=== PATIENT | male | born 1975 ===

== ENCOUNTER 2018-03-31 12:25 | Inpatient (IN) | payer OTHER ==
[~2018-03-31] VITALS: Ht 165.1 cm; Wt 60.4 kg
[2018-03-31 14:35] VITALS: BP 173/97
--- NOTE | 2018-03-31 15:07 | Physical Therapy Evaluation ---
PT Evaluation-General Medical Diagnosis Admission Date March 31, 2018 at 14:09 Medical Diagnosis: CVA Onset Date: Mar 25, 2018 Therapy Diagnosis Therapy Diagnosis: impaired mobility/weakness Precautions Precautions/Isolations: Fall Prevention, Standard Precautions Weight Bear Status Right Lower Extremity: Right Full Weight Bearing Left Lower Extremity: Left Full Weight Bearing Referral Physician: Guy Reason for Referral: Evaluation/Treatment Medical History Pertinent Medical History: HTN Additional Medical History was not taking meds for HTN due to cost Current History s/p right CVA with left hemiparesis Reviewed History: Yes Social History Home: Single Level Current Living Status: Other Family (sister) Entry Into Home: Stairs With Railing PT Steps Into Home: 2 Prior/Core FIM Prior Level of Function Functional Reynolds Measure 0=Not Assessed/NA 4=Minimal Assistance 1=Total Assistance 5=Supervision or Setup 2=Maximal Assistance 6=Modified Reynolds 3=Moderate Assistance 7=Complete Reynolds Bed Mobility: 7 Transfers (B,C,W/C) (FIM): 7 Gait: 7 Locomotion: 7 PT Evaluation-Current Subjective Patient agrees to PT. He was transferred from [facility] via w/c van. Pain Numeric Pain Scale: 0-No Pain Location: No Pain Reported Objective Patient Orientation: Normal For Age Problem Solving: Fair ROM/Strength ROM Lower Extremities bilateral LE WNL Strenght Lower Extremities right knee flexion/extension 4/5; hip flexion 4/5; DF/PF 4/5 left knee flexion 2-/5/extension 3-/5; hip flexion 2-/5 DF/PF 0/5 Integumentary/Posture Integumentary refer to nursing notes Bowel Incontinence: No Bladder Incontinence: No Posture WFL Neuromuscular (Tone, Coordination, Reflexes) noted increase extension tone left LE knee extension and supination left foot/ flaccid left UE/diminished proprioception left LE Sensory Vision: Functional Hearing: Functional Sensation Right Lower Extremit: Intact Sensation Left Lower Extremity: Impaired Transfers Functional Reynolds Measure 0=Not Assessed/NA 4=Minimal Assistance 1=Total Assistance 5=Supervision or Setup 2=Maximal Assistance 6=Modified Reynolds 3=Moderate Assistance 7=Complete IndependenceIRFPAI Quality Coding Scale 6 Independent with activity with or without an assistive device 5 Patient requires set up or clean up by helper. Patient completes activity by themselves 4 Supervision or touching assist (CGA). [place] provide cues , steadying assist 3 The helper provides less than half the effort to complete the activity 2 The helper provides more than half the effort to complete the activity 1 Dependent. The helper does all the effort to complete an activity 7 Patient refused to complete or attempt activity 9 The patient did not perform the activity before the current illness or injury 88 Not attempted due to Medical conditions or safety concerns Transfers (B, C, W/C) (FIM): 4 Scootin Rollin Roll Left to Right (QC): 5 Supine to/from Sit: 5 Sit to/from Stand: 4 bed t/f WC(FIM only if WC use): 4 Sit to Lying (QC): 5 Lying to Sitting/Side of Bed(Q: 5 Sit to Stand (QC): 4 Chair/Oyw-jz-Gteir Xfer(QC): 4 Car Transfer (QC): 4 Gait Does the Patient Walk?: Yes Mode of Locomotion: Both Anticipated Mode of Locomotion: Walk Gait (FIM): 3 Distance (FIM): 3=150 ft Walk 10 feet (QC): 4 Walk 50 ft with 2 Turns(QC): 4 Walk 150 ft (QC): 4 Walking 10ft/uneven surface-QC: 4 Distance: 150' Gait Level of Assist: 4 Gait Persons Needed: 1 Gait Assistive Device: Walker Platform (left) Comments/Gait Description left knee immobilizer in place during gait training. PT to add zabrina wrap to assist with left foot clearance. Patient has a fear of falling and is very guarded with weight shifting to clear left LE. Wheelchair Training Does the Pt Use a Wheelchair?: Yes Wheelchair (FIM): 5 Wheelchair Distance (FIM): 3=150 ft Distance: 150' Wheelchair Level of Assist: 5 Wheel 50 ft with 2 turns (QC): 5 Wheel 150 ft (QC): 5 Type of Wheelchair: Manual Stairs Stairs (FIM): 1 #of Steps: 1 Level of Assist: 3 1 Step (curb) (QC): 3 4 Steps (QC): 88 Assistive Device: Walker 12 Steps (QC): 88 Balance Sitting Static: Normal Sitting Dynamic: Normal Standing Static: Fair Standing Dynamic: Poor Picking up an Object (QC): 3 Assessment/Needs 42 y.o. male, s/p right CVA with left hemiparesis, will benefit from skilled PT to address functional strength and mobility to improve current LOF. Patient is currently limited with left sided weakness and safety awareness. Rehab Potential: Fair PT Short Term Goals Short Term Goals Time Frame: April 10, 2018 Transfers (B,C,W/C) (FIM): 4 Gait (FIM): 4 Distance (FIM): 3=150 ft Gait Distance Comment: 200' Gait Level of Assist: 4 Gait Assistive Device: Walker Osei Wheelchair (FIM): 5 Wheelchair distance (FIM): 3=150 ft Wheelchair Distance: 200' Wheelchair Level of Assist: 5 Stairs (FIM): 2 # of Steps: 4 Stairs Level of Assist: 4 PT Senior Care Goals Senior Care Goals PT Steel Spar Operator Goals Time Frame: April 30, 2018 Transfers (B,C,W/C) (FIM): 6 Sit to Lying (QC): 6 Lying-Sitting on Side/Bed(QC): 6 Sit to Stand (QC): 6 Rollin Roll Left to Right (QC): 6 Chair/Uma-we-Ohocg Xfer(QC): 6 Car Transfer (QC): 6 Does the Patient Walk: Yes Gait (FIM): 5 Gait distance (FIM): 3=150 ft Distance: 250' Walk 10 feet (QC): 6 Walk 10ft-Uneven Surface(QC): 5 Walk 50ft with 2 Turns (QC): 6 Walk 150 ft (QC): 6 Gait Level of Assist: 5 Gait Assistive Device: Walker Osei Does the Pt use WC or Scooter?: Yes Wheelchair (FIM): 6 Wheelchair distance (FIM): 3=150 ft Wheelchair Level of Assist: 6 Wheel 50 feet with 2 turns (QC: 6 Stairs (FIM): 5 # of Steps: 12 1 Step (curb) (QC): 5 4 Steps (QC): 5 12 Steps (QC): 5 Stairs Level Of Assist: 5 Picking up an Object (QC): 6 PT Plan Problem List Problem List: Activity Tolerance, Functional Strength, Safety, Balance, Gait, Transfer Treatment/Plan Treatment Plan: Continue Plan of Care Treatment Plan: Bed Mobility, Concurrent Therapy, Education, Functional Activity Aristides, Functional Strength, Group Therapy, Gait, Safety, Therapeutic Exercise, Transfers Treatment Duration: April 30, 2018 Frequency: At least 5 of 7 days/Wk (IRF) Estimated Hrs Per Day: 1.5 hours per day Patient and/or Family Agrees t: Yes Safety Risks/Education Patient Education: Gait Training, Transfer Techniques, Steps, Safety Issues Teaching Recipient: Patient Teaching Methods: Demonstration, Discussion Response to Teaching: Verbalize Understanding, Return Demonstration Discharge Recommendations Therapy D/C Recommendations: Home w/ Family Support Time/GCodes Time In: 1410 Time Out: 1450 Total Billed Treatment Time: 40 Total Billed Treatment 1 visit EVModC 20 min GT 20 min CECILIA FENTON PT March 31, 2018 15:07
--- NOTE | 2018-03-31 15:14 | PM&R Post Admission Assessment ---
Post Admission Physician Asses Date seen by provider: March 31, 2018 Time seen by provider: 15:00 Admisison Dx: (1) CVA (cerebral vascular accident) The preadmission screen agrees with the post admission assessment that the patient is a good candidate for inpatient rehabilitation. The patient will have a comprehensive program of inpatient rehabilitation with a goal of maximizing level of functional independence prior to discharge home with spouse. The patient will have PT/OT ninety minutes per day, each discipline, five days a week for gait, strengthening, conditioning, balance, ADLs, any patient/family/caregiver training as necessary. Speech therapy to do cognitive speech and swallow assessment and treat as indicated. Rehabilitation nursing to assist with bowel, bladder, skin, medication administration, pain management. Vascular Radiologist to assist with discharge planning, community reentry. SCD's and Xaralto for DVT prophylaxis. He appears to be well motivated to participate in three hours of therapy a day. He should be able to tolerate three hours of therapy a day from a medical standpoint. He should benefit from the three hours of therapy a day. He has a reasonable discharge plan, reasonable discharge rehabilitation goals and a supportive family. He has various comorbidities that need to be closely monitored with medications and treatments adjusted on a daily basis as needed. These include: HTN Barriers to discharge for this patient who had been independent prior to this are for him to be modified independent to supervision for ADLs and mobility skills prior to discharge home with spouse, so as to lessen the burden of the caregivers. Risks for this patient include: 1. Fall 2. Fracture 3. DVT 4. Pulmonary embolism 5. Poorly controlled HTN 6. Skin breakdown 7. Contractures 8. Poorly controlled pain 9. Urinary retention 10. UTI 11. Respiratory infection 12. Aspiration Estimated Length of Stay: 21 days Prognosis: Rehab prognosis appears good for goal of discharge home with spouse modified independent to supervision for ADLs and mobility skills. General: Alert, Oriented X3, Cooperative, No Acute Distress HEENT: Atraumatic, PERRLA, EOMI, Mucous Memb Moist/[place], Other (Coughing with swaloowing liquids) Neck: Supple, No JVD Lungs: Clear to Auscultation Heart: Regular Rate Abdomen: Normal Bowel Sounds, Soft, No Tenderness Extremities: No Edema Neuro: Other (Left HP) ANALY CHRISTY MD March 31, 2018 15:14
--- NOTE | 2018-03-31 16:07 | Occupational Therapy Eval ---
OT Evaluation-General/PLF Medical Diagnosis Admission Date March 31, 2018 at 14:09 Medical Diagnosis: CVA Onset Date: Mar 25, 2018 Therapy Diagnosis Therapy Diagnosis: decreased self care skills Precautions Precautions/Isolations: Fall Prevention, Standard Precautions Referral Physician: Guy Medical History Pertinent Medical History: HTN Current History Pt admitted secondary to CVA with left side deficits Reviewed History: Yes Social History Home: Single Level Current Living Status: Other Family (sister) Entry Into Home: Stairs With Railing Steps Into Home: 2 ADL-Prior Level of Function ADL PLOF Comments Pt reports being independent with self care and mobility prior to hospitalization DME/Equipment: Tub/Shower OT Current Status Subjective Pt sitting in w/c, agrees to therapy. Pt has no c/o pain. Mental Status/Objective Patient Orientation: Person, Place, Situation Current Glasses/Contacts: No Hearing Aids: No Dentures/Partials: No Hand Dominance: Right Upper Extremity ROM Right UE AROM WFL Left UE: no active movement noted. PROM WFL Upper Extremity Coordination Right UE intact Left UE impaired Upper Extremity Strength Right UE WFL Left UE 0/5 ADL-Treatment ADL-Current Pt performed w/c mobility to restroom with SBA. Grooming completed seated at sink. Pt combed hair and washed face with SBA using right UE. Pt demonstrated ability to perform stand pivot transfer w/c<-> toilet with minimal assistance using grab bar for balance and safety. Pt was shown shower in room and requested to practice transfer to shower bench. Pt able to transfer w/c <-> shower bench with minimal assistance. Pt requests to shower tomorrow morning. Pt doffed shoes and socks with supervision and increased time. Pt able to don right sock with SBA. Donned left sock with mod assist. Pt donned right shoe with assist only to tie. Max assist to don left shoe and assist to tie. Pt requests to get into bed after session. Transfer w/c to bed with minimal assistance to right side. Sit to supine with SBA. Pt resting in bed with needs met after session. Functional [place] Measure 0=Not Assessed/NA 4=Minimal Assistance 1=Total Assistance 5=Supervision or Setup 2=Maximal Assistance 6=Modified [place] 3=Moderate Assistance 7=Complete IndependenceIRFPAI Quality Coding Scale 6 Independent with activity with or without an assistive device 5 Patient requires set up or clean up by helper. Patient completes activity by themselves 4 Supervision or touching assist (CGA). [place] provide cues , steadying assist 3 The helper provides less than half the effort to complete the activity 2 The helper provides more than half the effort to complete the activity 1 Dependent. The helper does all the effort to complete an activity 7 Patient refused to complete or attempt activity 9 The patient did not perform the activity before the current illness or injury 88 Not attempted due to Medical conditions or safety concerns Eating (FIM): 5 (by report: Pt reports assist to manage packages/containers, but states he is able to feed self after set up.) Eating (QC): 5 Grooming (FIM): 5 On/Off Footwear (QC): 2 Toilet/Commode Transfer (FIM): 4 Toilet Transfer (QC): 3 Education OT Patient Education: Rehab process Teaching Recipient: Patient Teaching Methods: Discussion Response to Teaching: Verbalize Understanding OT Short Term Goals Short Term Goals Time Frame: April 07, 2018 Bathing(FIM): 4 Upper Body Dressing(FIM): 4 Lower Body Dressing(FIM): 4 Toileting(FIM): 4 Shower Transfer(FIM): 4 Additional Short Term Goals: 2-Verbalize Understanding, 3-ImproveStrength/Aristides 1=Demonstrate adherence to instructed precautions during ADL tasks. 2=Patient will verbalize/demonstrate understanding of assistive devices/ modifications for ADL. 3=Patient will improve strength/tolerance for activity to enable patient to perform ADL's. OT Director Of Audiology Goals Director Of Audiology Goals Time Frame: April 21, 2018 Eating (FIM): 6 Eating (QC): 6 Groomin Oral Hygiene (QC): 6 Bathing(FIM): 5 Shower/Bathe Self (QC): 5 Upper Body Dressing(FIM): 6 Upper Body Dressing (QC): 6 Lower Body Dressing(FIM): 5 Lower Body Dressing (QC): 5 On/Off Footwear (QC): 5 Toileting(FIM): 6 Toileting Hygiene (QC): 6 Toilet/Commode Transfer(FIM): 6 Toilet/Commode Transfer (QC): 6 Shower Transfer(FIM): 5 Additional Goals: 2-Verbalize Understanding, 3-ImproveStrength/Aristides 1=Demonstrate adherence to instructed precautions during ADL tasks. 2=Patient will verbalize/demonstrate understanding of assistive devices/ modifications for ADL. 3=Patient will improve strength/tolerance for activity to enable patient to perform ADL's. OT Education/Plan Problem List/Assessment Assessment: Decreased UE Strength, Dependent Transfers, Impaired Funct Balance , Impaired Self-Care Skills Discharge Recommendations Plan/Recommendations: Continue POC Treatment Plan/Plan of Care Treatment,Training & Education: Yes Patient would benefit from OT for education, treatment and training to promote independence in ADL's, mobility, safety and/or upper extremity function for ADL' s. Plan of Care: ADL Retraining, Functional Mobility, Group Exercise/Act as Ind, UE Funct Exercise/Act, UE Neuromus Re-Ed/Coord Treatment Duration: April 21, 2018 Frequency: At least 5 of 7 days/Wk (IRF) Estimated Hrs Per Day: 1.5 hours per day Agreement: Yes Rehab Potential: Fair Time/GCodes Start Time: 14:50 Stop Time: 15:50 Total Time Billed (hr/min): 60 Billed Treatment Time 1 visit, EVM(30minutes), ADLx2(30minutes) GUSTAVO IZAGUIRRE OT March 31, 2018 16:07
--- NOTE | 2018-03-31 17:04 | HISTORY AND PHYSICAL ---
DATE OF SERVICE: CHIEF COMPLAINT: Difficulty with walking. HISTORY OF PRESENT ILLNESS: The patient is a 42-year-old male, who has been working in [place], [place] and living with his who was independent, who sustained a right CVA with resulting left hemiparesis and had a decline in his functional independence. He was treated acutely at [facility] in [place], [place] and is currently on aspirin and Lipitor as well as Xarelto, also lisinopril for hypertension and currently he requires assistance for ADLs, mobility skills and is referred to inpatient rehabilitation at [facility] so as to be closer to home. He is without any medical insurance currently, but I believe he has Medicaid pending.He was outside the window for TPA MRI revealed a RT Internal Capsular stroke.He had been on Xeralto but stopped taking it due to financial reasons. 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 PAST MEDICAL HISTORY: Hypertension.and as per above PAST SURGICAL HISTORY: Noncontributory. ALLERGIES: PENICILLIN. FAMILY HISTORY: Noncontributory. SOCIAL HISTORY: Lives with his spouse in [place], has supportive family nearby. REVIEW OF SYSTEMS: A 10-point review of systems significant for choking with liquids, left-sided weakness and tobaccoism. MEDICATIONS: ASA 81 mg p.o. daily, Lipitor 80 mg p.o. at bedtime, Xarelto 20 mg p.o. subcutaneous evening, lisinopril 5 mg p.o. daily. PHYSICAL EXAMINATION: GENERAL: Significant for male appearing his stated age, alert and oriented, sitting in wheelchair, choking on a beverage and coughing. VITAL SIGNS: He is afebrile, pulse is 86, respirations 16, blood pressure 173/97 and O2 sat 98% on room air. HEENT: Vision, speech, hearing grossly intact. No oral lesion is noted. NECK: Supple without mass. HEART: Regular rate and rhythm. CHEST: Clear. ABDOMEN: Soft, nontender, bowel sounds present. EXTREMITIES: No leg edema, no calf tenderness. MUSCULOSKELETAL: He has functional passive range of motion of all 4 extremities. NEUROLOGIC: He has a left hemiparesis, probable dysphagia with coughing with swallowing liquids. Sensation is grossly intact to touch. Cognition appears grossly intact.Tone is increased in Left LE. Left Knee flex 2-/5 Ext 3-/5 Hip flex 2-/5 0/5 at ankle RT LE 4/5 Left Upper Ext 0/5 RT UE Functional Functional status He is setup for Eating and grooming Min assist for Toilet transfers Max assist for Lower body dressing.He is Min assist for gait with hemiplatform walker IMPRESSION: 1. Right middle cerebral artery distribution stroke with left hemiparesis and probable dysphagia. 2. Hypertension, controlled with medication. 3. Stroke prophylaxis, on aspirin, Xarelto and statin. 4. 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 The patient will have PT, OT as well as speech therapy. Please see post-admission physician evaluation, a separate document for details of plan of care. Rehabilitation nursing to assist with bowel, bladder, skin care, medication administration, pain management. environmental services associate for discharge planning, community reentry. Consult Dr. Hackett to assist with medical management of this out of town patient. PCP is listed as Dr. Rae in [facility]. ESTIMATED LENGTH OF STAY: 21 days. PROGNOSIS: Rehab prognosis appears good for goal of discharging home with spouse, hopefully modified independent to supervision for ADLs, mobility skills. DIET: Regular. CODE STATUS: Full code. Job ID: [id number] DocumentID: [id number] Dictated Date: 03/31/2018 15:04:39 Open Hearth Furnace Operator Date: 03/31/2018 17:03:35 Dictated By: ANALY CHRISTY MD [facility]
[2018-03-31] MEDS: RIVAROXABAN 20 MG TABLET (XARELTO) PO SCH (17:09)
[2018-03-31 17:42] VITALS: BP 146/76
[2018-03-31] MEDS ORDERED: ATORVASTATIN 20 MG (LIPITOR) TABLET PO SCH (21:00)
[2018-03-31] MEDS ORDERED: ATORVASTATIN 40 MG (LIPITOR) TABLET PO SCH (21:00)
[2018-03-31] MEDS: ATORVASTATIN 80 MG (LIPITOR) TABLET PO SCH (21:06)
[2018-04-01 05:47] VITALS: BP 152/89
[2018-04-01] MEDS: ASPIRIN E.C. 81 MG (ECOTRIN) TAB PO SCH (08:32)
[2018-04-01] MEDS: lisINopril 5 MG (PRINIVIL) TABLET PO SCH (08:32)
[2018-04-01] MEDS ORDERED: lisINopril 40 MG (PRINIVIL) TABLET PO SCH (09:00)
--- NOTE | 2018-04-01 09:15 | Occupational Ther Daily Note ---
OT Current Status-Daily Note Subjective Pt in bed, agree to treatment. No c/o pain. Mental Status/Objective Functional [place] Measure 0=Not Assessed/NA 4=Minimal Assistance 1=Total Assistance 5=Supervision or Setup 2=Maximal Assistance 6=Modified [place] 3=Moderate Assistance 7=Complete [place] ADL-Treatment Pt supine to sit with supervision. Transfer to w/c with minimal assistance. To restroom via w/c. Pt transferred w/c <-> shower bench with minimal assistance using grab bars, cues for safety. Seated bathing completed using hand held shower. Pt required assist to wash right UE, bilateral feet, and buttocks. Pt had one LOB while seated requiring minimal assistance to correct. Pt stood with minimal assistance for balance while washing buttocks. Pt required assist to thread left UE into shirt sleeve. Then able to hide puller head and thread right UE into sleeve. Pt required assist to start underwear and shorts over feet, then able to pull up to knees. Pt sit to stand with minimal assistance using grab bar, but requires assist to pull pants up over hips and zip/button shorts. Assist required to start socks over toes, then able to pull on the rest of the way. Assist to don and tie shoes. Grooming tasks completed seated at sink. Pt shaved, combed hair, and brushed teeth with SBA. Pt attempted to stand and use urinal, but was unable to void. Pt required assist for clothing management and to hold urinal. Pt sitting in w/c with needs met after session. Functional [place] Measure 0=Not Assessed/NA 4=Minimal Assistance 1=Total Assistance 5=Supervision or Setup 2=Maximal Assistance 6=Modified [place] 3=Moderate Assistance 7=Complete IndependenceIRFPAI Quality Coding Scale 6 Independent with activity with or without an assistive device 5 Patient requires set up or clean up by helper. Patient completes activity by themselves 4 Supervision or touching assist (CGA). [place] provide cues , steadying assist 3 The helper provides less than half the effort to complete the activity 2 The helper provides more than half the effort to complete the activity 1 Dependent. The helper does all the effort to complete an activity 7 Patient refused to complete or attempt activity 9 The patient did not perform the activity before the current illness or injury 88 Not attempted due to Medical conditions or safety concerns Grooming (FIM): 5 Oral Hygiene (QC): 4 Bathing (FIM): 3 Shower/Bathe Self (QC): 3 Upper Body (FIM): 3 Upper Body Dressing (QC): 3 Lower Body Dressing (FIM): 2 Lower Body Dressing (QC): 2 On/Off Footwear (QC): 2 Shower Transfer(FIM): 4 OT Short Term Goals Short Term Goals Time Frame: April 07, 2018 Bathing(FIM): 4 Upper Body Dressing(FIM): 4 Lower Body Dressing(FIM): 4 Toileting(FIM): 4 Shower Transfer(FIM): 4 Additional Short Term Goals: 2-Verbalize Understanding, 3-ImproveStrength/Aristides 1=Demonstrate adherence to instructed precautions during ADL tasks. 2=Patient will verbalize/demonstrate understanding of assistive devices/ modifications for ADL. 3=Patient will improve strength/tolerance for activity to enable patient to perform ADL's. OT Long-Term Goals Counter Top Assembler Goals Time Frame: April 21, 2018 Eating (FIM): 6 Eating (QC): 6 Groomin Oral Hygiene (QC): 6 Bathing(FIM): 5 Shower/Bathe Self (QC): 5 Upper Body Dressing(FIM): 6 Upper Body Dressing (QC): 6 Lower Body Dressing(FIM): 5 Lower Body Dressing (QC): 5 On/Off Footwear (QC): 5 Toileting(FIM): 6 Toileting Hygiene (QC): 6 Toilet/Commode Transfer(FIM): 6 Toilet/Commode Transfer (QC): 6 Shower Transfer(FIM): 5 Additional Goals: 2-Verbalize Understanding, 3-ImproveStrength/Aristides 1=Demonstrate adherence to instructed precautions during ADL tasks. 2=Patient will verbalize/demonstrate understanding of assistive devices/ modifications for ADL. 3=Patient will improve strength/tolerance for activity to enable patient to perform ADL's. OT Education/Plan Discharge Recommendations Plan/Recommendations: Continue POC Treatment Plan/Plan of Care Patient would benefit from OT for education, treatment and training to promote independence in ADL's, mobility, safety and/or upper extremity function for ADL' s. Plan of Care: ADL Retraining, Functional Mobility, Group Exercise/Act as Ind, UE Funct Exercise/Act, UE Neuromus Re-Ed/Coord Treatment Duration: April 21, 2018 Frequency: At least 5 of 7 days/Wk (IRF) Estimated Hrs Per Day: 1.5 hours per day Agreement: Yes Rehab Potential: Fair Time/GCodes Start Time: 08:00 Stop Time: 09:00 Total Time Billed (hr/min): 60 Billed Treatment Time 1 visit, ADLx4(60minutes) GUSTAVO IZAGUIRRE OT April 01, 2018 09:15
--- NOTE | 2018-04-01 09:42 | PM & R (SOAP) Progress Note ---
Subjective This was a face to face visit with the patient. Date Seen by Provider: April 01, 2018 Time Seen by Provider: 07:45 Subjective/Events-last exam Patient was seen in his room this AM Adjusting well to unit Discussed case with Dr byrnes Patient min assist for transfers Review of Systems Neurological: Weakness Objective Physician Exam Last Set of Vital Signs Vital Signs Date Time Temp Pulse Resp B/P (MAP) Pulse Ox O2 Delivery O2 Flow Rate FiO2 04/01/18 05:47 96.4 92 18 152/89 (110) 100 Room Air Capillary Refill : I&O Intake and Output 04/01/18 00:00 Intake Total 200 ml Output Total 300 ml Balance -100 ml Intake Oral 200 ml Output Urine Total 300 ml Daily Weight Change No General: Alert, Oriented X3, Cooperative, No Acute Distress HEENT: Atraumatic, PERRLA, EOMI, Mucous Memb Moist/Raub, Other (Coughing with swaloowing liquids) Neck: Supple, No JVD Lungs: Clear to Auscultation Heart: Regular Rate Abdomen: Normal Bowel Sounds, Soft, No Tenderness Extremities: No Edema Neuro: Other (Left HP) Assessment/Plan Assessment and Plan 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
--- NOTE | 2018-04-01 10:05 | Physical Therapy Daily Note ---
PT Daily Note-Current Subjective Pt. agrees to Rx. No c/o Pain Numeric Pain Scale: 0-No Pain Mental Status Patient Orientation: Normal For Age sling LUE, knee immobl left knee, SRIKANTH wrap left ankle to attempt to stablize ankle inversion Transfers Functional [place] Measure 0=Not Assessed/NA 4=Minimal Assistance 1=Total Assistance 5=Supervision or Setup 2=Maximal Assistance 6=Modified [place] 3=Moderate Assistance 7=Complete IndependenceIRFPAI Quality Coding Scale 6 Independent with activity with or without an assistive device 5 Patient requires set up or clean up by helper. Patient completes activity by themselves 4 Supervision or touching assist (CGA). [place] provide cues , steadying assist 3 The helper provides less than half the effort to complete the activity 2 The helper provides more than half the effort to complete the activity 1 Dependent. The helper does all the effort to complete an activity 7 Patient refused to complete or attempt activity 9 The patient did not perform the activity before the current illness or injury 88 Not attempted due to Medical conditions or safety concerns Transfers (B, C, W/C) (FIM): 4 Scootin Rollin Supine to/from Sit: 6 Sit to/from Stand: 5 Bed to/from Chair: 4 Weight Bearing Right Lower Extremity: Right Full Weight Bearing Left Lower Extremity: Left Full Weight Bearing Gait Training Does the Patient Walk?: Yes Gait (FIM): 3 Distance (FIM): 3=150 ft (175,100) Gait Level of Assist: 3 Gait Persons Needed: 1 Gait Assistive Device: Walker Osei min LOB episodes during turns x 3, as left foot ankle rolls inversion Wheelchair Training Does the Pt Use a Wheelchair?: Yes Wheelchair (FIM): 6 Wheelchair Distance: 3=150 ft (200ft plus) Wheelchair Level of Assist: 6 Type of Wheelchair: Manual manages safe mobility as well as brakes and rotating leg rests indep Exercises Supine Ex: Bridging (taggered), Ankle pumps (HC stretch ), Quad Set, Rolling, Glut sets, Heel Slides, Short Arc Quads (assist), Scooting, Straight leg raise, Hip abd/add Supine Reps: 15 mass extension left x 10 Assessment Current Status: Good Progress attempted to fit pt. with off shelf AFO to no avail PT Short Term Goals Short Term Goals Time Frame: April 10, 2018 Gait (FIM): 4 Distance (FIM): 3=150 ft Gait Distance Comment: 200' Gait Level of Assist: 4 Gait Assistive Device: Walker Osei Wheelchair (FIM): 5 Wheelchair distance (FIM): 3=150 ft Wheelchair Distance: 200' Wheelchair Level of Assist: 5 Stairs (FIM): 2 # of Steps: 4 Stairs Level of Assist: 4 PT Barrel Coater Goals Barrel Coater Goals PT Barrel Coater Goals Time Frame: April 30, 2018 Transfers (B,C,W/C) (FIM): 6 Sit to Lying (QC): 6 Lying-Sitting on Side/Bed(QC): 6 Sit to Stand (QC): 6 Rollin Roll Left to Right (QC): 6 Chair/Pfy-pf-Ovooh Xfer(QC): 6 Car Transfer (QC): 6 Does the Patient Walk: Yes Gait (FIM): 5 Gait distance (FIM): 3=150 ft Distance: 250' Walk 10 feet (QC): 6 Walk 10ft-Uneven Surface(QC): 5 Walk 50ft with 2 Turns (QC): 6 Walk 150 ft (QC): 6 Gait Level of Assist: 5 Gait Assistive Device: Walker Osei Does the Pt use WC or Scooter?: Yes Wheelchair (FIM): 6 Wheelchair distance (FIM): 3=150 ft Wheelchair Level of Assist: 6 Wheel 50 feet with 2 turns (QC: 6 Stairs (FIM): 5 # of Steps: 12 1 Step (curb) (QC): 5 4 Steps (QC): 5 12 Steps (QC): 5 Stairs Level Of Assist: 5 Picking up an Object (QC): 6 PT Plan Treatment/Plan Treatment Plan: Continue Plan of Care Treatment Plan: Bed Mobility, Concurrent Therapy, Education, Functional Activity Aristides, Functional Strength, Group Therapy, Gait, Safety, Therapeutic Exercise, Transfers Treatment Duration: April 30, 2018 Frequency: At least 5 of 7 days/Wk (IRF) Estimated Hrs Per Day: 1.5 hours per day Patient and/or Family Agrees t: Yes Safety Risks/Education Patient Education: Gait Training, Transfer Techniques, Correct Positioning, W/ C Management, Disease Process, Safety Issues Teaching Recipient: Patient Teaching Methods: Demonstration, Discussion Response to Teaching: Verbalize Understanding, Return Demonstration, Reinforcement Needed Time/GCodes Time In: 900 Time Out: 1000 Total Billed Treatment Time: 60 Total Billed Treatment 1,GT25m,EX20m,WC15m G Codes Necessary: JENNIFER Goodwin EVENTS MANAGER April 01, 2018 10:05
--- NOTE | 2018-04-01 11:39 | ST Cognitive Linguistic Eval ---
Speech Evaluation-General Medical Diagnosis CVA Onset Date: Mar 25, 2018 Therapy Diagnosis Therapy Diagnosis: Mild Dysarthria Precautions Precautions/Isolations: Fall Prevention, Standard Precautions Referral Referring Physician: Dr. Adonis Tovar Reason for Referral: Evaluation/Treatment Cognitive, Speech, Language Evaluation Medical History Pertinent Medical History: HTN Current History The patient recently experienced a CVA which resulted in left sided weakness and slurred speech. Reviewed History: Yes Social History Current Living Status: Other Family (sister) Speech PLF-Current Status Prior Level of Function The patient denied prior challenges with speech, language, or cognition. The patient reported complete independence with all ADL's prior to admission. To note, the patient stated he was experiencing swallowing difficulty, however, consistently utilized the recommendation of a chin tuck (to the right) which eliminates any signs/symptoms of aspiration. The patient independently demonstrated this technique throughout the session with high accuracy and no signs/symptoms of aspiration demonstrated. Subjective The patient was seated upright in recliner upon entrance. The patient greeted the clinician appropriately and was agreeable with participation in the cognitive, speech, and language evaluation. Language Eval: Auditory Comprehends Simple Yes/No Ques: Functional Indent/Objects Multiple Rivera: Functional Ident/Pics in Multiple Rivera: Functional Follows 1-Step Commands: Functional Follows Complex Directions: Functional Follows General Conversations: Functional Language Eval: Verbal Language Completes Spontaneous Greeting: Functional Produces Auto, Serial Info: Functional Imitates Simple Words/Phrases: Functional Word Finding: Functional Requests Basic Needs: Functional States Basic Personal Info: Functional Expresses Complex Ideas: Functional Language Evaluation: Reading Comprehends Single Nouns: Functional Follows Simple Written Direct: Functional Language Evaluation: Writing Copies/Traces: Functional Writes Personal Information: Functional Cognitive Patient Orientation The patient was independently oriented to self, location, month, day of week, date, and year. Objective Cognitive Domain Attention: WNL Memory: WNL Problem Solving: Functional Executive Functions: WNL Objective Oral Motor/Speech Production The patient displays left facial, labial, and lingual weakness. Imprecise articulation was noted which results in a "slurring" of the patient's speech. Regardless of the facial weakness, the patient remains 100% intelligible in known and unknown contexts. Impression The patient displays mild dysarthria (consistent with flaccid-type) characterized by left facial, labial, and lingual weakness. Communication/Social Cognition Comprehension: 7 Expression: 5 Social Interaction: 7 Problem Solvin Memory: 7 Speech Short Term Goals Short Term Goals Short Term Goals 1. The patient will demonstrate 90% accuracy with oral motor exercises and intelligibility strategies with mild clinician cueing. Time Frame-STG: Ten Days Speech Shelter Goals Shelter Goals 1. The patient will demonstrate improved expression for increased function and safety with ADL's in the least restrictive setting. Time Frame: Two Weeks Comprehension: 7 Expression: 7 Social Interaction: 7 Problem Solvin Memory: 7 Speech-Plan Treatment Plan Speech Therapy Treatment Plan: Continue Plan of Care Continue skilled speech pathology to target improved expressive communication. Treatment Duration: April 15, 2018 Frequency: 3 times per week Estimated Hrs Per Day: .5 hour per day Rehab Potential: Good Safety Risks/Education Teaching Recipient: Patient Teaching Methods: Discussion Response to Teaching: Verbalize Understanding Education Topics Provided: Results, Recommendations, Plan of Care Time Speech Therapy Time In: 10:30 Speech Therapy Time Out: 11:00 Total Billed Time: 30 Billed Treatment Time 1, ALEX MCNEIL April 01, 2018 11:39
--- NOTE | 2018-04-01 12:44 | Occupational Ther Daily Note ---
OT Current Status-Daily Note Subjective Pt sitting in chair, agrees to treatment. Mental Status/Objective Functional [place] Measure 0=Not Assessed/NA 4=Minimal Assistance 1=Total Assistance 5=Supervision or Setup 2=Maximal Assistance 6=Modified [place] 3=Moderate Assistance 7=Complete [place] ADL-Treatment Pt has difficulty doffing/donning shoes, so elastic shoelaces were placed in shoes. Pt was able to don right shoe with moderate assistance, but required max assist for left shoe. After session pt able to doff right shoe with min assist for balance and left shoe with max assist. Functional [place] Measure 0=Not Assessed/NA 4=Minimal Assistance 1=Total Assistance 5=Supervision or Setup 2=Maximal Assistance 6=Modified [place] 3=Moderate Assistance 7=Complete IndependenceIRFPAI Quality Coding Scale 6 Independent with activity with or without an assistive device 5 Patient requires set up or clean up by helper. Patient completes activity by themselves 4 Supervision or touching assist (CGA). [place] provide cues , steadying assist 3 The helper provides less than half the effort to complete the activity 2 The helper provides more than half the effort to complete the activity 1 Dependent. The helper does all the effort to complete an activity 7 Patient refused to complete or attempt activity 9 The patient did not perform the activity before the current illness or injury 88 Not attempted due to Medical conditions or safety concerns Other Treatment Pt performed w/c mobility to therapy gym using right UE/LE with SBA. Transfer w/ c <-> edge of mat with minimal assistance to right side. Weight bearing completed through left UE while seated edge of mat. Assist required to maintain proper positioning of left UE. PROM completed left UE at all joints x10 reps. No active movement noted. Pt returned to room and completed sit to supine with SBA. Pt resting in bed with needs met after session. OT Short Term Goals Short Term Goals Time Frame: April 07, 2018 Bathing(FIM): 4 Upper Body Dressing(FIM): 4 Lower Body Dressing(FIM): 4 Toileting(FIM): 4 Shower Transfer(FIM): 4 Additional Short Term Goals: 2-Verbalize Understanding, 3-ImproveStrength/Aristides 1=Demonstrate adherence to instructed precautions during ADL tasks. 2=Patient will verbalize/demonstrate understanding of assistive devices/ modifications for ADL. 3=Patient will improve strength/tolerance for activity to enable patient to perform ADL's. OT Drafter Geological Goals Drafter Geological Goals Time Frame: April 21, 2018 Eating (FIM): 6 Eating (QC): 6 Groomin Oral Hygiene (QC): 6 Bathing(FIM): 5 Shower/Bathe Self (QC): 5 Upper Body Dressing(FIM): 6 Upper Body Dressing (QC): 6 Lower Body Dressing(FIM): 5 Lower Body Dressing (QC): 5 On/Off Footwear (QC): 5 Toileting(FIM): 6 Toileting Hygiene (QC): 6 Toilet/Commode Transfer(FIM): 6 Toilet/Commode Transfer (QC): 6 Shower Transfer(FIM): 5 Comprehension(FIM): 7 Expression (FIM): 7 Social Interaction(FIM): 7 Problem Solving(FIM): 7 Memory(FIM): 7 Additional Goals: 2-Verbalize Understanding, 3-ImproveStrength/Aristides 1=Demonstrate adherence to instructed precautions during ADL tasks. 2=Patient will verbalize/demonstrate understanding of assistive devices/ modifications for ADL. 3=Patient will improve strength/tolerance for activity to enable patient to perform ADL's. OT Education/Plan Discharge Recommendations Plan/Recommendations: Continue POC Treatment Plan/Plan of Care Patient would benefit from OT for education, treatment and training to promote independence in ADL's, mobility, safety and/or upper extremity function for ADL' s. Plan of Care: ADL Retraining, Functional Mobility, Group Exercise/Act as Ind, UE Funct Exercise/Act, UE Neuromus Re-Ed/Coord Treatment Duration: April 21, 2018 Frequency: At least 5 of 7 days/Wk (IRF) Estimated Hrs Per Day: 1.5 hours per day Agreement: Yes Rehab Potential: Good Time/GCodes Start Time: 11:20 Stop Time: 11:50 Total Time Billed (hr/min): 30 Billed Treatment Time 1 visit, ADL(10minutes), EX(20minutes) GUSTAVO IZAGUIRRE OT April 01, 2018 12:43
--- NOTE | 2018-04-01 14:32 | Physical Therapy Daily Note ---
PT Daily Note-Current Subjective Pt. asleep in bed, agrees to rx. Pain Numeric Pain Scale: 0-No Pain Mental Status Patient Orientation: Normal For Age Transfers Functional [place] Measure 0=Not Assessed/NA 4=Minimal Assistance 1=Total Assistance 5=Supervision or Setup 2=Maximal Assistance 6=Modified [place] 3=Moderate Assistance 7=Complete IndependenceIRFPAI Quality Coding Scale 6 Independent with activity with or without an assistive device 5 Patient requires set up or clean up by helper. Patient completes activity by themselves 4 Supervision or touching assist (CGA). [place] provide cues , steadying assist 3 The helper provides less than half the effort to complete the activity 2 The helper provides more than half the effort to complete the activity 1 Dependent. The helper does all the effort to complete an activity 7 Patient refused to complete or attempt activity 9 The patient did not perform the activity before the current illness or injury 88 Not attempted due to Medical conditions or safety concerns all TRFs min to CGA toward right, mod assist to left. Weight Bearing Right Lower Extremity: Right Full Weight Bearing Left Lower Extremity: Left Full Weight Bearing Gait Training gait attempted at [facility] in [place] with and without knee immobilizer. pt. continues with tone and unstable extension left knee. needs either tactile stabilizing or knee immobilizer to stabilize left knee for gait Exercises Seated Therapy Exercises: Sit to stand, Hip flexion Seated Reps: 10 NuStep Minutes: 12 NuStep Workload: 3 (no hand use to facilitate LE use) Assessment Current Status: Fair Progress requires mod assist for safe TRFs and gait, continues dependent for safety PT Short Term Goals Short Term Goals Time Frame: April 10, 2018 Gait (FIM): 4 Distance (FIM): 3=150 ft Gait Distance Comment: 200' Gait Level of Assist: 4 Gait Assistive Device: Walker Osei Wheelchair (FIM): 5 Wheelchair distance (FIM): 3=150 ft Wheelchair Distance: 200' Wheelchair Level of Assist: 5 Stairs (FIM): 2 # of Steps: 4 Stairs Level of Assist: 4 PT Brand Protection Manager Goals Group Home Goals PT Group Home Goals Time Frame: April 30, 2018 Transfers (B,C,W/C) (FIM): 6 Sit to Lying (QC): 6 Lying-Sitting on Side/Bed(QC): 6 Sit to Stand (QC): 6 Rollin Roll Left to Right (QC): 6 Chair/Zql-mh-Icosl Xfer(QC): 6 Car Transfer (QC): 6 Does the Patient Walk: Yes Gait (FIM): 5 Gait distance (FIM): 3=150 ft Distance: 250' Walk 10 feet (QC): 6 Walk 10ft-Uneven Surface(QC): 5 Walk 50ft with 2 Turns (QC): 6 Walk 150 ft (QC): 6 Gait Level of Assist: 5 Gait Assistive Device: Walker Osei Does the Pt use WC or Scooter?: Yes Wheelchair (FIM): 6 Wheelchair distance (FIM): 3=150 ft Wheelchair Level of Assist: 6 Wheel 50 feet with 2 turns (QC: 6 Stairs (FIM): 5 # of Steps: 12 1 Step (curb) (QC): 5 4 Steps (QC): 5 12 Steps (QC): 5 Stairs Level Of Assist: 5 Picking up an Object (QC): 6 PT Plan Treatment/Plan Treatment Plan: Continue Plan of Care Treatment Plan: Bed Mobility, Concurrent Therapy, Education, Functional Activity Aristides, Functional Strength, Group Therapy, Gait, Safety, Therapeutic Exercise, Transfers Treatment Duration: April 30, 2018 Frequency: At least 5 of 7 days/Wk (IRF) Estimated Hrs Per Day: 1.5 hours per day Patient and/or Family Agrees t: Yes Safety Risks/Education Patient Education: Gait Training, Transfer Techniques Teaching Recipient: Patient Teaching Methods: Demonstration, Discussion Response to Teaching: Verbalize Understanding, Return Demonstration, Reinforcement Needed Time/GCodes Time In: 1400 Time Out: 1430 Total Billed Treatment Time: 30 Total Billed Treatment 1,FA20m,EX10m G Codes Necessary: JENNIFER Goodwin THERAPEUTIC RECREATION DIRECTOR April 01, 2018 14:32
[2018-04-01] MEDS: RIVAROXABAN 20 MG TABLET (XARELTO) PO SCH (17:22)
[2018-04-01 18:00] VITALS: BP 142/90
--- NOTE | 2018-04-01 18:52 | Consultation ---
History of Present Illness History of Present Illness Patient Consulted On(romain/time) 04/01/18 18:48 Time Seen by Provider: 18:20 History of Present Illness Patient age 42 lives in [facility]. Patient had a stroke on his right with deficit on the left side and drooping of left mouth and left upper and lower extremities. Patient has a history of drinking 12 pack a week. Patient has a history of smoking a pack a day. Family history colon cancer infarct family with brother dying Allergies and Home Medications Allergies Coded Allergies: Penicillins (Verified Allergy, Unknown, 03/31/18) Home Medications No Active Prescriptions or Reported Meds Patient Home Medication List Home Medication List Reviewed: Yes Past Plwxhpl-Ukeiar-Katozs Hx Patient Social History Smoking Status: Current Everyday Smoker Type Used: Cigarettes Recent Foreign Travel: No Contact w/Someone Who Travel: No Recent Infectious Disease Expo: No Past Medical History Cardiac: Yes ([place] type B Aortic dissection) Neurological: Yes Family Medical History Colon cancer 19 MOTHER Review of Systems-General Constitutional: no symptoms reported EENTM: no symptoms reported, other (Been left side of mouth) Respiratory: no symptoms reported Cardiovascular: no symptoms reported Gastrointestinal: no symptoms reported Genitourinary: no symptoms reported Skin: no symptoms reported Psychiatric/Neurological: No Symptoms Reported Physical Exam-General Problems Physical Exam Vital Signs Vital Signs - First Documented 03/31/18 14:35 Temp 96.7 Pulse 88 Resp 16 B/P (MAP) 173/97 (122) Pulse Ox 98 O2 Delivery Room Air Capillary Refill : General Appearance: WD/WN, no apparent distress Eyes: Bilateral Eye Normal Inspection HEENT: normal ENT inspection, other (Side of mouth droops) Neck: full range of motion, normal inspection Respiratory: lungs clear, normal breath sounds, no respiratory distress, no accessory muscle use Cardiovascular: regular rate, rhythm, no murmur Gastrointestinal: non tender, soft Assessment/Plan Assessment/Plan Admission Diagnosis/Plan CVA history of tobaccoism History of drinking Admission Status: Inpatient Order (span 2 midnights) Reason for Inpatient Admission: CVA needs physical therapy and occupational therapy Clinical Quality Measures DVT/VTE Risk/Contraindication: Risk Factor Score Per Nursin RFS Level Per Nursing on Admit: 4+=Very High MARITZA ROE DO April 01, 2018 18:52
[2018-04-01] MEDS: ATORVASTATIN 80 MG (LIPITOR) TABLET PO SCH (21:21)
[2018-04-02 06:00] VITALS: BP 137/87
[2018-04-02 06:04] LABS: HEMOGLOBIN 14.9 G/DL (13.3-17.7); MEAN PLATELET VOLUME 12.3 FL (7.4-10.4); RED BLOOD COUNT 4.6 10^6/uL (4.35-5.85); RED CELL DISTRIBUTION WIDTH 12.3 % (10.0-14.5); WHITE BLOOD COUNT 8.8 10^3/uL (4.3-11.0)
[2018-04-02 06:31] LABS: ALANINE AMINOTRANSFERASE 26 U/L (0-55); ALBUMIN 4.1 GM/DL (3.2-4.5); ALKALINE PHOSPHATASE 94 U/L (40-136); BILIRUBIN,TOTAL 0.9 MG/DL (0.1-1.0); BUN/CREATININE RATIO 20; CALCIUM 9.3 MG/DL (8.5-10.1); CARBON DIOXIDE 23 MMOL/L (21-32); CHLORIDE 106 MMOL/L (98-107); CREATININE SERUM 0.81 MG/DL (0.60-1.30); GFR ESTIMATED > 60; GLUCOSE 83 MG/DL (70-105); POTASSIUM 3.8 MMOL/L (3.6-5.0); SODIUM 139 MMOL/L (135-145); TOTAL PROTEIN 6.9 GM/DL (6.4-8.2)
[2018-04-02] MEDS: ASPIRIN E.C. 81 MG (ECOTRIN) TAB PO SCH (08:02)
[2018-04-02] MEDS: lisINopril 5 MG (PRINIVIL) TABLET PO SCH (08:02)
--- NOTE | 2018-04-02 08:55 | Progress Note (SOAP) ---
Subjective Time Seen by Provider: 08:50 Subjective/Events-last exam CVA. Patient ready to work Objective Exam Vital Signs Date Time Temp Pulse Resp B/P (MAP) Pulse Ox O2 Delivery O2 Flow Rate FiO2 04/02/18 06:00 97.8 83 16 137/87 (104) 98 Room Air 04/01/18 21:00 Room Air 04/01/18 18:00 96.9 90 18 142/90 (107) 100 Room Air 04/01/18 09:00 Room Air I & O 04/02/18 07:00 Intake Total 950 ml Output Total 300 ml Balance 650 ml Capillary Refill : General Appearance: No Apparent Distress, Thin HEENT: Normal ENT Inspection Neck: Normal Inspection Respiratory: Lungs Clear, No Accessory Muscle Use, No Respiratory Distress Cardiovascular: Regular Rate, Rhythm Results Lab Laboratory Tests 04/02/18 05:33: White Blood Count 8.8, Red Blood Count 4.60, Hemoglobin 14.9, Hematocrit 44, Mean Corpuscular Volume 95, Mean Corpuscular Hemoglobin 32, Mean Corpuscular Hemoglobin Concent 34, Red Cell Distribution Width 12.3, Platelet Count 179, Mean Platelet Volume 12.3H, Sodium Level 139, Potassium Level 3.8, Chloride Level 106, Carbon Dioxide Level 23, Anion Gap 10, Blood Urea Nitrogen 16, Creatinine 0.81, Estimat Glomerular Filtration Rate > 60, BUN/Creatinine Ratio 20, Glucose Level 83, Calcium Level 9.3, Total Bilirubin 0.9, Aspartate Amino Transf (AST/SGOT) 24, Alanine Aminotransferase (ALT/SGPT) 26, Alkaline Phosphatase 94, Total Protein 6.9, Albumin 4.1 Assessment/Plan Assessment/Plan Assess & Plan/Chief Complaint CVA history of tobaccoism History of drinking. . 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 CVA. History of tobaccoism. History of drinking. Patient ready for PT and OT Clinical Quality Measures DVT/VTE Risk/Contraindication: Risk Factor Score Per Nursin RFS Level Per Nursing on Admit: 4+=Very High MARITZA ROE DO April 02, 2018 08:55
--- NOTE | 2018-04-02 10:15 | Physical Therapy Daily Note ---
PT Daily Note-Current Subjective Pt. states "my whole day is turned to crap" Pt. misunderstood the schedule and thought he had missed OT and is frantic that he be dressed before PT. This FOOD SERVICE DIRECTOR assures him I will assist him in dressing. Pt. also states he had several "rolled ankles in highschool and had to have them taped top run etc. States he was a pack a day smoker and he is also a jittery person who does everything quickly and isnt patient. "Cigarettes calmed me down" Pain Numeric Pain Scale: 0-No Pain Mental Status Patient Orientation: Normal For Age Attachments: Other-See Comments (Knee immoblizer left, zabrina wrap and tape left ankle) Transfers Functional [place] Measure 0=Not Assessed/NA 4=Minimal Assistance 1=Total Assistance 5=Supervision or Setup 2=Maximal Assistance 6=Modified [place] 3=Moderate Assistance 7=Complete IndependenceIRFPAI Quality Coding Scale 6 Independent with activity with or without an assistive device 5 Patient requires set up or clean up by helper. Patient completes activity by themselves 4 Supervision or touching assist (CGA). [place] provide cues , steadying assist 3 The helper provides less than half the effort to complete the activity 2 The helper provides more than half the effort to complete the activity 1 Dependent. The helper does all the effort to complete an activity 7 Patient refused to complete or attempt activity 9 The patient did not perform the activity before the current illness or injury 88 Not attempted due to Medical conditions or safety concerns Transfers (B, C, W/C) (FIM): 4 Scootin Rollin Supine to/from Sit: 6 Sit to/from Stand: 6 Bed to/from Chair: 5 Weight Bearing Right Lower Extremity: Right Full Weight Bearing Left Lower Extremity: Left Full Weight Bearing Gait Training Does the Patient Walk?: Yes Gait (FIM): 2 Distance (FIM): 6=501-65 ft (70,40) Gait Level of Assist: 3 Gait Persons Needed: 1 Gait Assistive Device: Walker Osei pt. with apparent increased tone left ankle foot inversion , rolling with gait , several attempts to realign zabrina and attempted taping. No real success. will pursue AFO, none on shelf at this time fit pt. Wheelchair Training Does the Pt Use a Wheelchair?: Yes Wheelchair (FIM): 4 Wheelchair Distance: 3=150 ft Wheelchair Level of Assist: 4 Type of Wheelchair: Manual needs some assist to keep LLE elevated and many cues to use his RUE to manage his L U&L extr Exercises Supine Ex: Bridging, Ankle pumps, Quad Set, Rolling, Glut sets, Heel Slides, Short Arc Quads, Scooting, Straight leg raise, Hip abd/add Supine Reps: 15 Seated Therapy Exercises: Sit to stand, Long arc quads, Hip flexion Seated Reps: 15 prone attempts top isolate left hamstring, trace only noted Treatments pt. very short stature, likely needs trial of KAFO , will pursue Assessment Current Status: Good Progress increased inversion tone left foot ankle PT Short Term Goals Short Term Goals Time Frame: April 10, 2018 Gait (FIM): 4 Distance (FIM): 3=150 ft Gait Distance Comment: 200' Gait Level of Assist: 4 Gait Assistive Device: Walker Osei Wheelchair (FIM): 5 Wheelchair distance (FIM): 3=150 ft Wheelchair Distance: 200' Wheelchair Level of Assist: 5 Stairs (FIM): 2 # of Steps: 4 Stairs Level of Assist: 4 PT Moving Worker Goals Fci Goals PT [facility]ci Goals Time Frame: April 30, 2018 Transfers (B,C,W/C) (FIM): 6 Sit to Lying (QC): 6 Lying-Sitting on Side/Bed(QC): 6 Sit to Stand (QC): 6 Rollin Roll Left to Right (QC): 6 Chair/Xzk-hu-Pflrj Xfer(QC): 6 Car Transfer (QC): 6 Does the Patient Walk: Yes Gait (FIM): 5 Gait distance (FIM): 3=150 ft Distance: 250' Walk 10 feet (QC): 6 Walk 10ft-Uneven Surface(QC): 5 Walk 50ft with 2 Turns (QC): 6 Walk 150 ft (QC): 6 Gait Level of Assist: 5 Gait Assistive Device: Walker Osei Does the Pt use WC or Scooter?: Yes Wheelchair (FIM): 6 Wheelchair distance (FIM): 3=150 ft Wheelchair Level of Assist: 6 Wheel 50 feet with 2 turns (QC: 6 Stairs (FIM): 5 # of Steps: 12 1 Step (curb) (QC): 5 4 Steps (QC): 5 12 Steps (QC): 5 Stairs Level Of Assist: 5 Picking up an Object (QC): 6 PT Plan Treatment/Plan Treatment Plan: Continue Plan of Care Treatment Plan: Bed Mobility, Concurrent Therapy, Education, Functional Activity Aristides, Functional Strength, Group Therapy, Gait, Safety, Therapeutic Exercise, Transfers Treatment Duration: April 30, 2018 Frequency: At least 5 of 7 days/Wk (IRF) Estimated Hrs Per Day: 1.5 hours per day Patient and/or Family Agrees t: Yes Safety Risks/Education Patient Education: Gait Training, Transfer Techniques, Correct Positioning, Disease Process, Safety Issues Teaching Recipient: Patient Teaching Methods: Demonstration, Discussion Response to Teaching: Verbalize Understanding, Return Demonstration, Reinforcement Needed Time/GCodes Time In: 900 Time Out: 1000 Total Billed Treatment Time: 60 Total Billed Treatment 1,EX25m,FA20m,GT15m G Codes Necessary: JENNIFER Goodwin FOOD SERVICE DIRECTOR April 02, 2018 10:15
--- NOTE | 2018-04-02 12:52 | Occupational Ther Daily Note ---
OT Current Status-Daily Note Subjective Pt alert, sitting in w/c. Pt agrees to therapy. No c/o pain. Mental Status/Objective Patient Orientation: Person, Place, Time, Situation Functional [place] Measure 0=Not Assessed/NA 4=Minimal Assistance 1=Total Assistance 5=Supervision or Setup 2=Maximal Assistance 6=Modified [place] 3=Moderate Assistance 7=Complete [place] ADL-Treatment Pt declined bathing at this time stating he will do it tomorrow. Pt was able to use urinal, take it to bathroom and dump in toilet. Functional [place] Measure 0=Not Assessed/NA 4=Minimal Assistance 1=Total Assistance 5=Supervision or Setup 2=Maximal Assistance 6=Modified [place] 3=Moderate Assistance 7=Complete IndependenceIRFPAI Quality Coding Scale 6 Independent with activity with or without an assistive device 5 Patient requires set up or clean up by helper. Patient completes activity by themselves 4 Supervision or touching assist (CGA). [place] provide cues , steadying assist 3 The helper provides less than half the effort to complete the activity 2 The helper provides more than half the effort to complete the activity 1 Dependent. The helper does all the effort to complete an activity 7 Patient refused to complete or attempt activity 9 The patient did not perform the activity before the current illness or injury 88 Not attempted due to Medical conditions or safety concerns Other Treatment Pt maneuvered w/c to therapy gym. Pt then transferred to therapy mat with min A toward R side. Went from sitting EOB to supine with CGA. Pt worked on APROM with L UE using muscle facilitation techniques. Trace movement noted in bicep and shldr elevation. Electrical stimulation to bicep, wrist and fingers of R UE. 3.5 strickland 7 seconds off 20 seconds on. Pt then worked on dynamic sitting balance while strengthening core muscles, mod A. After therapy, pt sitting in w /c with call light/phone in reach. All needs met in room. OT Short Term Goals Short Term Goals Time Frame: April 07, 2018 Bathing(FIM): 4 Upper Body Dressing(FIM): 4 Lower Body Dressing(FIM): 4 Toileting(FIM): 4 Shower Transfer(FIM): 4 Additional Short Term Goals: 2-Verbalize Understanding, 3-ImproveStrength/Aristides 1=Demonstrate adherence to instructed precautions during ADL tasks. 2=Patient will verbalize/demonstrate understanding of assistive devices/ modifications for ADL. 3=Patient will improve strength/tolerance for activity to enable patient to perform ADL's. OT Composing Machine Operator/Tender Goals Composing Machine Operator/Tender Goals Time Frame: April 21, 2018 Eating (FIM): 6 Eating (QC): 6 Groomin Oral Hygiene (QC): 6 Bathing(FIM): 5 Shower/Bathe Self (QC): 5 Upper Body Dressing(FIM): 6 Upper Body Dressing (QC): 6 Lower Body Dressing(FIM): 5 Lower Body Dressing (QC): 5 On/Off Footwear (QC): 5 Toileting(FIM): 6 Toileting Hygiene (QC): 6 Toilet/Commode Transfer(FIM): 6 Toilet/Commode Transfer (QC): 6 Shower Transfer(FIM): 5 Comprehension(FIM): 7 Expression (FIM): 7 Social Interaction(FIM): 7 Problem Solving(FIM): 7 Memory(FIM): 7 Additional Goals: 2-Verbalize Understanding, 3-ImproveStrength/Aristides 1=Demonstrate adherence to instructed precautions during ADL tasks. 2=Patient will verbalize/demonstrate understanding of assistive devices/ modifications for ADL. 3=Patient will improve strength/tolerance for activity to enable patient to perform ADL's. OT Education/Plan Discharge Recommendations Plan/Recommendations: Continue POC Treatment Plan/Plan of Care Patient would benefit from OT for education, treatment and training to promote independence in ADL's, mobility, safety and/or upper extremity function for ADL' s. Plan of Care: ADL Retraining, Functional Mobility, Group Exercise/Act as Ind, UE Funct Exercise/Act, UE Neuromus Re-Ed/Coord Treatment Duration: April 21, 2018 Frequency: At least 5 of 7 days/Wk (IRF) Estimated Hrs Per Day: 1.5 hours per day Agreement: Yes Rehab Potential: Good Time/GCodes Start Time: 11:00 Stop Time: 12:00 Total Time Billed (hr/min): 60 Billed Treatment Time 1 visit-NM 4 (60 min) CLARISSA GILBERT April 02, 2018 12:52
--- NOTE | 2018-04-02 14:39 | Speech Therapy Daily Note ---
Speech Daily Progress Note Subjective Date Seen by Provider: April 02, 2018 Time Seen by Provider: 10:30 The patient was seated upright in wheelchair upon entrance. The patient greeted the clinician appropriately and was agreeable to participation in the speech treatment session. To note, the patient demonstrated tearfulness upon several occasions on this date. Per patient, "it's just so hard to realize what's going on." The patient displays excellent motivation for continued improvement. Objective Oral Motor Exercises: The patient displayed excellent accuracy with oral motor exercises following one demonstration of the exercise. Ten repetitions of each exercise were completed by the patient. The patient was encouraged to practice the exercises throughout his down time (ten repetitions, three to five times per day). To note, the patient is receiving some return of retraction of the right labial side. Assessment Assessment Current Status: Good Progress Treatment Plan Continue Plan of Care Communication Comprehension: 7 Expression: 5 Social Cognition Social Interaction: 7 Problem Solvin Memory: 7 Speech Short Term Goals Short Term Goals Short Term Goals 1. The patient will demonstrate 90% accuracy with oral motor exercises and intelligibility strategies with mild clinician cueing. Time Frame-STG: Ten Days Speech Wine Specialist Goals Fpc Goals 1. The patient will demonstrate improved expression for increased function and safety with ADL's in the least restrictive setting. Time Frame: Two Weeks Comprehension: 7 Expression: 7 Social Interaction: 7 Problem Solvin Memory: 7 Speech-Plan Treatment Plan Speech Therapy Treatment Plan: Continue Plan of Care Continue skilled speech pathology to target functional return of oral musculature. Treatment Duration: April 15, 2018 Frequency: 3 times per week Estimated Hrs Per Day: .5 hour per day Rehab Potential: Good Safety Risks/Education Teaching Recipient: Patient Teaching Methods: Demonstration, Handout, Discussion Response to Teaching: Verbalize Understanding, Return Demonstration Education Topics Provided: Oral Motor Exercises Time Speech Therapy Time In: 10:30 Speech Therapy Time Out: 11:00 Total Billed Time: 30 Billed Treatment Time 1GEN [facility] ST April 02, 2018 14:39
--- NOTE | 2018-04-02 14:56 | Individualized Plan of Care ---
Individualized Plan of Care Rehab Nursing IPOC Order Admission Date March 31, 2018 at 14:09 Current Orders Orders Request Ot Evaluate & Treat (03/31/18 14:28) Edu Tobacco/Smoking Cessation .prn (03/31/18 14:29) Follow-Up Appointment (03/31/18 14:31) Admission Order(Inpt,Obs,Sdc) (03/31/18 14:51) Vital Signs: Routine (Order) 08,16,00 (03/31/18 14:51) Sequential Compression Device 08,20 (03/31/18 14:51) Acetylene Torch Operator-Inpt Rehab Con (03/31/18 14:51) Rehab Nursing Orders-Ipoc (03/31/18 14:51) Physical Therapy Rehab Orders (03/31/18 14:51) Speech Therapy Rehab Orders (03/31/18 14:51) General/Regular (03/31/18 Dinner) Turn And Reposition Q2HR (03/31/18 14:51) Intake & Output 06,14,22 (03/31/18 14:51) Weekly Weight (Lbs) WEEK (03/31/18 14:51) Consult Physician (03/31/18 14:55) Aspirin Enteric Coated Tablet (Ecotrin T (04/01/18 09:00) Atorvastatin Tablet (Lipitor Tablet) (03/31/18 21:00) Rivaroxaban Tablet (Xarelto Tablet) (03/31/18 17:00) Lisinopril Tablet (Zestril Tablet) (04/01/18 09:00) Atorvastatin Tablet (Lipitor) (03/31/18 21:00) Lisinopril Tablet (Zestril Tablet) (04/01/18 09:00) Pharmacy Communication (Pharmacy Communi (03/31/18 15:15) Atorvastatin Tablet (Lipitor Tablet) (03/31/18 21:00) Patient Visit (03/31/18 ) Pt Eval Moderate Complexity (03/31/18 ) Gait Training, Ea 15 Min (03/31/18 ) Ambulate TID (03/31/18 16:09) Sequential Compression Device 08,20 (03/31/18 16:09) Dvt/Vte Risk - Notifiy Physici 08 (03/31/18 16:09) Patient Visit (04/01/18 ) Speech Sound Lang Comp (04/01/18 ) Patient Visit (04/01/18 ) Gait Training, Ea 15 Min (04/01/18 ) Wheelchair Mgmt/Propulsn 15min (04/01/18 ) Exercise Therap, Ea 15 Min (04/01/18 ) Functional Activities, Ea 15 (04/01/18 ) Comprehensive Metabolic Panel (04/02/18 06:00) Cbc No Diff (04/02/18 06:00) Patient Visit (04/02/18 ) Treat. Speech/Lang/Voice (04/02/18 ) Rehab Nursing Orders: Disease Management & Educaiton, Fluid/Electrolyte/ Nutrition Mgmt, Infection Prevention, Medication Management & Education, Management of Skin Intergrity, Pain Management Other Nursing Orders: Monitor for urinary retention and constipation PT IPOC Problem List: Activity Tolerance, Functional Strength, Safety, Balance, Gait, Transfer Treatment Plan: Continue Plan of Care Bed Mobility, Concurrent Therapy, Education, Functional Activity Aristides, Functional Strength, Group Therapy, Gait, Safety, Therapeutic Exercise, Transfers Treatment Duration: April 30, 2018 Frequency: At least 5 of 7 days/Wk (IRF) Estimated Hrs Per Day: 1.5 hours per day OT IPOC Problems: Decreased UE Strength, Dependent Transfers, Impaired Funct Balance, Impaired Self-Care Skills OT Treatment, Training and Edu: Yes Plan of Care: ADL Retraining, Functional Mobility, Group Exercise/Act as Ind, UE Funct Exercise/Act, UE Neuromus Re-Ed/Coord Treatment Duration: April 21, 2018 Frequency: At least 5 of 7 days/Wk (IRF) Estimated Hrs Per Day: 1.[address] IPOC Speech Therapy Treatment Plan: Continue Plan of Care Treatment Duration: April 15, 2018 Frequency: 3 times per week Estimated Hrs Per Day: .5 hour per day Acetylene Torch Operator/Case Mgmt Acetylene Torch Operator/Case Managemen: Discharge Planning, Patient/Family Counseling Dietitian/Party Plan Sales Host/Hostess Dietitian/Party Plan Sales Host/Hostess to monitor nutritional status and make changes and/or recommendations as needed and work with speech pathology on dietary upgrades as the occur. 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
--- NOTE | 2018-04-02 15:18 | Therapy Group Daily Note ---
Therapy Daily Group Note Patient Education Topic Energy Cons Exercises LE Seated Exercise, UE Exercise Other/Notes Pt transported self via w/c to OT/PT group. Group consisted of introduction ( name, place living, rainy day activity), socialization, UE/LE seated exercises, ARU description/expectations and energy conservation education. Pt was able to introduce self and actively listened to peers introduction. Pt completed R UE/ LE's by self then assist for L UE/LE exercises. Pt listened attentively to education and was able to voice understanding of energy conservation. After therapy, pt lying in bed with call light/phone in reach. All needs met in room. Start Time: 13:00 Stop Time: 14:15 Total Billed Treatment Time: 75 Total Billed Treatment 1-GRP CLARISSA GILBERT April 02, 2018 15:18
[2018-04-02] MEDS: RIVAROXABAN 20 MG TABLET (XARELTO) PO SCH (18:01)
[2018-04-02 18:12] VITALS: BP 145/75
[2018-04-02] MEDS: ATORVASTATIN 80 MG (LIPITOR) TABLET PO SCH (20:38)
[2018-04-03 06:00] VITALS: BP 157/89
[2018-04-03] MEDS: lisINopril 5 MG (PRINIVIL) TABLET PO SCH (08:42)
[2018-04-03] MEDS: ASPIRIN E.C. 81 MG (ECOTRIN) TAB PO SCH (08:42)
--- NOTE | 2018-04-03 08:46 | Progress Note (SOAP) ---
Subjective Time Seen by Provider: 08:45 Subjective/Events-last exam Patient working hard. CVA. Objective Exam Vital Signs Date Time Temp Pulse Resp B/P (MAP) Pulse Ox O2 Delivery O2 Flow Rate FiO2 04/03/18 06:00 98.3 83 18 157/89 (111) 98 Room Air 04/02/18 21:00 Room Air 04/02/18 18:12 97.6 84 16 145/75 (98) 98 Room Air 04/02/18 09:00 Room Air I & O 04/03/18 07:00 Intake Total 1310 ml Output Total 650 ml Balance 660 ml Capillary Refill : General Appearance: No Apparent Distress, WD/WN Assessment/Plan Assessment/Plan Assess & Plan/Chief Complaint CVA history of tobaccoism History of drinking. . 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 CVA. History of tobaccoism. History of drinking. Patient ready for PT and OT. . 04/03/18. CVA. History of tobaccoism. Patient working to get better Clinical Quality Measures DVT/VTE Risk/Contraindication: Risk Factor Score Per Nursin RFS Level Per Nursing on Admit: 4+=Very High MARITZA ROE DO April 03, 2018 08:46
--- NOTE | 2018-04-03 08:59 | Physical Therapy Daily Note ---
PT Daily Note-Current Subjective Pt. agrees to Rx. States he slept well. Pain Numeric Pain Scale: 0-No Pain Mental Status Patient Orientation: Normal For Age Transfers Functional [place] Measure 0=Not Assessed/NA 4=Minimal Assistance 1=Total Assistance 5=Supervision or Setup 2=Maximal Assistance 6=Modified [place] 3=Moderate Assistance 7=Complete IndependenceIRFPAI Quality Coding Scale 6 Independent with activity with or without an assistive device 5 Patient requires set up or clean up by helper. Patient completes activity by themselves 4 Supervision or touching assist (CGA). [facility] provide cues , steadying assist 3 The helper provides less than half the effort to complete the activity 2 The helper provides more than half the effort to complete the activity 1 Dependent. The helper does all the effort to complete an activity 7 Patient refused to complete or attempt activity 9 The patient did not perform the activity before the current illness or injury 88 Not attempted due to Medical conditions or safety concerns Transfers (B, C, W/C) (FIM): 5 Scootin Rollin Supine to/from Sit: 6 Sit to/from Stand: 5 Bed to/from Chair: 5 emphasis on TRFs from bed to w/c and much practice moving w/c to right side after seated on mat in gym, reaching to brake and unbrake w/c , challenges trunk balance and required CGA Weight Bearing Right Lower Extremity: Right Full Weight Bearing Left Lower Extremity: Left Full Weight Bearing Gait Training Does the Patient Walk?: Yes Gait (FIM): 4 Distance (FIM): 3=150 ft (x3) Gait Level of Assist: 4 Gait Persons Needed: 1 Gait Assistive Device: Walker Osei pt. instructed to broaden SILKE so as to decrease his chances of ankle inversion left. Wheelchair Training Does the Pt Use a Wheelchair?: Yes Wheelchair (FIM): 6 Wheelchair Distance: 3=150 ft Wheelchair Level of Assist: 6 Type of Wheelchair: Manual Treatments SPTs bed to w/c and gym table repeated for safety and indep as well as gait and wt bearing challenges, seated trunk deviation challenges, and increased w/c indep Assessment Current Status: Good Progress pursuing further AFO possibilities, no active DF PT Short Term Goals Short Term Goals Time Frame: April 10, 2018 Gait (FIM): 4 Distance (FIM): 3=150 ft Gait Distance Comment: 200' Gait Level of Assist: 4 Gait Assistive Device: Walker Osei Wheelchair (FIM): 5 Wheelchair distance (FIM): 3=150 ft Wheelchair Distance: 200' Wheelchair Level of Assist: 5 Stairs (FIM): 2 # of Steps: 4 Stairs Level of Assist: 4 PT Cotton Presser Goals Skilled Nursing Goals PT Cotton Presser Goals Time Frame: April 30, 2018 Transfers (B,C,W/C) (FIM): 6 Sit to Lying (QC): 6 Lying-Sitting on Side/Bed(QC): 6 Sit to Stand (QC): 6 Rollin Roll Left to Right (QC): 6 Chair/Jyt-ec-Ihwma Xfer(QC): 6 Car Transfer (QC): 6 Does the Patient Walk: Yes Gait (FIM): 5 Gait distance (FIM): 3=150 ft Distance: 250' Walk 10 feet (QC): 6 Walk 10ft-Uneven Surface(QC): 5 Walk 50ft with 2 Turns (QC): 6 Walk 150 ft (QC): 6 Gait Level of Assist: 5 Gait Assistive Device: Walker Osei Does the Pt use WC or Scooter?: Yes Wheelchair (FIM): 6 Wheelchair distance (FIM): 3=150 ft Wheelchair Level of Assist: 6 Wheel 50 feet with 2 turns (QC: 6 Stairs (FIM): 5 # of Steps: 12 1 Step (curb) (QC): 5 4 Steps (QC): 5 12 Steps (QC): 5 Stairs Level Of Assist: 5 Picking up an Object (QC): 6 PT Plan Treatment/Plan Treatment Plan: Continue Plan of Care Treatment Plan: Bed Mobility, Concurrent Therapy, Education, Functional Activity Aristides, Functional Strength, Group Therapy, Gait, Safety, Therapeutic Exercise, Transfers Treatment Duration: April 30, 2018 Frequency: At least 5 of 7 days/Wk (IRF) Estimated Hrs Per Day: 1.5 hours per day Patient and/or Family Agrees t: Yes Safety Risks/Education Patient Education: Transfer Techniques, Correct Positioning, W/C Management, Disease Process, Safety Issues Teaching Recipient: Patient Teaching Methods: Demonstration, Discussion Response to Teaching: Verbalize Understanding, Return Demonstration, Reinforcement Needed Time/GCodes Time In: 800 Time Out: 900 Total Billed Treatment Time: 60 Total Billed Treatment 1,FA30m,GT30m G Codes Necessary: JENNIFER Goodwin DIRECTOR OF FOOD AND NUTRITION April 03, 2018 08:59
--- NOTE | 2018-04-03 11:30 | Occupational Ther Daily Note ---
OT Current Status-Daily Note Subjective Pt sitting in w/c, agrees to treatment. Mental Status/Objective Functional [place] Measure 0=Not Assessed/NA 4=Minimal Assistance 1=Total Assistance 5=Supervision or Setup 2=Maximal Assistance 6=Modified [place] 3=Moderate Assistance 7=Complete [place] ADL-Treatment Pt requests shower today. Transfer w/c <-> shower bench with CGA for safety. Pt doffed shirt, shoes, and socks with SBA. Pt required assist to doff shorts and underwear over hips, then pt able to doff the rest of the way. Pt requires assist to wash/dry right UE and buttocks. Uses long handled sponge to wash lower legs and feet to increase independence and safety. Don pullover shirt with SBA and increased time. Cues required for UE dressing technique. Pt able to thread bilateral LE into underwear and shorts. Pt then stood with minimal assistance, but requires assist to pull underwear and shorts up over hips. Pt donned socks and shoes with SBA and increased time, cues for technique. Pt has elastic shoe laces, so does not need to tie them. Grooming tasks completed seated at sink. Pt shaved, combed hair, and brushed teeth with modified independence. Functional [place] Measure 0=Not Assessed/NA 4=Minimal Assistance 1=Total Assistance 5=Supervision or Setup 2=Maximal Assistance 6=Modified [place] 3=Moderate Assistance 7=Complete IndependenceIRFPAI Quality Coding Scale 6 Independent with activity with or without an assistive device 5 Patient requires set up or clean up by helper. Patient completes activity by themselves 4 Supervision or touching assist (CGA). [place] provide cues , steadying assist 3 The helper provides less than half the effort to complete the activity 2 The helper provides more than half the effort to complete the activity 1 Dependent. The helper does all the effort to complete an activity 7 Patient refused to complete or attempt activity 9 The patient did not perform the activity before the current illness or injury 88 Not attempted due to Medical conditions or safety concerns Grooming (FIM): 6 Oral Hygiene (QC): 6 Bathing (FIM): 4 Shower/Bathe Self (QC): 3 Upper Body (FIM): 5 Upper Body Dressing (QC): 4 Lower Body Dressing (FIM): 3 Lower Body Dressing (QC): 3 On/Off Footwear (QC): 4 Shower Transfer(FIM): 4 Other Treatment Pt transferred w/c to EOB with CGA. Pt completed activity to promote increased trunk control and sitting balance while seated EOB. Pt demonstrates improvement in sitting balance from previous sessions. Pt also completed weight bearing through left UE while seated EOB. Pt requires assist to maintain positioning during activity. Pt states he has been completing self ROM and is able to demonstrate to therapist. Pt sit to supine with SBA. Pt resting in bed with needs met after session. Education OT Patient Education: Modified ADL techniques Teaching Recipient: Patient Teaching Methods: Discussion Response to Teaching: Verbalize Understanding OT Short Term Goals Short Term Goals Time Frame: April 07, 2018 Bathing(FIM): 4 Upper Body Dressing(FIM): 4 Lower Body Dressing(FIM): 4 Toileting(FIM): 4 Shower Transfer(FIM): 4 Additional Short Term Goals: 2-Verbalize Understanding, 3-ImproveStrength/Aristides 1=Demonstrate adherence to instructed precautions during ADL tasks. 2=Patient will verbalize/demonstrate understanding of assistive devices/ modifications for ADL. 3=Patient will improve strength/tolerance for activity to enable patient to perform ADL's. OT Arabic Professor Goals Arabic Professor Goals Time Frame: April 21, 2018 Eating (FIM): 6 Eating (QC): 6 Groomin Oral Hygiene (QC): 6 Bathing(FIM): 5 Shower/Bathe Self (QC): 5 Upper Body Dressing(FIM): 6 Upper Body Dressing (QC): 6 Lower Body Dressing(FIM): 5 Lower Body Dressing (QC): 5 On/Off Footwear (QC): 5 Toileting(FIM): 6 Toileting Hygiene (QC): 6 Toilet/Commode Transfer(FIM): 6 Toilet/Commode Transfer (QC): 6 Shower Transfer(FIM): 5 Comprehension(FIM): 7 Expression (FIM): 7 Social Interaction(FIM): 7 Problem Solving(FIM): 7 Memory(FIM): 7 Additional Goals: 2-Verbalize Understanding, 3-ImproveStrength/Aristides 1=Demonstrate adherence to instructed precautions during ADL tasks. 2=Patient will verbalize/demonstrate understanding of assistive devices/ modifications for ADL. 3=Patient will improve strength/tolerance for activity to enable patient to perform ADL's. OT Education/Plan Discharge Recommendations Plan/Recommendations: Continue POC Treatment Plan/Plan of Care Patient would benefit from OT for education, treatment and training to promote independence in ADL's, mobility, safety and/or upper extremity function for ADL' s. Plan of Care: ADL Retraining, Functional Mobility, Group Exercise/Act as Ind, UE Funct Exercise/Act, UE Neuromus Re-Ed/Coord Treatment Duration: April 21, 2018 Frequency: At least 5 of 7 days/Wk (IRF) Estimated Hrs Per Day: 1.5 hours per day Agreement: Yes Rehab Potential: Good Time/GCodes Start Time: 09:00 Stop Time: 10:00 Total Time Billed (hr/min): 60 Billed Treatment Time 1 visit, ADLx3(45minutes), FA(15minutes) GUSTAVO IZAGUIRRE OT April 03, 2018 11:30
--- NOTE | 2018-04-03 13:25 | Speech Therapy Daily Note ---
Speech Daily Progress Note Subjective Date Seen by Provider: April 03, 2018 Time Seen by Provider: 10:00 The patient was seated upright in his bed upon entrance. The patient greeted the clinician appropriately and was agreeable to participation in the speech treatment session. Objective Oral Motor Exercises: The patient displayed excellent accuracy with oral motor exercises following one demonstration of the exercise. Ten repetitions of each exercise were completed by the patient, as well as, five independently (without instruction). The patient was encouraged to practice the exercises throughout his down time (ten repetitions, three to five times per day). The patient stated he has been practicing his exercises at night, independently. Intelligibility Strategies: Intelligibility strategies were discussed on this date. The patient displays excellent awareness with intelligibility strategies and utilizes the strategies independently. Assessment Assessment Current Status: Excellent Progress Treatment Plan Discontinue ST, Goals Met Communication Comprehension: 7 Expression: 7 Social Cognition Social Interaction: 7 Problem Solvin Memory: 7 Speech Short Term Goals Short Term Goals Short Term Goals 1. The patient will demonstrate 90% accuracy with oral motor exercises and intelligibility strategies with mild clinician cueing. MET Time Frame-STG: Ten Days Speech Alf Goals [place] Goals 1. The patient will demonstrate improved expression for increased function and safety with ADL's in the least restrictive setting. Time Frame: Two Weeks Comprehension: 7 (MET) Expression: 7 (MET) Social Interaction: 7 (MET) Problem Solvin (MET) Memory: 7 (MET) Speech-Plan Treatment Plan Speech Therapy Treatment Plan: Discontinue ST, Goals Met The patient has met goals placed by speech language pathology. Treatment Duration: April 15, 2018 Frequency: 3 times per week Estimated Hrs Per Day: .5 hour per day Rehab Potential: Good Safety Risks/Education Teaching Recipient: Patient Teaching Methods: Demonstration, Handout, Discussion Response to Teaching: Verbalize Understanding Education Topics Provided: Intelligibility Strategies, Oral Motor Exercises Time Speech Therapy Time In: 10:00 Speech Therapy Time Out: 10:30 Total Billed Time: 30 Billed Treatment Time 1GEN ELIZABETH ST April 03, 2018 13:25
--- NOTE | 2018-04-03 13:32 | Therapy Team Discharge Summary ---
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 Skilled speech pathology focused on oral motor exercises, as well as, intelligibility strategies. The patient is able to demonstrate all exercises independently and with high accuracy. The patient has met all the goals placed by speech pathology and will be discharged from skilled speech pathology at this time. No additional speech pathology services are warranted. PT Steam Cleaner Goals Fpc Goals PT Steam Cleaner Goals Time Frame: April 30, 2018 Transfers (B,C,W/C) (FIM): 6 Roll Left to Right (QC): 6 Sit to Lying (QC): 6 Lying-Sitting on Side/Bed(QC): 6 Sit to Stand (QC): 6 Chair/Mgh-xk-Ddhlj Xfer(QC): 6 Car Transfer (QC): 6 Does the Patient Walk: Yes Gait (FIM): 5 Gait distance (FIM): 3=150 ft Distance: 250' Walk 10 feet (QC): 6 Walk 10ft-Uneven Surface(QC): 5 Walk 50ft with 2 Turns (QC): 6 Walk 150 ft (QC): 6 Gait Level of Assist: 5 Gait Assistive Device: Walker Osei Does the Pt use WC or Scooter?: Yes Wheelchair (FIM): 6 Wheelchair distance (FIM): 3=150 ft Wheelchair Level of Assist: 6 Wheel 50 feet with 2 turns (QC: 6 Stairs (FIM): 5 # of Steps: 12 1 Step (curb) (QC): 5 4 Steps (QC): 5 12 Steps (QC): 5 Stairs Level Of Assist: 5 Picking up an Object (QC): 6 OT Fpc Goals Fpc Goals Time Frame: April 21, 2018 Eating (FIM): 6 Eating (QC): 6 Oral Hygiene (QC): 6 Grooming(FIM): 6 Bathing(FIM): 5 Shower/Bathe Self (QC): 5 Upper Body Dressing(FIM): 6 Upper Body Dressing (QC): 6 Lower Body Dressing(FIM): 5 Lower Body Dressing (QC): 5 On/Off Footwear (QC): 5 Toileting(FIM): 6 Toileting Hygiene (QC): 6 Toilet/Commode Transfer(FIM): 6 Toilet/Commode Transfer (QC): 6 Shower Transfer(FIM): 5 Comprehension(FIM): 7 (MET) Expression (FIM): 7 (MET) Social Interaction(FIM): 7 (MET) Problem Solving(FIM): 7 (MET) Memory(FIM): 7 (MET) Additional Goals: 2-Verbalize Understanding, 3-ImproveStrength/Aristides 1=Demonstrate adherence to instructed precautions during ADL tasks. 2=Patient will verbalize/demonstrate understanding of assistive devices/ modifications for ADL. 3=Patient will improve strength/tolerance for activity to enable patient to perform ADL's. Speech Steam Cleaner Goals Fpc Goals 1. The patient will demonstrate improved expression for increased function and safety with ADL's in the least restrictive setting. Time Frame: Two Weeks Comprehension: 7 (MET) Expression: 7 (MET) Social Interaction: 7 (MET) Problem Solvin (MET) Memory: 7 (MET) ALEX RAMIRES April 03, 2018 13:32
--- NOTE | 2018-04-03 14:46 | Therapy Group Daily Note ---
Therapy Daily Group Note Patient Education Topic Other List Below (TRF techniques, rehab process) Exercises UE Exercise, Other (neck and shoulder ) Other/Notes Pt. participated in group PT OT session, Pt. came/ went mod in w/c . Pts introduced selves and were social. TRF techniques and safety was demonstrated . Seated ther EX as for shoulder and neck was lead by therapists. Pt. to room after with call lopez at hand Start Time: 13:00 Stop Time: 14:00 Total Billed Treatment Time: 60 Total Billed Treatment 1,GRP JENNIFER ASH ELECTRONIC TECH April 03, 2018 14:46
[2018-04-03] MEDS: RIVAROXABAN 20 MG TABLET (XARELTO) PO SCH (16:17)
[2018-04-03 17:25] VITALS: BP 145/68
[2018-04-03] MEDS: ATORVASTATIN 80 MG (LIPITOR) TABLET PO SCH (20:02)
[2018-04-04 06:00] VITALS: BP 125/73
[2018-04-04] MEDS: ASPIRIN E.C. 81 MG (ECOTRIN) TAB PO SCH (07:58)
[2018-04-04] MEDS: lisINopril 5 MG (PRINIVIL) TABLET PO SCH (07:58)
--- NOTE | 2018-04-04 12:22 | Physical Therapy Daily Note ---
PT Daily Note-Current Subjective States that he is doing ok. Transfers Functional [place] Measure 0=Not Assessed/NA 4=Minimal Assistance 1=Total Assistance 5=Supervision or Setup 2=Maximal Assistance 6=Modified [place] 3=Moderate Assistance 7=Complete IndependenceIRFPAI Quality Coding Scale 6 Independent with activity with or without an assistive device 5 Patient requires set up or clean up by helper. Patient completes activity by themselves 4 Supervision or touching assist (CGA). [place] provide cues , steadying assist 3 The helper provides less than half the effort to complete the activity 2 The helper provides more than half the effort to complete the activity 1 Dependent. The helper does all the effort to complete an activity 7 Patient refused to complete or attempt activity 9 The patient did not perform the activity before the current illness or injury 88 Not attempted due to Medical conditions or safety concerns Scootin Supine to/from Sit: 5 Sit to/from Stand: 5 Weight Bearing Right Lower Extremity: Right Full Weight Bearing Left Lower Extremity: Left Full Weight Bearing Gait Training Distance (FIM): 5=784-74 ft Distance: 100' x 2 Gait Level of Assist: 5 Gait Persons Needed: 1 Gait Assistive Device: Walker Osei Exercises Seated Therapy Exercises: LE Protocol Seated Reps: 15 Assessment Current Status: Excellent Progress Patient had one episode of LOB that required min assist to keep from falling. PT Short Term Goals Short Term Goals Time Frame: April 10, 2018 Gait (FIM): 4 Distance (FIM): 3=150 ft Gait Distance Comment: 200' Gait Level of Assist: 4 Gait Assistive Device: Walker Osei Wheelchair (FIM): 5 Wheelchair distance (FIM): 3=150 ft Wheelchair Distance: 200' Wheelchair Level of Assist: 5 Stairs (FIM): 2 # of Steps: 4 Stairs Level of Assist: 4 PT Group Home Goals Button Riveter Goals PT Group Home Goals Time Frame: April 30, 2018 Transfers (B,C,W/C) (FIM): 6 Sit to Lying (QC): 6 Lying-Sitting on Side/Bed(QC): 6 Sit to Stand (QC): 6 Rollin Roll Left to Right (QC): 6 Chair/Dgj-dw-Zalbg Xfer(QC): 6 Car Transfer (QC): 6 Does the Patient Walk: Yes Gait (FIM): 5 Gait distance (FIM): 3=150 ft Distance: 250' Walk 10 feet (QC): 6 Walk 10ft-Uneven Surface(QC): 5 Walk 50ft with 2 Turns (QC): 6 Walk 150 ft (QC): 6 Gait Level of Assist: 5 Gait Assistive Device: Walker Osei Does the Pt use WC or Scooter?: Yes Wheelchair (FIM): 6 Wheelchair distance (FIM): 3=150 ft Wheelchair Level of Assist: 6 Wheel 50 feet with 2 turns (QC: 6 Stairs (FIM): 5 # of Steps: 12 1 Step (curb) (QC): 5 4 Steps (QC): 5 12 Steps (QC): 5 Stairs Level Of Assist: 5 Picking up an Object (QC): 6 PT Plan Treatment/Plan Treatment Plan: Continue Plan of Care Treatment Plan: Bed Mobility, Concurrent Therapy, Education, Functional Activity Aristides, Functional Strength, Group Therapy, Gait, Safety, Therapeutic Exercise, Transfers Treatment Duration: April 30, 2018 Frequency: At least 5 of 7 days/Wk (IRF) Estimated Hrs Per Day: 1.5 hours per day Patient and/or Family Agrees t: Yes Time/GCodes Time In: 1205 Time Out: 1220 Total Billed Treatment Time: 15 Total Billed Treatment 1, GT x 15' GRISELDA VILLARREAL PT April 04, 2018 12:22
[2018-04-04] MEDS: RIVAROXABAN 20 MG TABLET (XARELTO) PO SCH (16:57)
[2018-04-04 18:00] VITALS: BP 127/75
[2018-04-04] MEDS: ATORVASTATIN 80 MG (LIPITOR) TABLET PO SCH (20:04)
[2018-04-05 05:13] VITALS: BP 150/75
[2018-04-05] MEDS: ASPIRIN E.C. 81 MG (ECOTRIN) TAB PO SCH (08:11)
[2018-04-05] MEDS: lisINopril 5 MG (PRINIVIL) TABLET PO SCH (08:11)
[2018-04-05] MEDS: RIVAROXABAN 20 MG TABLET (XARELTO) PO SCH (16:32)
[2018-04-05 18:31] VITALS: BP 146/78
[2018-04-05] MEDS: ATORVASTATIN 80 MG (LIPITOR) TABLET PO SCH (20:30)
[2018-04-06 04:20] VITALS: BP 156/76
[2018-04-06] MEDS: lisINopril 5 MG (PRINIVIL) TABLET PO SCH (08:06)
[2018-04-06] MEDS: ASPIRIN E.C. 81 MG (ECOTRIN) TAB PO SCH (08:06)
--- NOTE | 2018-04-06 08:45 | Progress Note (SOAP) ---
Subjective Time Seen by Provider: 08:45 Subjective/Events-last exam Patient had CVA. Patient improving. Patient moving left leg better Objective Exam Vital Signs Date Time Temp Pulse Resp B/P (MAP) Pulse Ox O2 Delivery O2 Flow Rate FiO2 04/06/18 04:20 97.8 85 18 156/76 (102) 95 Room Air 04/05/18 20:13 Room Air 04/05/18 18:31 96.0 88 18 146/78 (100) 95 Room Air 04/05/18 09:00 Room Air I & O 04/06/18 07:00 Intake Total 1380 ml Output Total 1575 ml Balance -195 ml Capillary Refill : General Appearance: No Apparent Distress, Thin HEENT: Normal ENT Inspection, Other (Droop start Cytomel) Neck: Full Range of Motion, Normal Inspection Respiratory: No Accessory Muscle Use, No Respiratory Distress Assessment/Plan Assessment/Plan Assess & Plan/Chief Complaint CVA history of tobaccoism History of drinking. . 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 CVA. History of tobaccoism. History of drinking. Patient ready for PT and OT. . 04/03/18. CVA. History of tobaccoism. Patient working to get better. . 04/06/18. Patient improving. Patient moving left leg better. Patient swing with left Clinical Quality Measures DVT/VTE Risk/Contraindication: Risk Factor Score Per Nursin RFS Level Per Nursing on Admit: 4+=Very High MARITZA ROE DO April 06, 2018 08:44
--- NOTE | 2018-04-06 08:58 | Physical Therapy Daily Note ---
PT Daily Note-Current Subjective Patient in bed pre tx, agrees to PT, no complaints of pain. Appearance Patient in bed post tx, has nurse call, phone, tray, all needs met, bed alarm on. Mental Status Patient Orientation: Person, Place, Situation Transfers Functional [place] Measure 0=Not Assessed/NA 4=Minimal Assistance 1=Total Assistance 5=Supervision or Setup 2=Maximal Assistance 6=Modified [place] 3=Moderate Assistance 7=Complete IndependenceIRFPAI Quality Coding Scale 6 Independent with activity with or without an assistive device 5 Patient requires set up or clean up by helper. Patient completes activity by themselves 4 Supervision or touching assist (CGA). [place] provide cues , steadying assist 3 The helper provides less than half the effort to complete the activity 2 The helper provides more than half the effort to complete the activity 1 Dependent. The helper does all the effort to complete an activity 7 Patient refused to complete or attempt activity 9 The patient did not perform the activity before the current illness or injury 88 Not attempted due to Medical conditions or safety concerns Transfers (B, C, W/C) (FIM): 4 Scootin Rollin Supine to/from Sit: 5 Sit to/from Stand: 4 Bed to/from Chair: 4 CGA for transfers, patient often needs cues for safety and hand placement and to turn completely before sitting. Weight Bearing Right Lower Extremity: Right Full Weight Bearing Left Lower Extremity: Left Full Weight Bearing Gait Training Gait (FIM): 2 Distance: 100', 50'x2 Gait Persons Needed: 1 Gait Assistive Device: Walker Osei Patient ambulated without the knee immobilizer, his left knee does flex with bearing weight but he is able to support himself while stepping, but this decreases with fatigue. Left ankle is unstable and tends to supinate a little, corrected with zabrina wrap, but needs an AFO Wheelchair Training Wheelchair (FIM): 2 Distance: 100' Type of Wheelchair: Manual Exercises Standin way Ex=Flex, Abd, Ext, Marching Standing Reps: 20 LAQ left side for 5 min, SLS left side x6 for just a few seconds each time Treatments bed mobility, transfers, ambulation, wheelchair mobility, functional strengthening Assessment Current Status: Fair Progress improving ambulation PT Short Term Goals Short Term Goals Time Frame: April 10, 2018 Gait (FIM): 4 Distance (FIM): 3=150 ft Gait Distance Comment: 200' Gait Level of Assist: 4 Gait Assistive Device: Walker Osei Wheelchair (FIM): 5 Wheelchair distance (FIM): 3=150 ft Wheelchair Distance: 200' Wheelchair Level of Assist: 5 Stairs (FIM): 2 # of Steps: 4 Stairs Level of Assist: 4 PT Halfway Goals Halfway Goals PT Drafter Commercial Goals Time Frame: April 30, 2018 Transfers (B,C,W/C) (FIM): 6 Sit to Lying (QC): 6 Lying-Sitting on Side/Bed(QC): 6 Sit to Stand (QC): 6 Rollin Roll Left to Right (QC): 6 Chair/Hup-fl-Srgpl Xfer(QC): 6 Car Transfer (QC): 6 Does the Patient Walk: Yes Gait (FIM): 5 Gait distance (FIM): 3=150 ft Distance: 250' Walk 10 feet (QC): 6 Walk 10ft-Uneven Surface(QC): 5 Walk 50ft with 2 Turns (QC): 6 Walk 150 ft (QC): 6 Gait Level of Assist: 5 Gait Assistive Device: Walker Osei Does the Pt use WC or Scooter?: Yes Wheelchair (FIM): 6 Wheelchair distance (FIM): 3=150 ft Wheelchair Level of Assist: 6 Wheel 50 feet with 2 turns (QC: 6 Stairs (FIM): 5 # of Steps: 12 1 Step (curb) (QC): 5 4 Steps (QC): 5 12 Steps (QC): 5 Stairs Level Of Assist: 5 Picking up an Object (QC): 6 PT Plan Problem List Problem List: Activity Tolerance, Functional Strength, Safety, Balance, Gait, Transfer, Bed Mobility, ROM Treatment/Plan Treatment Plan: Continue Plan of Care Treatment Plan: Bed Mobility, Concurrent Therapy, Education, Functional Activity Aristides, Functional Strength, Group Therapy, Gait, Safety, Therapeutic Exercise, Transfers Treatment Duration: April 30, 2018 Frequency: At least 5 of 7 days/Wk (IRF) Estimated Hrs Per Day: 1.5 hours per day Patient and/or Family Agrees t: Yes Safety Risks/Education Patient Education: Gait Training, Transfer Techniques, Correct Positioning, W/ C Management, Safety Issues Teaching Recipient: Patient Teaching Methods: Demonstration, Discussion Response to Teaching: Reinforcement Needed Time/GCodes Time In: 0800 Time Out: 0900 Total Billed Treatment Time: 60 Total Billed Treatment 1 visit GT 30' FA 15' EX 15' MARY KAY RYDER PT April 06, 2018 08:58
--- NOTE | 2018-04-06 11:55 | Occupational Ther Daily Note ---
OT Current Status-Daily Note Subjective Pt alert, lying in bed. Pt agreed to therapy. No c/o pain. Pt asking when he could go home. Mental Status/Objective Patient Orientation: Person, Place, Time, Situation Functional [place] Measure 0=Not Assessed/NA 4=Minimal Assistance 1=Total Assistance 5=Supervision or Setup 2=Maximal Assistance 6=Modified [place] 3=Moderate Assistance 7=Complete [place] ADL-Treatment Functional [place] Measure 0=Not Assessed/NA 4=Minimal Assistance 1=Total Assistance 5=Supervision or Setup 2=Maximal Assistance 6=Modified [place] 3=Moderate Assistance 7=Complete IndependenceIRFPAI Quality Coding Scale 6 Independent with activity with or without an assistive device 5 Patient requires set up or clean up by helper. Patient completes activity by themselves 4 Supervision or touching assist (CGA). [place] provide cues , steadying assist 3 The helper provides less than half the effort to complete the activity 2 The helper provides more than half the effort to complete the activity 1 Dependent. The helper does all the effort to complete an activity 7 Patient refused to complete or attempt activity 9 The patient did not perform the activity before the current illness or injury 88 Not attempted due to Medical conditions or safety concerns Grooming (FIM): 6 (Sitting in w/c at sink, pt is able to complete all grooming by self.) Oral Hygiene (QC): 6 Bathing (FIM): 4 (Min A due to LOB toward L side. Pt able to cleanse all areas , leaning toward side to cleanse buttocks and AE for lower legs.) Shower/Bathe Self (QC): 3 Upper Body (FIM): 5 (Pt able to complete, verbal cues for tips/tricks to complete one handed dressing technique.) Upper Body Dressing (QC): 4 Lower Body Dressing (FIM): 2 (Assistance to don over L foot. Pt stands with CGA while using grabbar to stabilize self. Assist in standing while pt hiked pants over R hip, assist to hike over L hip. Assist to don L sock and shoe, pt able to don R sock and shoe.) Lower Body Dressing (QC): 2 On/Off Footwear (QC): 3 Transfers (B, C, W/C) (FIM): 4 (CGA for safety.) Shower Transfer(FIM): 4 (Using grabbar, shower bench and hand helds shower pt is able to complete with CGA.) Other Treatment Pt worked on dynamic sitting balance in w/c. Pt was able to picker and place cones on/off floor without LOB with close SBA. After therapy, pt sitting in w/ c in room. Call light/phone in reach. All needs met in room. OT Short Term Goals Short Term Goals Time Frame: April 07, 2018 Bathing(FIM): 4 Upper Body Dressing(FIM): 4 Lower Body Dressing(FIM): 4 Toileting(FIM): 4 Shower Transfer(FIM): 4 Additional Short Term Goals: 2-Verbalize Understanding, 3-ImproveStrength/Aristides 1=Demonstrate adherence to instructed precautions during ADL tasks. 2=Patient will verbalize/demonstrate understanding of assistive devices/ modifications for ADL. 3=Patient will improve strength/tolerance for activity to enable patient to perform ADL's. OT Intranet Developer Goals Intranet Developer Goals Time Frame: April 21, 2018 Eating (FIM): 6 Eating (QC): 6 Groomin Oral Hygiene (QC): 6 Bathing(FIM): 5 Shower/Bathe Self (QC): 5 Upper Body Dressing(FIM): 6 Upper Body Dressing (QC): 6 Lower Body Dressing(FIM): 5 Lower Body Dressing (QC): 5 On/Off Footwear (QC): 5 Toileting(FIM): 6 Toileting Hygiene (QC): 6 Toilet/Commode Transfer(FIM): 6 Toilet/Commode Transfer (QC): 6 Shower Transfer(FIM): 5 Comprehension(FIM): 7 (MET) Expression (FIM): 7 (MET) Social Interaction(FIM): 7 (MET) Problem Solving(FIM): 7 (MET) Memory(FIM): 7 (MET) Additional Goals: 2-Verbalize Understanding, 3-ImproveStrength/Aristides 1=Demonstrate adherence to instructed precautions during ADL tasks. 2=Patient will verbalize/demonstrate understanding of assistive devices/ modifications for ADL. 3=Patient will improve strength/tolerance for activity to enable patient to perform ADL's. OT Education/Plan Discharge Recommendations Plan/Recommendations: Continue POC Treatment Plan/Plan of Care Patient would benefit from OT for education, treatment and training to promote independence in ADL's, mobility, safety and/or upper extremity function for ADL' s. Plan of Care: ADL Retraining, Functional Mobility, Group Exercise/Act as Ind, UE Funct Exercise/Act, UE Neuromus Re-Ed/Coord Treatment Duration: April 21, 2018 Frequency: At least 5 of 7 days/Wk (IRF) Estimated Hrs Per Day: 1.5 hours per day Agreement: Yes Rehab Potential: Good Time/GCodes Start Time: 11:00 Stop Time: 12:00 Total Time Billed (hr/min): 60 Billed Treatment Time 1 visit-ADL 3 (45 min) NM 1 (15 min) CLARISSA GILBERT April 06, 2018 11:55
--- NOTE | 2018-04-06 14:45 | Therapy Group Daily Note ---
Therapy Daily Group Note Patient Education Topic Other List Below (memory strategies) Exercises LE Seated Exercise, UE Exercise Other/Notes Pt maneuvered w/c to OT/PT group in [facility]. Group consisted of introductions(name, place living, most embarrassing forgotten event), socialization, memory strategies, memory activity, UE/LE seated exercises and personal memory strategies. Pt appropriately introduced self. Pt actively listened to peers throughout group. Pt was able to use gestures and verbal commands to pick matches in memory activity. Completed UE exercises with B UE( AAROM) and B LE seated exercises. After group, pt lying in bed with call light /phone in reach. All needs met in room. Start Time: 13:00 Stop Time: 14:20 Total Billed Treatment Time: 80 Total Billed Treatment 1-GRP CLARISSA GILBERT April 06, 2018 14:45
[2018-04-06] MEDS: RIVAROXABAN 20 MG TABLET (XARELTO) PO SCH (16:59)
[2018-04-06 18:00] VITALS: BP 131/75
[2018-04-06] MEDS: ATORVASTATIN 80 MG (LIPITOR) TABLET PO SCH (21:27)
[2018-04-07 06:04] VITALS: BP 117/65
[2018-04-07 08:07] VITALS: BP 143/80
[2018-04-07] MEDS: ASPIRIN E.C. 81 MG (ECOTRIN) TAB PO SCH (08:07)
[2018-04-07] MEDS: lisINopril 5 MG (PRINIVIL) TABLET PO SCH (08:07)
--- NOTE | 2018-04-07 08:29 | Progress Note (SOAP) ---
Subjective Time Seen by Provider: 08:25 Subjective/Events-last exam Patient feels he is improving. Patient still needs help with his gait Objective Exam Vital Signs Date Time Temp Pulse Resp B/P (MAP) Pulse Ox O2 Delivery O2 Flow Rate FiO2 04/07/18 08:07 86 143/80 (101) 04/07/18 06:04 96.0 72 19 117/65 (82) 97 Room Air 04/06/18 21:00 Room Air 04/06/18 18:00 97.6 87 18 131/75 (93) 97 Room Air 04/06/18 09:00 Room Air I & O 04/07/18 07:00 Intake Total 1450 ml Output Total 1400 ml Balance 50 ml Capillary Refill : General Appearance: No Apparent Distress, Thin Assessment/Plan Assessment/Plan Assess & Plan/Chief Complaint CVA history of tobaccoism History of drinking. . 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 CVA. History of tobaccoism. History of drinking. Patient ready for PT and OT. . 04/03/18. CVA. History of tobaccoism. Patient working to get better. . 04/06/18. Patient improving. Patient moving left leg better. Patient swing with left. . 04/07/18. CVA. Tobacco history. Patient still needing help but improving Clinical Quality Measures DVT/VTE Risk/Contraindication: Risk Factor Score Per Nursin RFS Level Per Nursing on Admit: 4+=Very High MARITZA ROE DO April 07, 2018 08:29
--- NOTE | 2018-04-07 10:58 | Physical Therapy Daily Note ---
PT Daily Note-Current Subjective Patient in wheelchair pre tx, agrees to PT, no complaints of pain. Appearance Patient in wheelchair at bedside post tx , has nurse call, phone, tray, all needs met. Mental Status Patient Orientation: Person, Place, Situation Transfers Functional [place] Measure 0=Not Assessed/NA 4=Minimal Assistance 1=Total Assistance 5=Supervision or Setup 2=Maximal Assistance 6=Modified [place] 3=Moderate Assistance 7=Complete IndependenceIRFPAI Quality Coding Scale 6 Independent with activity with or without an assistive device 5 Patient requires set up or clean up by helper. Patient completes activity by themselves 4 Supervision or touching assist (CGA). [place] provide cues , steadying assist 3 The helper provides less than half the effort to complete the activity 2 The helper provides more than half the effort to complete the activity 1 Dependent. The helper does all the effort to complete an activity 7 Patient refused to complete or attempt activity 9 The patient did not perform the activity before the current illness or injury 88 Not attempted due to Medical conditions or safety concerns Transfers (B, C, W/C) (FIM): 4 Scootin Rollin Supine to/from Sit: 4 Sit to/from Stand: 4 Bed to/from Chair: 4 Patient needed min assist to get his left leg into bed. CGA for transfers. Weight Bearing Right Lower Extremity: Right Full Weight Bearing Left Lower Extremity: Left Full Weight Bearing Gait Training Gait (FIM): 2 Distance: 100'x2 Gait Level of Assist: 4 Gait Persons Needed: 1 Gait Assistive Device: Cane Small Base Quad CGA, 3# ankle weight on left leg, used a quad cane this time. Patient had less ankle instability, weak quads but is able to bear weight. Wheelchair Training Does the Pt Use a Wheelchair?: Yes Wheelchair (FIM): 6 Distance: 150'x2 Type of Wheelchair: Manual Exercises Supine Ex: Bridging, Hip abd/add Supine Reps: 20 Seated Therapy Exercises: Long arc quads Seated Reps: 20 NuStep Minutes: 15 NuStep Workload: 5 Treatments bed mobility and transfers, ambulation, functional strengthening Assessment Current Status: Fair Progress improving strength and endurance PT Short Term Goals Short Term Goals Time Frame: April 10, 2018 Gait (FIM): 4 Distance (FIM): 3=150 ft Gait Distance Comment: 200' Gait Level of Assist: 4 Gait Assistive Device: Walker Osei Wheelchair (FIM): 5 Wheelchair distance (FIM): 3=150 ft Wheelchair Distance: 100' Wheelchair Level of Assist: 5 Stairs (FIM): 2 # of Steps: 4 Stairs Level of Assist: 4 PT Regulatory Affairs Coordinator Goals Mcc Goals PT Mcc Goals Time Frame: April 30, 2018 Transfers (B,C,W/C) (FIM): 6 Sit to Lying (QC): 6 Lying-Sitting on Side/Bed(QC): 6 Sit to Stand (QC): 6 Rollin Roll Left to Right (QC): 6 Chair/Hoz-su-Invpn Xfer(QC): 6 Car Transfer (QC): 6 Does the Patient Walk: Yes Gait (FIM): 5 Gait distance (FIM): 3=150 ft Distance: 250' Walk 10 feet (QC): 6 Walk 10ft-Uneven Surface(QC): 5 Walk 50ft with 2 Turns (QC): 6 Walk 150 ft (QC): 6 Gait Level of Assist: 5 Gait Assistive Device: Walker Osei Does the Pt use WC or Scooter?: Yes Wheelchair (FIM): 6 Wheelchair distance (FIM): 3=150 ft Wheelchair Level of Assist: 6 Wheel 50 feet with 2 turns (QC: 6 Stairs (FIM): 5 # of Steps: 12 1 Step (curb) (QC): 5 4 Steps (QC): 5 12 Steps (QC): 5 Stairs Level Of Assist: 5 Picking up an Object (QC): 6 PT Plan Problem List Problem List: Activity Tolerance, Functional Strength, Safety, Balance, Gait, Transfer, Bed Mobility, ROM Treatment/Plan Treatment Plan: Continue Plan of Care Treatment Plan: Bed Mobility, Concurrent Therapy, Education, Functional Activity Aristides, Functional Strength, Group Therapy, Gait, Safety, Therapeutic Exercise, Transfers Treatment Duration: April 30, 2018 Frequency: At least 5 of 7 days/Wk (IRF) Estimated Hrs Per Day: 1.5 hours per day Patient and/or Family Agrees t: Yes Safety Risks/Education Patient Education: Gait Training, Transfer Techniques, Correct Positioning, W/ C Management, Safety Issues Teaching Recipient: Patient Teaching Methods: Demonstration, Discussion Response to Teaching: Reinforcement Needed Time/GCodes Time In: 1000 Time Out: 1100 Total Billed Treatment Time: 60 Total Billed Treatment 1 visit GT 30' EX 30' MARY KAY RDYER PT April 07, 2018 10:58
--- NOTE | 2018-04-07 11:17 | Occupational Ther Daily Note ---
OT Current Status-Daily Note Subjective Pt in bed, agrees to treatment. No c/o pain. Mental Status/Objective Functional [place] Measure 0=Not Assessed/NA 4=Minimal Assistance 1=Total Assistance 5=Supervision or Setup 2=Maximal Assistance 6=Modified [place] 3=Moderate Assistance 7=Complete [place] ADL-Treatment Pt supine to sit with supervision. Transfer to w/c with CGA. W/c mobility to restroom with minimal assistance to maneuver in tight spaces. Transfer w/c <-> shower bench with CGA using grab bar for safety. Pt doffed shirt and socks with SBA. Pt required assist to pull pants down over hips, but then able to doff the rest of the way with SBA. Seated bathing completed using hand held shower. Uses long handled sponge to wash lower legs and feet. Min assist for lower body bathing. Pt donned pullover shirt with SBA using modified technique. Pt able to thread bilateral LE into underwear and shorts. Sit to stand with minimal assistance. Pt able to maintain balance with minimal assistance and is able to complete pant hike using right UE. Don bilateral socks with SBA and increased time. Pt able to don right shoe without assistance, but requires minimal assistance to don left shoe. Grooming tasks completed while seated at sink. Brushed teeth and combed hair with modified independence. Pt gathered laundry and took it to laundry room using w/c. Pt placed clothing and soap in washer. Sit to stand with CGA. Pt able to manage washer settings while standing with CGA. Pt states he has a tub/shower combo at home and has a shower chair. Instructed pt in safe tub transfers using shower chair. Pt completed transfer w/c <-> tub shower with minimal assistance using shower chair. Skilled cues required for safety and technique. Uses grab bar for balance. Functional [place] Measure 0=Not Assessed/NA 4=Minimal Assistance 1=Total Assistance 5=Supervision or Setup 2=Maximal Assistance 6=Modified [place] 3=Moderate Assistance 7=Complete IndependenceIRFPAI Quality Coding Scale 6 Independent with activity with or without an assistive device 5 Patient requires set up or clean up by helper. Patient completes activity by themselves 4 Supervision or touching assist (CGA). [place] provide cues , steadying assist 3 The helper provides less than half the effort to complete the activity 2 The helper provides more than half the effort to complete the activity 1 Dependent. The helper does all the effort to complete an activity 7 Patient refused to complete or attempt activity 9 The patient did not perform the activity before the current illness or injury 88 Not attempted due to Medical conditions or safety concerns Grooming (FIM): 6 Oral Hygiene (QC): 6 Bathing (FIM): 4 Shower/Bathe Self (QC): 3 Upper Body (FIM): 5 Upper Body Dressing (QC): 4 Lower Body Dressing (FIM): 4 Lower Body Dressing (QC): 3 On/Off Footwear (QC): 4 Shower Transfer(FIM): 4 Other Treatment W/c mobility to therapy gym without assistance. Transfer w/c <-> edge of mat with CGA. Pt completed weight bearing through left UE with assist to maintain proper positioning. Pt performed self ROM to left UE x5 reps with occasional cues for technique. Pt completed weight shifting side to side to increase core strength and balance. Pt completed balloon bat activity with right UE while seated EOB to promote increased dynamic sitting balance and core strength. Pt has occasional LOB requiring CGA to min assist to correct when reaching outside base of support. Pt returned to room, sitting in w/c with needs met after session. OT Short Term Goals Short Term Goals Time Frame: April 07, 2018 Bathing(FIM): 4 Upper Body Dressing(FIM): 4 Lower Body Dressing(FIM): 4 Toileting(FIM): 4 Shower Transfer(FIM): 4 Additional Short Term Goals: 2-Verbalize Understanding, 3-ImproveStrength/Aristides 1=Demonstrate adherence to instructed precautions during ADL tasks. 2=Patient will verbalize/demonstrate understanding of assistive devices/ modifications for ADL. 3=Patient will improve strength/tolerance for activity to enable patient to perform ADL's. OT Jail Goals Rn Lvn Goals Time Frame: April 21, 2018 Eating (FIM): 6 Eating (QC): 6 Groomin Oral Hygiene (QC): 6 Bathing(FIM): 5 Shower/Bathe Self (QC): 5 Upper Body Dressing(FIM): 6 Upper Body Dressing (QC): 6 Lower Body Dressing(FIM): 5 Lower Body Dressing (QC): 5 On/Off Footwear (QC): 5 Toileting(FIM): 6 Toileting Hygiene (QC): 6 Toilet/Commode Transfer(FIM): 6 Toilet/Commode Transfer (QC): 6 Shower Transfer(FIM): 5 Comprehension(FIM): 7 (MET) Expression (FIM): 7 (MET) Social Interaction(FIM): 7 (MET) Problem Solving(FIM): 7 (MET) Memory(FIM): 7 (MET) Additional Goals: 2-Verbalize Understanding, 3-ImproveStrength/Aristides 1=Demonstrate adherence to instructed precautions during ADL tasks. 2=Patient will verbalize/demonstrate understanding of assistive devices/ modifications for ADL. 3=Patient will improve strength/tolerance for activity to enable patient to perform ADL's. OT Education/Plan Discharge Recommendations Plan/Recommendations: Continue POC Treatment Plan/Plan of Care Patient would benefit from OT for education, treatment and training to promote independence in ADL's, mobility, safety and/or upper extremity function for ADL' s. Plan of Care: ADL Retraining, Functional Mobility, Group Exercise/Act as Ind, UE Funct Exercise/Act, UE Neuromus Re-Ed/Coord Treatment Duration: April 21, 2018 Frequency: At least 5 of 7 days/Wk (IRF) Estimated Hrs Per Day: 1.5 hours per day Agreement: Yes Rehab Potential: Good Time/GCodes Start Time: 08:00 Stop Time: 09:30 Total Time Billed (hr/min): 90 Billed Treatment Time 1 visit, ADLx4(60minutes), FAx2(30minutes) GUSTAVO IZAGUIRRE OT April 07, 2018 11:16
--- NOTE | 2018-04-07 14:32 | Physical Therapy Daily Note ---
PT Daily Note-Current Subjective Patient in bed pre tx, agrees to PT, no complaints of pain. Appearance Patient in bed post tx with nurse call, phone, tray, all needs met. Mental Status Patient Orientation: Person, Place, Situation Transfers Functional [place] Measure 0=Not Assessed/NA 4=Minimal Assistance 1=Total Assistance 5=Supervision or Setup 2=Maximal Assistance 6=Modified [place] 3=Moderate Assistance 7=Complete IndependenceIRFPAI Quality Coding Scale 6 Independent with activity with or without an assistive device 5 Patient requires set up or clean up by helper. Patient completes activity by themselves 4 Supervision or touching assist (CGA). [place] provide cues , steadying assist 3 The helper provides less than half the effort to complete the activity 2 The helper provides more than half the effort to complete the activity 1 Dependent. The helper does all the effort to complete an activity 7 Patient refused to complete or attempt activity 9 The patient did not perform the activity before the current illness or injury 88 Not attempted due to Medical conditions or safety concerns Transfers (B, C, W/C) (FIM): 4 Sit to/from Stand: 4 Bed to/from Chair: 4 CGA Weight Bearing Right Lower Extremity: Right Full Weight Bearing Left Lower Extremity: Left Full Weight Bearing Gait Training Gait (FIM): 2 Distance: 100'x2 Gait Level of Assist: 4 Gait Persons Needed: 1 Gait Assistive Device: Cane Small Base Quad Patient ambulated with 2 LOB that needed therapist assist, poor foot clearance on left side, cues for stepping. Wheelchair Training Wheelchair (FIM): 5 Distance: 150'x2 Wheelchair Level of Assist: 5 Type of Wheelchair: Manual Exercises Seated Therapy Exercises: Long arc quads, Hip flexion Seated Reps: 20 Standing: Hip Abduction, Marching Standing Reps: 20 Treatments bed mobility and transfers, ambulation, wheelchair mobility, functional strengthening Assessment Current Status: Fair Progress improving endurance but had a couple of losses of balance this afternoon PT Short Term Goals Short Term Goals Time Frame: April 10, 2018 Gait (FIM): 4 Distance (FIM): 3=150 ft Gait Distance Comment: 200' Gait Level of Assist: 4 Gait Assistive Device: Walker Osei Wheelchair (FIM): 5 Wheelchair distance (FIM): 3=150 ft Wheelchair Distance: 150'x2 Wheelchair Level of Assist: 5 Stairs (FIM): 2 # of Steps: 4 Stairs Level of Assist: 4 PT Dispatcher Automobile Rental Goals Alf Goals PT Dispatcher Automobile Rental Goals Time Frame: April 30, 2018 Transfers (B,C,W/C) (FIM): 6 Sit to Lying (QC): 6 Lying-Sitting on Side/Bed(QC): 6 Sit to Stand (QC): 6 Rollin Roll Left to Right (QC): 6 Chair/Fdu-fv-Qruft Xfer(QC): 6 Car Transfer (QC): 6 Does the Patient Walk: Yes Gait (FIM): 5 Gait distance (FIM): 3=150 ft Distance: 250' Walk 10 feet (QC): 6 Walk 10ft-Uneven Surface(QC): 5 Walk 50ft with 2 Turns (QC): 6 Walk 150 ft (QC): 6 Gait Level of Assist: 5 Gait Assistive Device: Walker Osei Does the Pt use WC or Scooter?: Yes Wheelchair (FIM): 6 Wheelchair distance (FIM): 3=150 ft Wheelchair Level of Assist: 6 Wheel 50 feet with 2 turns (QC: 6 Stairs (FIM): 5 # of Steps: 12 1 Step (curb) (QC): 5 4 Steps (QC): 5 12 Steps (QC): 5 Stairs Level Of Assist: 5 Picking up an Object (QC): 6 PT Plan Problem List Problem List: Activity Tolerance, Functional Strength, Safety, Balance, Gait, Transfer, Bed Mobility, ROM Treatment/Plan Treatment Plan: Continue Plan of Care Treatment Plan: Bed Mobility, Concurrent Therapy, Education, Functional Activity Aristides, Functional Strength, Group Therapy, Gait, Safety, Therapeutic Exercise, Transfers Treatment Duration: April 30, 2018 Frequency: At least 5 of 7 days/Wk (IRF) Estimated Hrs Per Day: 1.5 hours per day Patient and/or Family Agrees t: Yes Safety Risks/Education Patient Education: Gait Training, Transfer Techniques, Correct Positioning, W/ C Management, Safety Issues Teaching Recipient: Patient Teaching Methods: Demonstration, Discussion Response to Teaching: Reinforcement Needed Time/GCodes Time In: 1400 Time Out: 1430 Total Billed Treatment Time: 30 Total Billed Treatment 1 visit 20' GT 10' EX MARY KAY RYDER PT April 07, 2018 14:32
--- NOTE | 2018-04-07 15:28 | PM & R (SOAP) Progress Note ---
Subjective This was a face to face visit with the patient. Date Seen by Provider: April 07, 2018 Time Seen by Provider: 07:55 Subjective/Events-last exam Patient was seen in his room this AM Patient min assist for transfers Review of Systems Neurological: Weakness Objective Physician Exam Last Set of Vital Signs Vital Signs Date Time Temp Pulse Resp B/P (MAP) Pulse Ox O2 Delivery O2 Flow Rate FiO2 04/07/18 09:11 Room Air 04/07/18 08:07 86 143/80 (101) 04/07/18 06:04 96.0 19 97 Capillary Refill : I&O Intake and Output 04/07/18 00:00 Intake Total 1480 ml Output Total 1400 ml Balance 80 ml Intake Oral 1480 ml Output Urine Total 1400 ml General: Alert, Oriented X3, Cooperative, No Acute Distress HEENT: Atraumatic, PERRLA, EOMI, Mucous Memb Moist/[place], Other (Coughing with swaloowing liquids) Neck: Supple, No JVD Lungs: Clear to Auscultation Heart: Regular Rate Abdomen: Normal Bowel Sounds, Soft, No Tenderness Extremities: No Edema Neuro: Other (Left HP) Assessment/Plan Assessment and Plan 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
[2018-04-07] MEDS: RIVAROXABAN 20 MG TABLET (XARELTO) PO SCH (18:17)
[2018-04-07 18:59] VITALS: BP 138/76
[2018-04-07] MEDS: ATORVASTATIN 80 MG (LIPITOR) TABLET PO SCH (20:09)
[2018-04-08 05:35] VITALS: BP 143/65
--- NOTE | 2018-04-08 08:14 | Progress Note (SOAP) ---
Subjective Time Seen by Provider: 08:14 Subjective/Events-last exam Patient doing better with his leg. Slow process with his upper extremity. CVA. Objective Exam Vital Signs Date Time Temp Pulse Resp B/P (MAP) Pulse Ox O2 Delivery O2 Flow Rate FiO2 04/08/18 05:35 97.8 79 19 143/65 (91) 97 Room Air 04/07/18 20:16 Room Air 04/07/18 18:59 98.1 103 18 138/76 (96) 97 Room Air 04/07/18 09:11 Room Air I & O 04/08/18 07:00 Intake Total 1250 ml Output Total 450 ml Balance 800 ml Capillary Refill : General Appearance: No Apparent Distress, WD/WN Assessment/Plan Assessment/Plan Assess & Plan/Chief Complaint CVA history of tobaccoism History of drinking. . 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 CVA. History of tobaccoism. History of drinking. Patient ready for PT and OT. . 04/03/18. CVA. History of tobaccoism. Patient working to get better. . 04/06/18. Patient improving. Patient moving left leg better. Patient swing with left. . 04/07/18. CVA. Tobacco history. Patient still needing help but improving. . 04/08/18. CVA. Tobacco history. Patient able to get his pants today. Patient having difficulty with upper extremity Clinical Quality Measures DVT/VTE Risk/Contraindication: Risk Factor Score Per Nursin RFS Level Per Nursing on Admit: 4+=Very High MARITZA ROE DO April 08, 2018 08:14
[2018-04-08] MEDS: ASPIRIN E.C. 81 MG (ECOTRIN) TAB PO SCH (08:47)
[2018-04-08] MEDS: lisINopril 5 MG (PRINIVIL) TABLET PO SCH (08:47)
--- NOTE | 2018-04-08 10:55 | Physical Therapy Daily Note ---
PT Daily Note-Current Subjective Patient in wheelchair pre tx, agrees to PT, no complaints of pain. Appearance Patient in bed post tx with nurse call, phone, tray, all needs met. Mental Status Patient Orientation: Person, Place, Situation Transfers Functional [place] Measure 0=Not Assessed/NA 4=Minimal Assistance 1=Total Assistance 5=Supervision or Setup 2=Maximal Assistance 6=Modified [place] 3=Moderate Assistance 7=Complete IndependenceIRFPAI Quality Coding Scale 6 Independent with activity with or without an assistive device 5 Patient requires set up or clean up by helper. Patient completes activity by themselves 4 Supervision or touching assist (CGA). [place] provide cues , steadying assist 3 The helper provides less than half the effort to complete the activity 2 The helper provides more than half the effort to complete the activity 1 Dependent. The helper does all the effort to complete an activity 7 Patient refused to complete or attempt activity 9 The patient did not perform the activity before the current illness or injury 88 Not attempted due to Medical conditions or safety concerns Transfers (B, C, W/C) (FIM): 4 Scootin Rollin Supine to/from Sit: 5 Sit to/from Stand: 4 Bed to/from Chair: 4 Car Transfer (QC): 3 bed mobility SBA (he has some difficulty with supine <-> sit but can do it without assist), transfers CGA. Car transfer min assist. Weight Bearing Right Lower Extremity: Right Full Weight Bearing Left Lower Extremity: Left Full Weight Bearing Gait Training Gait (FIM): 4 Distance: 150', 100', 100' Gait Level of Assist: 4 Gait Persons Needed: 1 Gait Assistive Device: Cane Small Base Quad Patient can ambulate 150' with a quad cane with min assist for occasional LOB. Left foot has poor foot clearance and sometimes has poor step through, and left knee tends to buckle and left hip flexes with weight bearing on the left side. He tried ambulating quickly with a therapist on each side for support but with increased speed he hyperextends his left knee forcefully. Exercises NuStep Minutes: 15 NuStep Workload: 5 Treatments bed mobility and transfers (worked on stand pivot to the left side), ambulation , functional strengthening Assessment Current Status: Fair Progress improving endurance and ambulation PT Short Term Goals Short Term Goals Time Frame: April 10, 2018 Gait (FIM): 4 Distance (FIM): 3=150 ft Gait Distance Comment: 200' Gait Level of Assist: 4 Gait Assistive Device: Walker Osei Wheelchair (FIM): 5 Wheelchair distance (FIM): 3=150 ft Wheelchair Distance: 150'x2 Wheelchair Level of Assist: 5 Stairs (FIM): 2 # of Steps: 4 Stairs Level of Assist: 4 PT Sheep Sorter Goals Half-Way Goals PT Sheep Sorter Goals Time Frame: April 30, 2018 Transfers (B,C,W/C) (FIM): 6 Sit to Lying (QC): 6 Lying-Sitting on Side/Bed(QC): 6 Sit to Stand (QC): 6 Rollin Roll Left to Right (QC): 6 Chair/Tvi-hm-Gqwzg Xfer(QC): 6 Car Transfer (QC): 6 Does the Patient Walk: Yes Gait (FIM): 5 Gait distance (FIM): 3=150 ft Distance: 250' Walk 10 feet (QC): 6 Walk 10ft-Uneven Surface(QC): 5 Walk 50ft with 2 Turns (QC): 6 Walk 150 ft (QC): 6 Gait Level of Assist: 5 Gait Assistive Device: Walker Osei Does the Pt use WC or Scooter?: Yes Wheelchair (FIM): 6 Wheelchair distance (FIM): 3=150 ft Wheelchair Level of Assist: 6 Wheel 50 feet with 2 turns (QC: 6 Stairs (FIM): 5 # of Steps: 12 1 Step (curb) (QC): 5 4 Steps (QC): 5 12 Steps (QC): 5 Stairs Level Of Assist: 5 Picking up an Object (QC): 6 PT Plan Problem List Problem List: Activity Tolerance, Functional Strength, Safety, Balance, Gait, Transfer, Bed Mobility, ROM Treatment/Plan Treatment Plan: Continue Plan of Care Treatment Plan: Bed Mobility, Concurrent Therapy, Education, Functional Activity Aristides, Functional Strength, Group Therapy, Gait, Safety, Therapeutic Exercise, Transfers Treatment Duration: April 30, 2018 Frequency: At least 5 of 7 days/Wk (IRF) Estimated Hrs Per Day: 1.5 hours per day Patient and/or Family Agrees t: Yes Safety Risks/Education Patient Education: Gait Training, Transfer Techniques, Correct Positioning, Safety Issues Teaching Recipient: Patient Teaching Methods: Demonstration, Discussion Response to Teaching: Reinforcement Needed Time/GCodes Time In: 1000 Time Out: 1100 Total Billed Treatment Time: 60 Total Billed Treatment 1 visit EX 15' FA 10' GT 35' MARY KAY RYDER PT April 08, 2018 10:55
--- NOTE | 2018-04-08 11:36 | Occupational Ther Daily Note ---
OT Current Status-Daily Note Subjective Pt in bed, agrees to treatment. No c/o pain. Mental Status/Objective Functional [place] Measure 0=Not Assessed/NA 4=Minimal Assistance 1=Total Assistance 5=Supervision or Setup 2=Maximal Assistance 6=Modified [place] 3=Moderate Assistance 7=Complete [place] ADL-Treatment Pt supine to sit with SBA. Transfer to w/c with CGA. Pt has already retrieved clothing this morning. W/c mobility to restroom with SBA. Transfer w/c <-> shower bench with CGA. Pt doffed lower body clothing with CGA for balance. Doff shirt with SBA. Pt completed seated shower using long handled sponge to wash lower legs and feet. Pt required minimal assistance overall. Don pullover shirt with modified independence while seated. Pt able to thread bilateral LE into pant legs. Then able to stand with CGA for balance during pant hike. Pt leans slightly on the wall to maintain balance during pant hike. Pt donned socks with SBA. Dons right shoe with SBA. Pt able to don left shoe, but requires assist to tie. Grooming tasks completed with modified independence while seated at sink. Pt demonstrated ability to perform toilet transfer x2 trials with CGA using grab bars for safety. Pt put dirty clothes in the laundry. W/c mobility to kitchen. Pt got a glass of ice without assistance while seated in w/c. Pt returned to room, sitting in w/c with needs met after session. Functional [place] Measure 0=Not Assessed/NA 4=Minimal Assistance 1=Total Assistance 5=Supervision or Setup 2=Maximal Assistance 6=Modified [place] 3=Moderate Assistance 7=Complete IndependenceIRFPAI Quality Coding Scale 6 Independent with activity with or without an assistive device 5 Patient requires set up or clean up by helper. Patient completes activity by themselves 4 Supervision or touching assist (CGA). [place] provide cues , steadying assist 3 The helper provides less than half the effort to complete the activity 2 The helper provides more than half the effort to complete the activity 1 Dependent. The helper does all the effort to complete an activity 7 Patient refused to complete or attempt activity 9 The patient did not perform the activity before the current illness or injury 88 Not attempted due to Medical conditions or safety concerns Grooming (FIM): 6 Oral Hygiene (QC): 6 Bathing (FIM): 4 Upper Body (FIM): 6 Upper Body Dressing (QC): 6 Lower Body Dressing (FIM): 4 Lower Body Dressing (QC): 3 Toilet/Commode Transfer (FIM): 4 (CGA) Shower Transfer(FIM): 4 (CGA) OT Short Term Goals Short Term Goals Time Frame: April 07, 2018 Bathing(FIM): 4 Upper Body Dressing(FIM): 4 Lower Body Dressing(FIM): 4 Toileting(FIM): 4 Shower Transfer(FIM): 4 Additional Short Term Goals: 2-Verbalize Understanding, 3-ImproveStrength/Aristides 1=Demonstrate adherence to instructed precautions during ADL tasks. 2=Patient will verbalize/demonstrate understanding of assistive devices/ modifications for ADL. 3=Patient will improve strength/tolerance for activity to enable patient to perform ADL's. OT Fci Goals Sander Hand Goals Time Frame: April 21, 2018 Eating (FIM): 6 Eating (QC): 6 Groomin Oral Hygiene (QC): 6 Bathing(FIM): 5 Shower/Bathe Self (QC): 5 Upper Body Dressing(FIM): 6 Upper Body Dressing (QC): 6 Lower Body Dressing(FIM): 5 Lower Body Dressing (QC): 5 On/Off Footwear (QC): 5 Toileting(FIM): 6 Toileting Hygiene (QC): 6 Toilet/Commode Transfer(FIM): 6 Toilet/Commode Transfer (QC): 6 Shower Transfer(FIM): 5 Comprehension(FIM): 7 (MET) Expression (FIM): 7 (MET) Social Interaction(FIM): 7 (MET) Problem Solving(FIM): 7 (MET) Memory(FIM): 7 (MET) Additional Goals: 2-Verbalize Understanding, 3-ImproveStrength/Aristides 1=Demonstrate adherence to instructed precautions during ADL tasks. 2=Patient will verbalize/demonstrate understanding of assistive devices/ modifications for ADL. 3=Patient will improve strength/tolerance for activity to enable patient to perform ADL's. OT Education/Plan Discharge Recommendations Plan/Recommendations: Continue POC Treatment Plan/Plan of Care Patient would benefit from OT for education, treatment and training to promote independence in ADL's, mobility, safety and/or upper extremity function for ADL' s. Plan of Care: ADL Retraining, Functional Mobility, Group Exercise/Act as Ind, UE Funct Exercise/Act, UE Neuromus Re-Ed/Coord Treatment Duration: April 21, 2018 Frequency: At least 5 of 7 days/Wk (IRF) Estimated Hrs Per Day: 1.5 hours per day Agreement: Yes Rehab Potential: Good Time/GCodes Start Time: 08:00 Stop Time: 09:00 Total Time Billed (hr/min): 60 Billed Treatment Time 1 visit, ADLx4(60minutes) GUSTAVO IZAGUIRRE OT April 08, 2018 11:36
--- NOTE | 2018-04-08 15:25 | Therapy Group Daily Note ---
Therapy Daily Group Note Patient Education Topic Other List Below (handwashing and disease prevention) Exercises LE Seated Exercise, UE Exercise Other/Notes Pt attended OT/PT group this pm via w/c. Pt able to propel w/c without assistance. Pt introduced self to group for socialization and appropriately participated in group discussion. Pt able to recall 4/4 memory words from previous group session. Education consisted of the importance of handwashing and its relationship to disease prevention. Pt actively listened during education and group discussion. Pt participated in UE/LE seated exercises. Pt does not have active movement of left UE, so completed self ROM exercises. Pt returned to room after session. Start Time: 13:00 Stop Time: 14:00 Total Billed Treatment Time: 60 Total Billed Treatment 1 visit, GRP(60minutes) GUSTAVO IZAGUIRRE OT April 08, 2018 15:25
[2018-04-08] MEDS: RIVAROXABAN 20 MG TABLET (XARELTO) PO SCH (18:03)
[2018-04-08 18:25] VITALS: BP 144/70
[2018-04-08] MEDS: ATORVASTATIN 80 MG (LIPITOR) TABLET PO SCH (20:22)
[2018-04-09 05:28] VITALS: BP 136/72
--- NOTE | 2018-04-09 08:20 | Progress Note (SOAP) ---
Subjective Time Seen by Provider: 08:15 Subjective/Events-last exam CVA. Patient doing better with lower extremity. Patient not doing so good with upper t extremity Objective Exam Vital Signs Date Time Temp Pulse Resp B/P (MAP) Pulse Ox O2 Delivery O2 Flow Rate FiO2 04/09/18 05:28 97.5 85 20 136/72 (93) 96 Room Air 04/08/18 20:00 Room Air 04/08/18 18:25 96.0 97 18 144/70 (94) 97 Room Air 04/08/18 08:34 Room Air I & O 04/09/18 07:00 Intake Total 1080 ml Output Total 1425 ml Balance -345 ml Capillary Refill : General Appearance: No Apparent Distress, WD/WN Assessment/Plan Assessment/Plan Assess & Plan/Chief Complaint CVA history of tobaccoism History of drinking. . 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 CVA. History of tobaccoism. History of drinking. Patient ready for PT and OT. . 04/03/18. CVA. History of tobaccoism. Patient working to get better. . 04/06/18. Patient improving. Patient moving left leg better. Patient swing with left. . 04/07/18. CVA. Tobacco history. Patient still needing help but improving. . 04/08/18. CVA. Tobacco history. Patient able to get his pants today. Patient having difficulty with upper extremity. . 04/09/18. CVA. Tobacco history. Patient A work IN progress Clinical Quality Measures DVT/VTE Risk/Contraindication: Risk Factor Score Per Nursin RFS Level Per Nursing on Admit: 4+=Very High MARITZA ROE DO April 09, 2018 08:20
--- NOTE | 2018-04-09 09:01 | Occupational Ther Daily Note ---
OT Current Status-Daily Note Subjective Pt resting in bed. Pt agrees to therapy. No c/o pain. Mental Status/Objective Patient Orientation: Person, Place, Time, Situation Functional [place] Measure 0=Not Assessed/NA 4=Minimal Assistance 1=Total Assistance 5=Supervision or Setup 2=Maximal Assistance 6=Modified [place] 3=Moderate Assistance 7=Complete [place] ADL-Treatment Pt retrieved clothes from bag next to bed. Pt agreed to shower. Pt able to bathe using shower bench, grabbar, hand held shower and long handle sponge with supervision for safety. SBA while pt leaned on wall to dry self. Pt donned shirt and socks by self. Standing with grabbar to balance self, attempted to hike pants down over hips then assist needed to complete. Pt able to don pants by self then close SBA in standing while pt leaning on wall to hike pants up over hips. Pt then maneuvered w/c to sink to complete own grooming. Functional [place] Measure 0=Not Assessed/NA 4=Minimal Assistance 1=Total Assistance 5=Supervision or Setup 2=Maximal Assistance 6=Modified [place] 3=Moderate Assistance 7=Complete IndependenceIRFPAI Quality Coding Scale 6 Independent with activity with or without an assistive device 5 Patient requires set up or clean up by helper. Patient completes activity by themselves 4 Supervision or touching assist (CGA). [place] provide cues , steadying assist 3 The helper provides less than half the effort to complete the activity 2 The helper provides more than half the effort to complete the activity 1 Dependent. The helper does all the effort to complete an activity 7 Patient refused to complete or attempt activity 9 The patient did not perform the activity before the current illness or injury 88 Not attempted due to Medical conditions or safety concerns Grooming (FIM): 6 Oral Hygiene (QC): 6 Bathing (FIM): 5 Shower/Bathe Self (QC): 4 Upper Body (FIM): 5 Upper Body Dressing (QC): 5 Lower Body Dressing (FIM): 4 Lower Body Dressing (QC): 3 On/Off Footwear (QC): 4 Shower Transfer(FIM): 5 Other Treatment Pt maneuvered w/c to therapy gym to complete core exercises in sitting. Pt was able to lean side to side and frontward to backward 30x's to increase strength and dynamic sitting for daily functional tasks. After therapy, pt sitting in w/ c in room with call light and phone in reach. All needs met in room. OT Short Term Goals Short Term Goals Time Frame: April 07, 2018 Bathing(FIM): 4 Upper Body Dressing(FIM): 4 Lower Body Dressing(FIM): 4 Toileting(FIM): 4 Shower Transfer(FIM): 4 Additional Short Term Goals: 2-Verbalize Understanding, 3-ImproveStrength/Aristides 1=Demonstrate adherence to instructed precautions during ADL tasks. 2=Patient will verbalize/demonstrate understanding of assistive devices/ modifications for ADL. 3=Patient will improve strength/tolerance for activity to enable patient to perform ADL's. OT Cooker Syrup Goals Retirement Goals Time Frame: April 21, 2018 Eating (FIM): 6 Eating (QC): 6 Groomin Oral Hygiene (QC): 6 Bathing(FIM): 5 Shower/Bathe Self (QC): 5 Upper Body Dressing(FIM): 6 Upper Body Dressing (QC): 6 Lower Body Dressing(FIM): 5 Lower Body Dressing (QC): 5 On/Off Footwear (QC): 5 Toileting(FIM): 6 Toileting Hygiene (QC): 6 Toilet/Commode Transfer(FIM): 6 Toilet/Commode Transfer (QC): 6 Shower Transfer(FIM): 5 Comprehension(FIM): 7 (MET) Expression (FIM): 7 (MET) Social Interaction(FIM): 7 (MET) Problem Solving(FIM): 7 (MET) Memory(FIM): 7 (MET) Additional Goals: 2-Verbalize Understanding, 3-ImproveStrength/Aristides 1=Demonstrate adherence to instructed precautions during ADL tasks. 2=Patient will verbalize/demonstrate understanding of assistive devices/ modifications for ADL. 3=Patient will improve strength/tolerance for activity to enable patient to perform ADL's. OT Education/Plan Discharge Recommendations Plan/Recommendations: Continue POC Treatment Plan/Plan of Care Patient would benefit from OT for education, treatment and training to promote independence in ADL's, mobility, safety and/or upper extremity function for ADL' s. Plan of Care: ADL Retraining, Functional Mobility, Group Exercise/Act as Ind, UE Funct Exercise/Act, UE Neuromus Re-Ed/Coord Treatment Duration: April 21, 2018 Frequency: At least 5 of 7 days/Wk (IRF) Estimated Hrs Per Day: 1.5 hours per day Agreement: Yes Rehab Potential: Good Time/GCodes Start Time: 08:00 Stop Time: 09:00 Total Time Billed (hr/min): 60 Billed Treatment Time 1 visit-ADL 3 (45 min) NM 1 (15 min) CLARISSA GILBERT April 09, 2018 09:01
[2018-04-09] MEDS: ASPIRIN E.C. 81 MG (ECOTRIN) TAB PO SCH (09:33)
[2018-04-09] MEDS: lisINopril 5 MG (PRINIVIL) TABLET PO SCH (09:33)
--- NOTE | 2018-04-09 10:52 | Physical Therapy Daily Note ---
PT Daily Note-Current Subjective Patient in wheelchair pre tx, agrees to PT, no complaints of pain. Appearance Patient in bed post tx with nurse call, phone, tray, all needs met. Mental Status Patient Orientation: Normal For Age Transfers Functional [place] Measure 0=Not Assessed/NA 4=Minimal Assistance 1=Total Assistance 5=Supervision or Setup 2=Maximal Assistance 6=Modified [place] 3=Moderate Assistance 7=Complete IndependenceIRFPAI Quality Coding Scale 6 Independent with activity with or without an assistive device 5 Patient requires set up or clean up by helper. Patient completes activity by themselves 4 Supervision or touching assist (CGA). [place] provide cues , steadying assist 3 The helper provides less than half the effort to complete the activity 2 The helper provides more than half the effort to complete the activity 1 Dependent. The helper does all the effort to complete an activity 7 Patient refused to complete or attempt activity 9 The patient did not perform the activity before the current illness or injury 88 Not attempted due to Medical conditions or safety concerns Transfers (B, C, W/C) (FIM): 4 Scootin Rollin Supine to/from Sit: 5 Sit to/from Stand: 4 Bed to/from Chair: 4 cues for safety and positioning of feet and hands, cues to reach for arm rest Weight Bearing Right Lower Extremity: Right Full Weight Bearing Left Lower Extremity: Left Full Weight Bearing Gait Training Gait (FIM): 2 Distance: 100'x4, 50' Gait Level of Assist: 4 Gait Persons Needed: 1 Gait Assistive Device: Cane Small Base Quad min assist for occasional LOB and weight shifting, slow, poor foot clearance on the left side, flexed left knee and with weight bearing left hip flexes Exercises NuStep Minutes: 15 NuStep Workload: 5 Treatments bed mobility and transfers, ambulation, functional strengthening Assessment Current Status: Fair Progress improving strength and endurance in left knee and hip but not enough to have full extension during ambulation PT Short Term Goals Short Term Goals Time Frame: April 10, 2018 Gait (FIM): 4 Distance (FIM): 3=150 ft Gait Distance Comment: 200' Gait Level of Assist: 4 Gait Assistive Device: Walker Osei Wheelchair (FIM): 5 Wheelchair distance (FIM): 3=150 ft Wheelchair Distance: 150'x2 Wheelchair Level of Assist: 5 Stairs (FIM): 2 # of Steps: 4 Stairs Level of Assist: 4 PT Prison Goals Prison Goals PT Industrial Conveyor Belt Repairer Goals Time Frame: April 30, 2018 Transfers (B,C,W/C) (FIM): 6 Sit to Lying (QC): 6 Lying-Sitting on Side/Bed(QC): 6 Sit to Stand (QC): 6 Rollin Roll Left to Right (QC): 6 Chair/Ngj-ms-Bdlcx Xfer(QC): 6 Car Transfer (QC): 6 Does the Patient Walk: Yes Gait (FIM): 5 Gait distance (FIM): 3=150 ft Distance: 250' Walk 10 feet (QC): 6 Walk 10ft-Uneven Surface(QC): 5 Walk 50ft with 2 Turns (QC): 6 Walk 150 ft (QC): 6 Gait Level of Assist: 5 Gait Assistive Device: Walker Osei Does the Pt use WC or Scooter?: Yes Wheelchair (FIM): 6 Wheelchair distance (FIM): 3=150 ft Wheelchair Level of Assist: 6 Wheel 50 feet with 2 turns (QC: 6 Stairs (FIM): 5 # of Steps: 12 1 Step (curb) (QC): 5 4 Steps (QC): 5 12 Steps (QC): 5 Stairs Level Of Assist: 5 Picking up an Object (QC): 6 PT Plan Problem List Problem List: Activity Tolerance, Functional Strength, Safety, Balance, Gait, Transfer, Bed Mobility, ROM Treatment/Plan Treatment Plan: Continue Plan of Care Treatment Plan: Bed Mobility, Concurrent Therapy, Education, Functional Activity Aristides, Functional Strength, Group Therapy, Gait, Safety, Therapeutic Exercise, Transfers Treatment Duration: April 30, 2018 Frequency: At least 5 of 7 days/Wk (IRF) Estimated Hrs Per Day: 1.5 hours per day Patient and/or Family Agrees t: Yes Safety Risks/Education Patient Education: Gait Training, Transfer Techniques, Correct Positioning, Safety Issues Teaching Recipient: Patient Teaching Methods: Demonstration, Discussion Response to Teaching: Reinforcement Needed Time/GCodes Time In: 1000 Time Out: 1100 Total Billed Treatment Time: 60 Total Billed Treatment 1 visit EX 15' GT 45' MARY KAY RYDER PT April 09, 2018 10:52
--- NOTE | 2018-04-09 13:27 | Occupational Ther Daily Note ---
OT Current Status-Daily Note Subjective Pt alert, lying in bed. Pt agreed to therapy. No c/o pain at this time. Just states he is going home . Mental Status/Objective Patient Orientation: Person, Place, Time, Situation Functional [place] Measure 0=Not Assessed/NA 4=Minimal Assistance 1=Total Assistance 5=Supervision or Setup 2=Maximal Assistance 6=Modified [place] 3=Moderate Assistance 7=Complete [place] ADL-Treatment Pt able to go from supine to sitting EOB with HOB slightly raised and bedrails. Pt then was able to don R shoe by self and assist to hold L LE on R knee to don R shoe. Pt then maneuvered w/c to therapy gym. Electrical stimulation to L wrist/hand and bicep. 4-5 strickland stimulation required to activate muscle groups. Pt is not demonstrating active movement in wrist or bicep areas this date. After therapy, pt sitting in w/c with call light/phone in reach. All needs met in room. Functional [place] Measure 0=Not Assessed/NA 4=Minimal Assistance 1=Total Assistance 5=Supervision or Setup 2=Maximal Assistance 6=Modified [place] 3=Moderate Assistance 7=Complete IndependenceIRFPAI Quality Coding Scale 6 Independent with activity with or without an assistive device 5 Patient requires set up or clean up by helper. Patient completes activity by themselves 4 Supervision or touching assist (CGA). [place] provide cues , steadying assist 3 The helper provides less than half the effort to complete the activity 2 The helper provides more than half the effort to complete the activity 1 Dependent. The helper does all the effort to complete an activity 7 Patient refused to complete or attempt activity 9 The patient did not perform the activity before the current illness or injury 88 Not attempted due to Medical conditions or safety concerns OT Short Term Goals Short Term Goals Time Frame: April 07, 2018 Bathing(FIM): 4 Upper Body Dressing(FIM): 4 Lower Body Dressing(FIM): 4 Toileting(FIM): 4 Shower Transfer(FIM): 4 Additional Short Term Goals: 2-Verbalize Understanding, 3-ImproveStrength/Aristides 1=Demonstrate adherence to instructed precautions during ADL tasks. 2=Patient will verbalize/demonstrate understanding of assistive devices/ modifications for ADL. 3=Patient will improve strength/tolerance for activity to enable patient to perform ADL's. OT Long-Term Goals Asbestos Hazard Abatement Worker Goals Time Frame: April 21, 2018 Eating (FIM): 6 Eating (QC): 6 Groomin Oral Hygiene (QC): 6 Bathing(FIM): 5 Shower/Bathe Self (QC): 5 Upper Body Dressing(FIM): 6 Upper Body Dressing (QC): 6 Lower Body Dressing(FIM): 5 Lower Body Dressing (QC): 5 On/Off Footwear (QC): 5 Toileting(FIM): 6 Toileting Hygiene (QC): 6 Toilet/Commode Transfer(FIM): 6 Toilet/Commode Transfer (QC): 6 Shower Transfer(FIM): 5 Comprehension(FIM): 7 (MET) Expression (FIM): 7 (MET) Social Interaction(FIM): 7 (MET) Problem Solving(FIM): 7 (MET) Memory(FIM): 7 (MET) Additional Goals: 2-Verbalize Understanding, 3-ImproveStrength/Aristides 1=Demonstrate adherence to instructed precautions during ADL tasks. 2=Patient will verbalize/demonstrate understanding of assistive devices/ modifications for ADL. 3=Patient will improve strength/tolerance for activity to enable patient to perform ADL's. OT Education/Plan Discharge Recommendations Plan/Recommendations: Continue POC Treatment Plan/Plan of Care Patient would benefit from OT for education, treatment and training to promote independence in ADL's, mobility, safety and/or upper extremity function for ADL' s. Plan of Care: ADL Retraining, Functional Mobility, Group Exercise/Act as Ind, UE Funct Exercise/Act, UE Neuromus Re-Ed/Coord Treatment Duration: April 21, 2018 Frequency: At least 5 of 7 days/Wk (IRF) Estimated Hrs Per Day: 1.5 hours per day Agreement: Yes Rehab Potential: Good Time/GCodes Start Time: 13:00 Stop Time: 13:30 Total Time Billed (hr/min): 30 Billed Treatment Time 1 visit-FA 1 (15 min) NM 1 (15 min) CLARISSA GILBERT April 09, 2018 13:27
--- NOTE | 2018-04-09 14:26 | Physical Therapy Daily Note ---
PT Daily Note-Current Subjective Agreeable to Pt. Pain Numeric Pain Scale: 0-No Pain Location: No Pain Reported Mental Status Patient Orientation: Person, Place, Time, Situation Transfers Functional [place] Measure 0=Not Assessed/NA 4=Minimal Assistance 1=Total Assistance 5=Supervision or Setup 2=Maximal Assistance 6=Modified [place] 3=Moderate Assistance 7=Complete IndependenceIRFPAI Quality Coding Scale 6 Independent with activity with or without an assistive device 5 Patient requires set up or clean up by helper. Patient completes activity by themselves 4 Supervision or touching assist (CGA). [place] provide cues , steadying assist 3 The helper provides less than half the effort to complete the activity 2 The helper provides more than half the effort to complete the activity 1 Dependent. The helper does all the effort to complete an activity 7 Patient refused to complete or attempt activity 9 The patient did not perform the activity before the current illness or injury 88 Not attempted due to Medical conditions or safety concerns Pt is able to transfer in/out of bed mod indep. He performed SPT wc to bed with SBA. Sit to stand with SB-CGA. Weight Bearing Right Lower Extremity: Right Full Weight Bearing Left Lower Extremity: Left Full Weight Bearing Gait Training Gait Assistive Device: Walker Osei Pt ambulated 50 ft x 4 and 25 ft x 1 wtih hemiwalker with close CGA with 1 LoB that required rigid assist to recover. Exercises NuStep Minutes: 10 NuStep Workload: 5 (LE strength for improved gait and transfers) Assessment Current Status: Good Progress Ankle control on the left is still impaired but is improving. PT Short Term Goals Short Term Goals Time Frame: April 10, 2018 Gait (FIM): 4 Distance (FIM): 3=150 ft Gait Distance Comment: 200' Gait Level of Assist: 4 Gait Assistive Device: Walker Osei Wheelchair (FIM): 5 (met) Wheelchair distance (FIM): 3=150 ft Wheelchair Distance: 150'x2 Wheelchair Level of Assist: 5 Stairs (FIM): 2 # of Steps: 4 Stairs Level of Assist: 4 PT Irrigation Installation Specialist Goals Shelter Goals PT Shelter Goals Time Frame: April 30, 2018 Transfers (B,C,W/C) (FIM): 6 Sit to Lying (QC): 6 Lying-Sitting on Side/Bed(QC): 6 Sit to Stand (QC): 6 Rollin Roll Left to Right (QC): 6 Chair/Rcj-gz-Tzhun Xfer(QC): 6 Car Transfer (QC): 6 Does the Patient Walk: Yes Gait (FIM): 5 Gait distance (FIM): 3=150 ft Distance: 250' Walk 10 feet (QC): 6 Walk 10ft-Uneven Surface(QC): 5 Walk 50ft with 2 Turns (QC): 6 Walk 150 ft (QC): 6 Gait Level of Assist: 5 Gait Assistive Device: Walker Oesi Does the Pt use WC or Scooter?: Yes Wheelchair (FIM): 6 Wheelchair distance (FIM): 3=150 ft Wheelchair Level of Assist: 6 Wheel 50 feet with 2 turns (QC: 6 Stairs (FIM): 5 # of Steps: 12 1 Step (curb) (QC): 5 4 Steps (QC): 5 12 Steps (QC): 5 Stairs Level Of Assist: 5 Picking up an Object (QC): 6 PT Plan Problem List Problem List: Activity Tolerance, Functional Strength, Safety, Balance, Gait, Transfer Treatment/Plan Treatment Plan: Continue Plan of Care Treatment Plan: Bed Mobility, Concurrent Therapy, Education, Functional Activity Aristides, Functional Strength, Group Therapy, Gait, Safety, Therapeutic Exercise, Transfers Treatment Duration: April 30, 2018 Frequency: At least 5 of 7 days/Wk (IRF) Estimated Hrs Per Day: 1.5 hours per day Patient and/or Family Agrees t: Yes Safety Risks/Education Patient Education: Safety Issues Teaching Recipient: Patient Teaching Methods: Discussion Response to Teaching: Reinforcement Needed Time/GCodes Time In: 1345 Time Out: 1417 Total Billed Treatment Time: 32 Total Billed Treatment visit GT 22 EX 10 CLARISSA HENSLEY PT April 09, 2018 14:26
[2018-04-09] MEDS: RIVAROXABAN 20 MG TABLET (XARELTO) PO SCH (17:20)
--- NOTE | 2018-04-09 19:43 | PM & R (SOAP) Progress Note ---
Subjective This was a face to face visit with the patient. Date Seen by Provider: April 09, 2018 Time Seen by Provider: 10:45 Subjective/Events-last exam Patient was seen on unit this AM in common self propelling his w/c Independently Patient CGA for transfers Review of Systems Neurological: Weakness Objective Physician Exam Last Set of Vital Signs Vital Signs Date Time Temp Pulse Resp B/P (MAP) Pulse Ox O2 Delivery O2 Flow Rate FiO2 04/09/18 09:00 Room Air 04/09/18 05:28 97.5 85 20 136/72 (93) 96 Capillary Refill : I&O Intake and Output 04/08/18 23:59 Intake Total 1330 ml Output Total 1300 ml Balance 30 ml Intake Oral 1330 ml Output Urine Total 1300 ml General: Alert, Oriented X3, Cooperative, No Acute Distress HEENT: Atraumatic, PERRLA, EOMI, Mucous Memb Moist/[place], Other (Coughing with swaloowing liquids) Neck: Supple, No JVD Lungs: Clear to Auscultation Heart: Regular Rate Abdomen: Normal Bowel Sounds, Soft, No Tenderness Extremities: No Edema Neuro: Other (Left HP) Assessment/Plan Assessment and Plan 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
[2018-04-09] MEDS: ATORVASTATIN 80 MG (LIPITOR) TABLET PO SCH (19:50)
[2018-04-09 22:00] VITALS: BP 110/65
[2018-04-10 06:13] VITALS: BP_SYST 121; BP_SYST 144; BP_DIAS 77; BP_DIAS 90
[2018-04-10] MEDS: lisINopril 5 MG (PRINIVIL) TABLET PO SCH (08:05)
[2018-04-10] MEDS: ASPIRIN E.C. 81 MG (ECOTRIN) TAB PO SCH (08:05)
--- NOTE | 2018-04-10 08:23 | Progress Note (SOAP) ---
Subjective Time Seen by Provider: 08:20 Subjective/Events-last exam Patient feels he is doing better. Patient much steadier on gait. Patient able to stand by himself. Objective Exam Vital Signs Date Time Temp Pulse Resp B/P (MAP) Pulse Ox O2 Delivery O2 Flow Rate FiO2 04/10/18 06:13 97.1 76 18 121/77 (92) 98 Room Air 04/09/18 22:00 96.9 85 14 110/65 (80) 95 Room Air 04/09/18 20:40 Room Air 04/09/18 09:00 Room Air I & O 04/10/18 07:00 Intake Total 1575 ml Output Total 1550 ml Balance 25 ml Capillary Refill : General Appearance: No Apparent Distress, Thin HEENT: Normal ENT Inspection Neck: Normal Inspection Respiratory: No Accessory Muscle Use, No Respiratory Distress Assessment/Plan Assessment/Plan Assess & Plan/Chief Complaint CVA history of tobaccoism History of drinking. . 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 CVA. History of tobaccoism. History of drinking. Patient ready for PT and OT. . 04/03/18. CVA. History of tobaccoism. Patient working to get better. . 04/06/18. Patient improving. Patient moving left leg better. Patient swing with left. . 04/07/18. CVA. Tobacco history. Patient still needing help but improving. . 04/08/18. CVA. Tobacco history. Patient able to get his pants today. Patient having difficulty with upper extremity. . 04/09/18. CVA. Tobacco history. Patient A work IN progress. . 8. CVA. Tobacco history. Patient more steady on his feet. Clinical Quality Measures DVT/VTE Risk/Contraindication: Risk Factor Score Per Nursin RFS Level Per Nursing on Admit: 4+=Very High MARITZA ROE DO April 10, 2018 08:23
--- NOTE | 2018-04-10 10:51 | Physical Therapy Daily Note ---
PT Daily Note-Current Subjective Patient in wheelchair pre tx, agrees to PT, no complaints of pain. Appearance Patient in wheelchair at bedside post tx with nurse call, phone, tray, all needs met. Mental Status Patient Orientation: Normal For Age Transfers Functional [place] Measure 0=Not Assessed/NA 4=Minimal Assistance 1=Total Assistance 5=Supervision or Setup 2=Maximal Assistance 6=Modified [place] 3=Moderate Assistance 7=Complete IndependenceIRFPAI Quality Coding Scale 6 Independent with activity with or without an assistive device 5 Patient requires set up or clean up by helper. Patient completes activity by themselves 4 Supervision or touching assist (CGA). [place] provide cues , steadying assist 3 The helper provides less than half the effort to complete the activity 2 The helper provides more than half the effort to complete the activity 1 Dependent. The helper does all the effort to complete an activity 7 Patient refused to complete or attempt activity 9 The patient did not perform the activity before the current illness or injury 88 Not attempted due to Medical conditions or safety concerns Transfers (B, C, W/C) (FIM): 4 Sit to/from Stand: 4 Bed to/from Chair: 4 Patient had a little difficulty turning to the right side to sit, needed assist to keep balance and cues for foot placement. Weight Bearing Right Lower Extremity: Right Full Weight Bearing Left Lower Extremity: Left Full Weight Bearing Gait Training Gait (FIM): 4 Distance: 160'x2, 100', 50' Gait Level of Assist: 4 Gait Persons Needed: 1 Gait Assistive Device: Cane Small Base Quad Patient ambulated 160' with a quad cane with min assist for balance. He occasionally loses his balance to the left side especially if he doesn't weight shift enough and tries to step with his left leg. Patient ambulates slowly and needs rest breaks. His left leg fatigues and has trouble supporting his weight. Exercises NuStep Minutes: 15 NuStep Workload: 5 Treatments transfers, ambulation, functional strengthening Assessment Current Status: Fair Progress improved ambulation and endurance PT Short Term Goals Short Term Goals Time Frame: April 10, 2018 Gait (FIM): 4 Distance (FIM): 3=150 ft Gait Distance Comment: 200' Gait Level of Assist: 4 Gait Assistive Device: Walker Osei Wheelchair (FIM): 5 (met) Wheelchair distance (FIM): 3=150 ft Wheelchair Distance: 150'x2 Wheelchair Level of Assist: 5 Stairs (FIM): 2 # of Steps: 4 Stairs Level of Assist: 4 PT Jail Goals Supply Clerk Goals PT Jail Goals Time Frame: April 30, 2018 Transfers (B,C,W/C) (FIM): 6 Sit to Lying (QC): 6 Lying-Sitting on Side/Bed(QC): 6 Sit to Stand (QC): 6 Rollin Roll Left to Right (QC): 6 Chair/Vig-fm-Dsvnw Xfer(QC): 6 Car Transfer (QC): 6 Does the Patient Walk: Yes Gait (FIM): 5 Gait distance (FIM): 3=150 ft Distance: 250' Walk 10 feet (QC): 6 Walk 10ft-Uneven Surface(QC): 5 Walk 50ft with 2 Turns (QC): 6 Walk 150 ft (QC): 6 Gait Level of Assist: 5 Gait Assistive Device: Walker Osei Does the Pt use WC or Scooter?: Yes Wheelchair (FIM): 6 Wheelchair distance (FIM): 3=150 ft Wheelchair Level of Assist: 6 Wheel 50 feet with 2 turns (QC: 6 Stairs (FIM): 5 # of Steps: 12 1 Step (curb) (QC): 5 4 Steps (QC): 5 12 Steps (QC): 5 Stairs Level Of Assist: 5 Picking up an Object (QC): 6 PT Plan Problem List Problem List: Activity Tolerance, Functional Strength, Safety, Balance, Gait, Transfer, Bed Mobility Treatment/Plan Treatment Plan: Continue Plan of Care Treatment Plan: Bed Mobility, Concurrent Therapy, Education, Functional Activity Aristides, Functional Strength, Group Therapy, Gait, Safety, Therapeutic Exercise, Transfers Treatment Duration: April 30, 2018 Frequency: At least 5 of 7 days/Wk (IRF) Estimated Hrs Per Day: 1.5 hours per day Patient and/or Family Agrees t: Yes Safety Risks/Education Patient Education: Gait Training, Transfer Techniques, Correct Positioning, Safety Issues Teaching Recipient: Patient Teaching Methods: Demonstration, Discussion Response to Teaching: Reinforcement Needed Time/GCodes Time In: 1000 Time Out: 1100 Total Billed Treatment Time: 60 Total Billed Treatment 1 visit EX 15' GT 45' MARY KAY RYDER PT April 10, 2018 10:51
--- NOTE | 2018-04-10 11:47 | Occupational Ther Daily Note ---
OT Current Status-Daily Note Subjective Pt in bed, agrees to treatment. Pt has no c/o pain. States he is looking forward to going home next week. Mental Status/Objective Functional [place] Measure 0=Not Assessed/NA 4=Minimal Assistance 1=Total Assistance 5=Supervision or Setup 2=Maximal Assistance 6=Modified [place] 3=Moderate Assistance 7=Complete [place] ADL-Treatment Pt supine to sit with modified independence. Transfer to w/c with CGA for balance. Pt able to propel w/c to bathroom without assistance. Transfer w/c <-> shower bench with CGA for balance using grab bar for safety. Pt doffed shirt and socks without assistance. CGA for balance while doffing shorts and underwear. Pt able to complete bathing tasks with supervision using hand held shower. Don pullover shirt with set up. Pt able to thread bilateral LE into underwear and shorts without assistance. Stood with CGA for balance during pant hike. Pt leans on wall for balance. Pt able to zip and button shorts with SBA while seated in w/c. Don socks with and shoes with SBA. Increased time to don left shoe. Grooming tasks completed with modified independence while seated at sink. Pt retrieved dirty clothing and transported them to laundry room via w/c. Pt placed soap and clothes into washer. Stood with close supervision while managing settings on w/c. W/c mobility to shower room without assist. Reviewed tub transfer using shower chair that is similar to what pt has at home. Pt transferred w/c <-> tub using shower chair x3 trials with minimal assistance and cues for safety. Uses grab bar for balance and safety. Pt returned to room, sitting in w/c with needs met after session. Functional [place] Measure 0=Not Assessed/NA 4=Minimal Assistance 1=Total Assistance 5=Supervision or Setup 2=Maximal Assistance 6=Modified [place] 3=Moderate Assistance 7=Complete IndependenceIRFPAI Quality Coding Scale 6 Independent with activity with or without an assistive device 5 Patient requires set up or clean up by helper. Patient completes activity by themselves 4 Supervision or touching assist (CGA). [place] provide cues , steadying assist 3 The helper provides less than half the effort to complete the activity 2 The helper provides more than half the effort to complete the activity 1 Dependent. The helper does all the effort to complete an activity 7 Patient refused to complete or attempt activity 9 The patient did not perform the activity before the current illness or injury 88 Not attempted due to Medical conditions or safety concerns Grooming (FIM): 6 Oral Hygiene (QC): 6 Bathing (FIM): 5 Shower/Bathe Self (QC): 4 Upper Body (FIM): 5 Upper Body Dressing (QC): 5 Lower Body Dressing (FIM): 4 Lower Body Dressing (QC): 4 On/Off Footwear (QC): 5 Shower Transfer(FIM): 4 Education OT Patient Education: Safety issues Teaching Recipient: Patient Teaching Methods: Discussion Response to Teaching: Verbalize Understanding OT Short Term Goals Short Term Goals Time Frame: April 07, 2018 Bathing(FIM): 4 Upper Body Dressing(FIM): 4 Lower Body Dressing(FIM): 4 Toileting(FIM): 4 Shower Transfer(FIM): 4 Additional Short Term Goals: 2-Verbalize Understanding, 3-ImproveStrength/Aristides 1=Demonstrate adherence to instructed precautions during ADL tasks. 2=Patient will verbalize/demonstrate understanding of assistive devices/ modifications for ADL. 3=Patient will improve strength/tolerance for activity to enable patient to perform ADL's. OT Trouble Locater Goals Trouble Locater Goals Time Frame: April 21, 2018 Eating (FIM): 6 Eating (QC): 6 Groomin Oral Hygiene (QC): 6 Bathing(FIM): 5 Shower/Bathe Self (QC): 5 Upper Body Dressing(FIM): 6 Upper Body Dressing (QC): 6 Lower Body Dressing(FIM): 5 Lower Body Dressing (QC): 5 On/Off Footwear (QC): 5 Toileting(FIM): 6 Toileting Hygiene (QC): 6 Toilet/Commode Transfer(FIM): 6 Toilet/Commode Transfer (QC): 6 Shower Transfer(FIM): 5 Comprehension(FIM): 7 (MET) Expression (FIM): 7 (MET) Social Interaction(FIM): 7 (MET) Problem Solving(FIM): 7 (MET) Memory(FIM): 7 (MET) Additional Goals: 2-Verbalize Understanding, 3-ImproveStrength/Aristides 1=Demonstrate adherence to instructed precautions during ADL tasks. 2=Patient will verbalize/demonstrate understanding of assistive devices/ modifications for ADL. 3=Patient will improve strength/tolerance for activity to enable patient to perform ADL's. OT Education/Plan Discharge Recommendations Plan/Recommendations: Continue POC Treatment Plan/Plan of Care Patient would benefit from OT for education, treatment and training to promote independence in ADL's, mobility, safety and/or upper extremity function for ADL' s. Plan of Care: ADL Retraining, Functional Mobility, Group Exercise/Act as Ind, UE Funct Exercise/Act, UE Neuromus Re-Ed/Coord Treatment Duration: April 21, 2018 Frequency: At least 5 of 7 days/Wk (IRF) Estimated Hrs Per Day: 1.5 hours per day Agreement: Yes Rehab Potential: Good Time/GCodes Start Time: 08:00 Stop Time: 09:00 Total Time Billed (hr/min): 60 Billed Treatment Time 1 visit, ADLx4(60minutes) GUSTAVO IZAGUIRRE OT April 10, 2018 11:47
--- NOTE | 2018-04-10 14:44 | Therapy Group Daily Note ---
Therapy Daily Group Note Patient Education Topic Fall Prevention Exercises LE Seated Exercise, UE Exercise Other/Notes Pt. participated in group PT OT session this date. Pt. came went ambulating with ced walker. Pt. required CGA. Pts were educated in the rules and practices of acute rehab, ie, schedules, requirements and expectations. Pt. was social, shared his name, home town and todays " question of the day" their favorite pie. Pts participated in seated U&L extremity therex in seated position with some patients (this pt included) instructing the exercise themselves utilizing illustrated exercise cards they read to group as they demonstrated the exercise. Pt. to room after group with CGA to bed. call lopez at [facility]. Start Time: 13:00 Stop Time: 14:15 Total Billed Treatment Time: 75 Total Billed Treatment 1,GRP JENNIFER ASH KINDERGARTEN TEACHER April 10, 2018 14:44
[2018-04-10] MEDS: RIVAROXABAN 20 MG TABLET (XARELTO) PO SCH (17:08)
[2018-04-10 18:00] VITALS: BP 128/73
[2018-04-10] MEDS: ATORVASTATIN 80 MG (LIPITOR) TABLET PO SCH (20:53)
[2018-04-11 06:00] VITALS: BP 115/64
[2018-04-11] MEDS: ASPIRIN E.C. 81 MG (ECOTRIN) TAB PO SCH (09:09)
[2018-04-11] MEDS: lisINopril 5 MG (PRINIVIL) TABLET PO SCH (09:09)
--- NOTE | 2018-04-11 12:17 | Physical Therapy Daily Note ---
PT Daily Note-Current Subjective Pt. agrees to Rx. States he wants to get up and move a little. Pain Numeric Pain Scale: 0-No Pain Mental Status Patient Orientation: Normal For Age Transfers Functional [place] Measure 0=Not Assessed/NA 4=Minimal Assistance 1=Total Assistance 5=Supervision or Setup 2=Maximal Assistance 6=Modified [place] 3=Moderate Assistance 7=Complete IndependenceIRFPAI Quality Coding Scale 6 Independent with activity with or without an assistive device 5 Patient requires set up or clean up by helper. Patient completes activity by themselves 4 Supervision or touching assist (CGA). [place] provide cues , steadying assist 3 The helper provides less than half the effort to complete the activity 2 The helper provides more than half the effort to complete the activity 1 Dependent. The helper does all the effort to complete an activity 7 Patient refused to complete or attempt activity 9 The patient did not perform the activity before the current illness or injury 88 Not attempted due to Medical conditions or safety concerns Transfers (B, C, W/C) (FIM): 6 Scootin Rollin Supine to/from Sit: 6 Sit to/from Stand: 6 Weight Bearing Right Lower Extremity: Right Full Weight Bearing Left Lower Extremity: Left Full Weight Bearing Gait Training Does the Patient Walk?: Yes Gait (FIM): 4 Distance (FIM): 3=150 ft (170x2) Gait Level of Assist: 4 Gait Persons Needed: 1 Gait Assistive Device: Cane Small Base Quad required min assist , cues to stabilize left knee and for broadening SILKE for better balance Exercises Seated Therapy Exercises: Ankle pumps, Sit to stand, Long arc quads, Hip flexion Seated Reps: 15 Assessment Current Status: Good Progress PT Short Term Goals Short Term Goals Time Frame: April 10, 2018 Gait (FIM): 4 Distance (FIM): 3=150 ft Gait Distance Comment: 200' Gait Level of Assist: 4 Gait Assistive Device: Walker Osei Wheelchair (FIM): 5 (met) Wheelchair distance (FIM): 3=150 ft Wheelchair Distance: 150'x2 Wheelchair Level of Assist: 5 Stairs (FIM): 2 # of Steps: 4 Stairs Level of Assist: 4 PT Residential Goals Chief Engineer Drilling And Recovery Goals PT Residential Goals Time Frame: April 30, 2018 Transfers (B,C,W/C) (FIM): 6 Sit to Lying (QC): 6 Lying-Sitting on Side/Bed(QC): 6 Sit to Stand (QC): 6 Rollin Roll Left to Right (QC): 6 Chair/Fzc-ul-Isfjh Xfer(QC): 6 Car Transfer (QC): 6 Does the Patient Walk: Yes Gait (FIM): 5 Gait distance (FIM): 3=150 ft Distance: 250' Walk 10 feet (QC): 6 Walk 10ft-Uneven Surface(QC): 5 Walk 50ft with 2 Turns (QC): 6 Walk 150 ft (QC): 6 Gait Level of Assist: 5 Gait Assistive Device: Walker Osei Does the Pt use WC or Scooter?: Yes Wheelchair (FIM): 6 Wheelchair distance (FIM): 3=150 ft Wheelchair Level of Assist: 6 Wheel 50 feet with 2 turns (QC: 6 Stairs (FIM): 5 # of Steps: 12 1 Step (curb) (QC): 5 4 Steps (QC): 5 12 Steps (QC): 5 Stairs Level Of Assist: 5 Picking up an Object (QC): 6 PT Plan Treatment/Plan Treatment Plan: Continue Plan of Care Treatment Plan: Bed Mobility, Concurrent Therapy, Education, Functional Activity Aristides, Functional Strength, Group Therapy, Gait, Safety, Therapeutic Exercise, Transfers Treatment Duration: April 30, 2018 Frequency: At least 5 of 7 days/Wk (IRF) Estimated Hrs Per Day: 1.5 hours per day Patient and/or Family Agrees t: Yes Safety Risks/Education Patient Education: Gait Training, Transfer Techniques Teaching Recipient: Patient Teaching Methods: Demonstration, Discussion Response to Teaching: Verbalize Understanding, Return Demonstration, Reinforcement Needed Time/GCodes Time In: 1030 Time Out: 1055 Total Billed Treatment Time: 25 Total Billed Treatment 1,GT25m G Codes Necessary: JENNIFER Goodwin BI DATA ARCHITECT April 11, 2018 12:17
[2018-04-11 16:46] VITALS: BP 130/78
[2018-04-11] MEDS: RIVAROXABAN 20 MG TABLET (XARELTO) PO SCH (17:20)
[2018-04-11] MEDS: ATORVASTATIN 80 MG (LIPITOR) TABLET PO SCH (20:56)
[2018-04-12 05:25] VITALS: BP 119/62
[2018-04-12] MEDS: ASPIRIN E.C. 81 MG (ECOTRIN) TAB PO SCH (08:22)
[2018-04-12] MEDS: lisINopril 5 MG (PRINIVIL) TABLET PO SCH (08:22)
[2018-04-12] MEDS: RIVAROXABAN 20 MG TABLET (XARELTO) PO SCH (16:55)
[2018-04-12 17:35] VITALS: BP 131/75
[2018-04-12] MEDS: ATORVASTATIN 80 MG (LIPITOR) TABLET PO SCH (20:12)
[2018-04-13 05:19] VITALS: BP 126/80
--- NOTE | 2018-04-13 08:21 | Progress Note (SOAP) ---
Subjective Time Seen by Provider: 08:20 Subjective/Events-last exam CVA. Patient doing better and feeling better. Patient feel more comfortable with his own skin Objective Exam Vital Signs Date Time Temp Pulse Resp B/P (MAP) Pulse Ox O2 Delivery O2 Flow Rate FiO2 04/13/18 05:19 96.9 69 16 126/80 (95) 98 04/12/18 21:00 Room Air 04/12/18 17:35 96.0 80 14 131/75 (93) 97 04/12/18 09:52 Room Air I & O 04/13/18 07:00 Intake Total 1620 ml Output Total 1450 ml Balance 170 ml Capillary Refill : General Appearance: No Apparent Distress, Thin HEENT: Normal ENT Inspection Assessment/Plan Assessment/Plan Assess & Plan/Chief Complaint CVA history of tobaccoism History of drinking. . 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 CVA. History of tobaccoism. History of drinking. Patient ready for PT and OT. . 04/03/18. CVA. History of tobaccoism. Patient working to get better. . 04/06/18. Patient improving. Patient moving left leg better. Patient swing with left. . 04/07/18. CVA. Tobacco history. Patient still needing help but improving. . 04/08/18. CVA. Tobacco history. Patient able to get his pants today. Patient having difficulty with upper extremity. . 04/09/18. CVA. Tobacco history. Patient A work IN progress. . 1118. CVA. Tobacco history. Patient more steady on his feet.. . *04/13/18. CVA. Tobacco usage. Patient feels he is improving which he is Clinical Quality Measures DVT/VTE Risk/Contraindication: Risk Factor Score Per Nursin RFS Level Per Nursing on Admit: 4+=Very High MARITZA ROE DO April 13, 2018 08:21
[2018-04-13] MEDS: ASPIRIN E.C. 81 MG (ECOTRIN) TAB PO SCH (08:48)
[2018-04-13] MEDS: lisINopril 5 MG (PRINIVIL) TABLET PO SCH (08:48)
--- NOTE | 2018-04-13 11:56 | Physical Therapy Daily Note ---
PT Daily Note-Current Subjective Patient in bed pre tx, agrees to PT, no complaints of pain. Appearance Patient in bed post tx with nurse call, phone, tray, all needs met. Mental Status Patient Orientation: Normal For Age Transfers Functional [place] Measure 0=Not Assessed/NA 4=Minimal Assistance 1=Total Assistance 5=Supervision or Setup 2=Maximal Assistance 6=Modified [place] 3=Moderate Assistance 7=Complete IndependenceIRFPAI Quality Coding Scale 6 Independent with activity with or without an assistive device 5 Patient requires set up or clean up by helper. Patient completes activity by themselves 4 Supervision or touching assist (CGA). [place] provide cues , steadying assist 3 The helper provides less than half the effort to complete the activity 2 The helper provides more than half the effort to complete the activity 1 Dependent. The helper does all the effort to complete an activity 7 Patient refused to complete or attempt activity 9 The patient did not perform the activity before the current illness or injury 88 Not attempted due to Medical conditions or safety concerns Transfers (B, C, W/C) (FIM): 4 Scootin Rollin Supine to/from Sit: 6 Sit to/from Stand: 4 Bed to/from Chair: 4 Patient performs bed mobility with mod I, he has some difficulty with sit to supine but can do it without assist. CGA for sit to stand and transfers. Occasional cues for hand placement. Weight Bearing Right Lower Extremity: Right Full Weight Bearing Left Lower Extremity: Left Full Weight Bearing Gait Training Gait (FIM): 4 Distance: 150'x2 Gait Level of Assist: 4 Gait Persons Needed: 1 Gait Assistive Device: Cane Small Base Quad Min assist for occasional LOB to the left side. On the second walk he did not lose his balance. Poor foot clearance on the left side. Exercises Seated Therapy Exercises: Long arc quads Seated Reps: 20 Standing: Hip Abduction, Marching, Mini squats Standing Reps: 20 lunges x15 (left in front) NuStep Minutes: 15 NuStep Workload: 5 Treatments bed mobility and transfers, ambulation, functional strengthening Assessment Current Status: Fair Progress improving balance and endurance PT Short Term Goals Short Term Goals Time Frame: April 10, 2018 Gait (FIM): 4 Distance (FIM): 3=150 ft Gait Distance Comment: 200' Gait Level of Assist: 4 Gait Assistive Device: Walker Osei Wheelchair (FIM): 5 (met) Wheelchair distance (FIM): 3=150 ft Wheelchair Distance: 150'x2 Wheelchair Level of Assist: 5 Stairs (FIM): 2 # of Steps: 4 Stairs Level of Assist: 4 PT Alf Goals Alf Goals PT Alf Goals Time Frame: April 30, 2018 Transfers (B,C,W/C) (FIM): 6 Sit to Lying (QC): 6 Lying-Sitting on Side/Bed(QC): 6 Sit to Stand (QC): 6 Rollin Roll Left to Right (QC): 6 Chair/Pjw-lr-Lonkw Xfer(QC): 6 Car Transfer (QC): 6 Does the Patient Walk: Yes Gait (FIM): 5 Gait distance (FIM): 3=150 ft Distance: 250' Walk 10 feet (QC): 6 Walk 10ft-Uneven Surface(QC): 5 Walk 50ft with 2 Turns (QC): 6 Walk 150 ft (QC): 6 Gait Level of Assist: 5 Gait Assistive Device: Walker Osei Does the Pt use WC or Scooter?: Yes Wheelchair (FIM): 6 Wheelchair distance (FIM): 3=150 ft Wheelchair Level of Assist: 6 Wheel 50 feet with 2 turns (QC: 6 Stairs (FIM): 5 # of Steps: 12 1 Step (curb) (QC): 5 4 Steps (QC): 5 12 Steps (QC): 5 Stairs Level Of Assist: 5 Picking up an Object (QC): 6 PT Plan Problem List Problem List: Activity Tolerance, Functional Strength, Safety, Balance, Gait, Transfer, Bed Mobility, ROM Treatment/Plan Treatment Plan: Continue Plan of Care Treatment Plan: Bed Mobility, Concurrent Therapy, Education, Functional Activity Aristides, Functional Strength, Group Therapy, Gait, Safety, Therapeutic Exercise, Transfers Treatment Duration: April 30, 2018 Frequency: At least 5 of 7 days/Wk (IRF) Estimated Hrs Per Day: 1.5 hours per day Patient and/or Family Agrees t: Yes Safety Risks/Education Patient Education: Gait Training, Transfer Techniques, Correct Positioning, Safety Issues Teaching Recipient: Patient Teaching Methods: Demonstration, Discussion Response to Teaching: Reinforcement Needed Time/GCodes Time In: 1100 Time Out: 1200 Total Billed Treatment Time: 60 Total Billed Treatment 1 visit GT 30' EX 30' MARY KAY RYDER PT April 13, 2018 11:56
--- NOTE | 2018-04-13 12:29 | Occupational Ther Daily Note ---
OT Current Status-Daily Note Subjective Pt alert, lying in bed. Pt agreed to therapy. No c/o pain at this time. Pt states he wants to go home . Mental Status/Objective Patient Orientation: Person, Place, Time, Situation Functional [place] Measure 0=Not Assessed/NA 4=Minimal Assistance 1=Total Assistance 5=Supervision or Setup 2=Maximal Assistance 6=Modified [place] 3=Moderate Assistance 7=Complete [place] ADL-Treatment Pt was able to go from supine to sitting EOB by self. Supervision with stand pivot transfer from bed to w/c. Pt then maneuvered w/c to bathroom and completed grooming. Pt transferred from w/c to shower bench using grabbars with supervision. Pt stood and leaned against wall to don/doff pants with SBA. Pt was able to complete own bathing using shower bench, hand held shower and grabbars. Pt dried self. Donned/doffed shirt, socks and shoes by self. Functional [place] Measure 0=Not Assessed/NA 4=Minimal Assistance 1=Total Assistance 5=Supervision or Setup 2=Maximal Assistance 6=Modified [place] 3=Moderate Assistance 7=Complete IndependenceIRFPAI Quality Coding Scale 6 Independent with activity with or without an assistive device 5 Patient requires set up or clean up by helper. Patient completes activity by themselves 4 Supervision or touching assist (CGA). [place] provide cues , steadying assist 3 The helper provides less than half the effort to complete the activity 2 The helper provides more than half the effort to complete the activity 1 Dependent. The helper does all the effort to complete an activity 7 Patient refused to complete or attempt activity 9 The patient did not perform the activity before the current illness or injury 88 Not attempted due to Medical conditions or safety concerns Grooming (FIM): 6 Oral Hygiene (QC): 6 Bathing (FIM): 5 Shower/Bathe Self (QC): 4 Upper Body (FIM): 6 Upper Body Dressing (QC): 6 Lower Body Dressing (FIM): 5 Lower Body Dressing (QC): 4 On/Off Footwear (QC): 6 Shower Transfer(FIM): 5 Other Treatment Pt was able to complete setups lying on therapy mat, 3 sets 10 reps. Pt demonstrated minimal movement in bicep and tricep. After therapy, pt sitting in w/c with call light/phone in reach. All needs met in room. OT Short Term Goals Short Term Goals Time Frame: April 07, 2018 Bathing(FIM): 4 Upper Body Dressing(FIM): 4 Lower Body Dressing(FIM): 4 Toileting(FIM): 4 Shower Transfer(FIM): 4 Additional Short Term Goals: 2-Verbalize Understanding, 3-ImproveStrength/Aristides 1=Demonstrate adherence to instructed precautions during ADL tasks. 2=Patient will verbalize/demonstrate understanding of assistive devices/ modifications for ADL. 3=Patient will improve strength/tolerance for activity to enable patient to perform ADL's. OT Mcc Goals Director Of Education And Training Goals Time Frame: April 21, 2018 Eating (FIM): 6 Eating (QC): 6 Groomin Oral Hygiene (QC): 6 Bathing(FIM): 5 Shower/Bathe Self (QC): 5 Upper Body Dressing(FIM): 6 Upper Body Dressing (QC): 6 Lower Body Dressing(FIM): 5 Lower Body Dressing (QC): 5 On/Off Footwear (QC): 5 Toileting(FIM): 6 Toileting Hygiene (QC): 6 Toilet/Commode Transfer(FIM): 6 Toilet/Commode Transfer (QC): 6 Shower Transfer(FIM): 5 Comprehension(FIM): 7 (MET) Expression (FIM): 7 (MET) Social Interaction(FIM): 7 (MET) Problem Solving(FIM): 7 (MET) Memory(FIM): 7 (MET) Additional Goals: 2-Verbalize Understanding, 3-ImproveStrength/Aristides 1=Demonstrate adherence to instructed precautions during ADL tasks. 2=Patient will verbalize/demonstrate understanding of assistive devices/ modifications for ADL. 3=Patient will improve strength/tolerance for activity to enable patient to perform ADL's. OT Education/Plan Discharge Recommendations Plan/Recommendations: Continue POC Treatment Plan/Plan of Care Patient would benefit from OT for education, treatment and training to promote independence in ADL's, mobility, safety and/or upper extremity function for ADL' s. Plan of Care: ADL Retraining, Functional Mobility, Group Exercise/Act as Ind, UE Funct Exercise/Act, UE Neuromus Re-Ed/Coord Treatment Duration: April 21, 2018 Frequency: At least 5 of 7 days/Wk (IRF) Estimated Hrs Per Day: 1.5 hours per day Agreement: Yes Rehab Potential: Good Time/GCodes Start Time: 08:00 Stop Time: 09:00 Total Time Billed (hr/min): 60 Billed Treatment Time 1 visit-ADL 3 (40 min) NM 1 (20 min) CLARISSA GILBERT April 13, 2018 12:29
--- NOTE | 2018-04-13 15:00 | Therapy Group Daily Note ---
Therapy Daily Group Note Patient Education Topic Home Safety, Fall Prevention Other/Notes Pt maneuvered w/c to [facility] for OT/PT group. Group consisted of introductions (name, place from, word of advice for people starting out in the field they worked in), socialization and home safety education. Pt was able to introduce self appropriately then actively listened to peers. Pt was able to contribute to surrounding conversations with peers. Pt verbalized strategies for home safety and gave ideas used at home for safety. Pt then ambulated back to room using FWW. After group, pt sitting in recliner with call light/phone in reach. All needs met in room. Start Time: 13:00 Stop Time: 14:20 Total Billed Treatment Time: 80 Total Billed Treatment 1-CLARISSA CEE April 13, 2018 15:00
[2018-04-13] MEDS: RIVAROXABAN 20 MG TABLET (XARELTO) PO SCH (17:13)
[2018-04-13 18:35] VITALS: BP 116/66
[2018-04-13] MEDS: ATORVASTATIN 80 MG (LIPITOR) TABLET PO SCH (20:41)
[2018-04-14 06:13] VITALS: BP 126/74
[2018-04-14] MEDS: lisINopril 5 MG (PRINIVIL) TABLET PO SCH (08:05)
[2018-04-14] MEDS: ASPIRIN E.C. 81 MG (ECOTRIN) TAB PO SCH (08:05)
--- NOTE | 2018-04-14 08:30 | Progress Note (SOAP) ---
Subjective Time Seen by Provider: 08:27 Subjective/Events-last exam CVA. Patient on standby issues. Patient improving Objective Exam Vital Signs Date Time Temp Pulse Resp B/P (MAP) Pulse Ox O2 Delivery O2 Flow Rate FiO2 04/14/18 06:13 97.8 65 17 126/74 (91) 98 Room Air 04/13/18 21:00 Room Air 04/13/18 18:35 97.9 85 18 116/66 (83) 98 Room Air 04/13/18 08:42 Room Air I & O 04/14/18 07:00 Intake Total 1880 ml Output Total 1800 ml Balance 80 ml Capillary Refill : General Appearance: No Apparent Distress, Thin Assessment/Plan Assessment/Plan Assess & Plan/Chief Complaint CVA history of tobaccoism History of drinking. . 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 CVA. History of tobaccoism. History of drinking. Patient ready for PT and OT. . 04/03/18. CVA. History of tobaccoism. Patient working to get better. . 04/06/18. Patient improving. Patient moving left leg better. Patient swing with left. . 04/07/18. CVA. Tobacco history. Patient still needing help but improving. . 04/08/18. CVA. Tobacco history. Patient able to get his pants today. Patient having difficulty with upper extremity. . 04/09/18. CVA. Tobacco history. Patient A work IN progress. . 111. CVA. Tobacco history. Patient more steady on his feet.. . *04/13/18. CVA. Tobacco usage. Patient feels he is improving which he is. . /taking. CVA tobacco usage. Patient continues to improve. Patient voices no complaints Clinical Quality Measures DVT/VTE Risk/Contraindication: Risk Factor Score Per Nursin RFS Level Per Nursing on Admit: 4+=Very High MARITZA ROE DO April 14, 2018 08:30
--- NOTE | 2018-04-14 11:55 | Physical Therapy Daily Note ---
PT Daily Note-Current Subjective Patient sitting EOB pre tx, agrees to PT, no complaints of pain. Appearance Patient sitting EOB post tx with nurse call, phone, tray, all needs met. Mental Status Patient Orientation: Normal For Age Transfers Functional [place] Measure 0=Not Assessed/NA 4=Minimal Assistance 1=Total Assistance 5=Supervision or Setup 2=Maximal Assistance 6=Modified [place] 3=Moderate Assistance 7=Complete IndependenceIRFPAI Quality Coding Scale 6 Independent with activity with or without an assistive device 5 Patient requires set up or clean up by helper. Patient completes activity by themselves 4 Supervision or touching assist (CGA). [place] provide cues , steadying assist 3 The helper provides less than half the effort to complete the activity 2 The helper provides more than half the effort to complete the activity 1 Dependent. The helper does all the effort to complete an activity 7 Patient refused to complete or attempt activity 9 The patient did not perform the activity before the current illness or injury 88 Not attempted due to Medical conditions or safety concerns Transfers (B, C, W/C) (FIM): 4 Scootin Rollin Supine to/from Sit: 6 Sit to/from Stand: 4 Bed to/from Chair: 4 CGA for transfers Weight Bearing Right Lower Extremity: Right Full Weight Bearing Left Lower Extremity: Left Full Weight Bearing Gait Training Gait (FIM): 4 Distance: 150'x2 Gait Level of Assist: 4 Gait Persons Needed: 1 Gait Assistive Device: Cane Small Base Quad Patient's balance has improved but he still has an occasional LOB that requires a little therapist assist. His speed has improved. Exercises Supine Ex: Bridging, Quad Set, Glut sets, Heel Slides, Straight leg raise, Hip abd/add Supine Reps: 20 hooklying left knee fallout x20, LAQ left side for 5 min, sit to stand 3 sets of 10 NuStep Minutes: 15 NuStep Workload: 5 Treatments bed mobility and transfers, ambulation, functional strengthening Assessment Current Status: Fair Progress improving balance PT Short Term Goals Short Term Goals Time Frame: April 10, 2018 Gait (FIM): 4 Distance (FIM): 3=150 ft Gait Distance Comment: 200' Gait Level of Assist: 4 Gait Assistive Device: Walker Osei Wheelchair (FIM): 5 (met) Wheelchair distance (FIM): 3=150 ft Wheelchair Distance: 150'x2 Wheelchair Level of Assist: 5 Stairs (FIM): 2 # of Steps: 4 Stairs Level of Assist: 4 PT Golf Course Mechanic Goals Golf Course Mechanic Goals PT Golf Course Mechanic Goals Time Frame: April 30, 2018 Transfers (B,C,W/C) (FIM): 6 Sit to Lying (QC): 6 Lying-Sitting on Side/Bed(QC): 6 Sit to Stand (QC): 6 Rollin Roll Left to Right (QC): 6 Chair/Byi-zv-Zvrzy Xfer(QC): 6 Car Transfer (QC): 6 Does the Patient Walk: Yes Gait (FIM): 5 Gait distance (FIM): 3=150 ft Distance: 250' Walk 10 feet (QC): 6 Walk 10ft-Uneven Surface(QC): 5 Walk 50ft with 2 Turns (QC): 6 Walk 150 ft (QC): 6 Gait Level of Assist: 5 Gait Assistive Device: Walker Osei Does the Pt use WC or Scooter?: Yes Wheelchair (FIM): 6 Wheelchair distance (FIM): 3=150 ft Wheelchair Level of Assist: 6 Wheel 50 feet with 2 turns (QC: 6 Stairs (FIM): 5 # of Steps: 12 1 Step (curb) (QC): 5 4 Steps (QC): 5 12 Steps (QC): 5 Stairs Level Of Assist: 5 Picking up an Object (QC): 6 PT Plan Problem List Problem List: Activity Tolerance, Functional Strength, Safety, Balance, Gait, Transfer Treatment/Plan Treatment Plan: Continue Plan of Care Treatment Plan: Bed Mobility, Concurrent Therapy, Education, Functional Activity Aristides, Functional Strength, Group Therapy, Gait, Safety, Therapeutic Exercise, Transfers Treatment Duration: April 30, 2018 Frequency: At least 5 of 7 days/Wk (IRF) Estimated Hrs Per Day: 1.5 hours per day Patient and/or Family Agrees t: Yes Safety Risks/Education Patient Education: Gait Training, Transfer Techniques, Correct Positioning, Safety Issues Teaching Recipient: Patient Teaching Methods: Demonstration, Discussion Response to Teaching: Reinforcement Needed Time/GCodes Time In: 1100 Time Out: 1200 Total Billed Treatment Time: 60 Total Billed Treatment 1 visit GT 20' EX 40' MARY KAY RYDER PT April 14, 2018 11:55
--- NOTE | 2018-04-14 11:58 | Occupational Ther Daily Note ---
OT Current Status-Daily Note Subjective Pt in bed, agrees to treatment. No c/o pain. Mental Status/Objective Functional [place] Measure 0=Not Assessed/NA 4=Minimal Assistance 1=Total Assistance 5=Supervision or Setup 2=Maximal Assistance 6=Modified [place] 3=Moderate Assistance 7=Complete [place] ADL-Treatment Pt would like to shower this morning. Supine to sit with modified independence. Transfer to w/c with supervision. Pt retrieved clothing from closet at w/c level. To bathroom via w/c. Pt doffed clothing with SBA. Transfer w/c <-> shower bench with supervision using grab bar for balance and safety. Seated bathing completed using hand held shower. Pt able to complete bathing tasks with SBA. Don pullover shirt with set up. Pt donned underwear and pants with SBA for balance during standing for pant hike. Pt leans on wall for balance. Don bilateral socks with set up. Dons shoes with elastic laces with set up and increased time. Grooming tasks completed seated at sink with modified independence. Pt gathered laundry and transported it to laundry room via w/c. Pt does not require any assist with w/c mobility. Pt placed clothes and soap in washer without assist. Stood with SBA for balance while managing settings on washer. Pt returned to room, sitting in w/c with needs met after session. Functional [place] Measure 0=Not Assessed/NA 4=Minimal Assistance 1=Total Assistance 5=Supervision or Setup 2=Maximal Assistance 6=Modified [place] 3=Moderate Assistance 7=Complete IndependenceIRFPAI Quality Coding Scale 6 Independent with activity with or without an assistive device 5 Patient requires set up or clean up by helper. Patient completes activity by themselves 4 Supervision or touching assist (CGA). [place] provide cues , steadying assist 3 The helper provides less than half the effort to complete the activity 2 The helper provides more than half the effort to complete the activity 1 Dependent. The helper does all the effort to complete an activity 7 Patient refused to complete or attempt activity 9 The patient did not perform the activity before the current illness or injury 88 Not attempted due to Medical conditions or safety concerns Grooming (FIM): 6 Oral Hygiene (QC): 6 Bathing (FIM): 5 Shower/Bathe Self (QC): 4 Upper Body (FIM): 5 Upper Body Dressing (QC): 5 Lower Body Dressing (FIM): 5 Lower Body Dressing (QC): 4 On/Off Footwear (QC): 5 Shower Transfer(FIM): 5 OT Short Term Goals Short Term Goals Time Frame: April 07, 2018 Bathing(FIM): 4 Upper Body Dressing(FIM): 4 Lower Body Dressing(FIM): 4 Toileting(FIM): 4 Shower Transfer(FIM): 4 Additional Short Term Goals: 2-Verbalize Understanding, 3-ImproveStrength/Aristides 1=Demonstrate adherence to instructed precautions during ADL tasks. 2=Patient will verbalize/demonstrate understanding of assistive devices/ modifications for ADL. 3=Patient will improve strength/tolerance for activity to enable patient to perform ADL's. OT Terrazzo Mechanic Goals Terrazzo Mechanic Goals Time Frame: April 21, 2018 Eating (FIM): 6 Eating (QC): 6 Groomin Oral Hygiene (QC): 6 Bathing(FIM): 5 Shower/Bathe Self (QC): 5 Upper Body Dressing(FIM): 6 Upper Body Dressing (QC): 6 Lower Body Dressing(FIM): 5 Lower Body Dressing (QC): 5 On/Off Footwear (QC): 5 Toileting(FIM): 6 Toileting Hygiene (QC): 6 Toilet/Commode Transfer(FIM): 6 Toilet/Commode Transfer (QC): 6 Shower Transfer(FIM): 5 Comprehension(FIM): 7 (MET) Expression (FIM): 7 (MET) Social Interaction(FIM): 7 (MET) Problem Solving(FIM): 7 (MET) Memory(FIM): 7 (MET) Additional Goals: 2-Verbalize Understanding, 3-ImproveStrength/Aristides 1=Demonstrate adherence to instructed precautions during ADL tasks. 2=Patient will verbalize/demonstrate understanding of assistive devices/ modifications for ADL. 3=Patient will improve strength/tolerance for activity to enable patient to perform ADL's. OT Education/Plan Discharge Recommendations Plan/Recommendations: Continue POC Treatment Plan/Plan of Care Patient would benefit from OT for education, treatment and training to promote independence in ADL's, mobility, safety and/or upper extremity function for ADL' s. Plan of Care: ADL Retraining, Functional Mobility, Group Exercise/Act as Ind, UE Funct Exercise/Act, UE Neuromus Re-Ed/Coord Treatment Duration: April 21, 2018 Frequency: At least 5 of 7 days/Wk (IRF) Estimated Hrs Per Day: 1.5 hours per day Agreement: Yes Rehab Potential: Good Time/GCodes Start Time: 08:00 Stop Time: 09:00 Total Time Billed (hr/min): 60 Billed Treatment Time 1 visit, ADLx4(60minutes) GUSTAVO IZAGUIRRE OT April 14, 2018 11:58
--- NOTE | 2018-04-14 14:14 | Occupational Ther Daily Note ---
OT Current Status-Daily Note Subjective Pt agreeable to treatment this pm. No c/o pain. Mental Status/Objective Functional [place] Measure 0=Not Assessed/NA 4=Minimal Assistance 1=Total Assistance 5=Supervision or Setup 2=Maximal Assistance 6=Modified [place] 3=Moderate Assistance 7=Complete [place] ADL-Treatment Supine to sit with modified independence. Pt donned shoes with modified independence while seated EOB. Transfer to w/c with supervision. Pt completed w/ c <-> toilet transfer x3 trials to increase safety. Pt requires supervision only for transfers using grab bar for balance and safety. W/c mobility to shower room without assistance. Reviewed safe tub transfers using shower chair. Pt transferred w/c <-> tub using shower chair x3 trials with supervision and occasional verbal cues for safety. Pt states he will have a shower chair for home use and has a grab bar in the tub. Functional [place] Measure 0=Not Assessed/NA 4=Minimal Assistance 1=Total Assistance 5=Supervision or Setup 2=Maximal Assistance 6=Modified [place] 3=Moderate Assistance 7=Complete IndependenceIRFPAI Quality Coding Scale 6 Independent with activity with or without an assistive device 5 Patient requires set up or clean up by helper. Patient completes activity by themselves 4 Supervision or touching assist (CGA). [place] provide cues , steadying assist 3 The helper provides less than half the effort to complete the activity 2 The helper provides more than half the effort to complete the activity 1 Dependent. The helper does all the effort to complete an activity 7 Patient refused to complete or attempt activity 9 The patient did not perform the activity before the current illness or injury 88 Not attempted due to Medical conditions or safety concerns Other Treatment W/c mobility to therapy gym without assistance. Transfer w/c <-> edge of mat with supervision. Pt completed activity at edge of mat to increase core strength and stabilization needed for functional tasks. ROM also completed to left UE. No active movement noted. Pt returned to room, sitting in w/c with needs met after session. OT Short Term Goals Short Term Goals Time Frame: April 07, 2018 Bathing(FIM): 4 Upper Body Dressing(FIM): 4 Lower Body Dressing(FIM): 4 Toileting(FIM): 4 Shower Transfer(FIM): 4 Additional Short Term Goals: 2-Verbalize Understanding, 3-ImproveStrength/Aristides 1=Demonstrate adherence to instructed precautions during ADL tasks. 2=Patient will verbalize/demonstrate understanding of assistive devices/ modifications for ADL. 3=Patient will improve strength/tolerance for activity to enable patient to perform ADL's. OT Residential Goals Cardiology Rn Goals Time Frame: April 21, 2018 Eating (FIM): 6 Eating (QC): 6 Groomin Oral Hygiene (QC): 6 Bathing(FIM): 5 Shower/Bathe Self (QC): 5 Upper Body Dressing(FIM): 6 Upper Body Dressing (QC): 6 Lower Body Dressing(FIM): 5 Lower Body Dressing (QC): 5 On/Off Footwear (QC): 5 Toileting(FIM): 6 Toileting Hygiene (QC): 6 Toilet/Commode Transfer(FIM): 6 Toilet/Commode Transfer (QC): 6 Shower Transfer(FIM): 5 Comprehension(FIM): 7 (MET) Expression (FIM): 7 (MET) Social Interaction(FIM): 7 (MET) Problem Solving(FIM): 7 (MET) Memory(FIM): 7 (MET) Additional Goals: 2-Verbalize Understanding, 3-ImproveStrength/Aristides 1=Demonstrate adherence to instructed precautions during ADL tasks. 2=Patient will verbalize/demonstrate understanding of assistive devices/ modifications for ADL. 3=Patient will improve strength/tolerance for activity to enable patient to perform ADL's. OT Education/Plan Discharge Recommendations Plan/Recommendations: Continue POC Treatment Plan/Plan of Care Patient would benefit from OT for education, treatment and training to promote independence in ADL's, mobility, safety and/or upper extremity function for ADL' s. Plan of Care: ADL Retraining, Functional Mobility, Group Exercise/Act as Ind, UE Funct Exercise/Act, UE Neuromus Re-Ed/Coord Treatment Duration: April 21, 2018 Frequency: At least 5 of 7 days/Wk (IRF) Estimated Hrs Per Day: 1.5 hours per day Agreement: Yes Rehab Potential: Good Time/GCodes Start Time: 13:00 Stop Time: 13:30 Total Time Billed (hr/min): 30 Billed Treatment Time 1 visit, FAx2(30minutes) GUSTAVO IZAGUIRRE OT April 14, 2018 14:13
--- NOTE | 2018-04-14 14:35 | PM & R (SOAP) Progress Note ---
Subjective This was a face to face visit with the patient. Date Seen by Provider: April 14, 2018 Time Seen by Provider: 08:00 Subjective/Events-last exam Patient was seen in his room this AM Assoisted with dressing Patient min assist for transfers Patient scheduled for discharge to home with sister on 04-16-18 current meds reviewed Review of Systems Neurological: Weakness Objective Physician Exam Last Set of Vital Signs Vital Signs Date Time Temp Pulse Resp B/P (MAP) Pulse Ox O2 Delivery O2 Flow Rate FiO2 04/14/18 06:13 97.8 65 17 126/74 (91) 98 Room Air Capillary Refill : I&O Intake and Output 04/14/18 00:00 Intake Total 2000 ml Output Total 2000 ml Balance 0 ml Intake Oral 2000 ml Output Urine Total 2000 ml General: Alert, Oriented X3, Cooperative, No Acute Distress HEENT: Atraumatic, PERRLA, EOMI, Mucous Memb Moist/[place], Other (Coughing with swaloowing liquids) Neck: Supple, No JVD Lungs: Clear to Auscultation Heart: Regular Rate Abdomen: Normal Bowel Sounds, Soft, No Tenderness Extremities: No Edema Neuro: Other (Left HP) Assessment/Plan Assessment and Plan 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
--- NOTE | 2018-04-14 15:14 | Physical Therapy Daily Note ---
PT Daily Note-Current Subjective Patient in wheelchair pre tx, agrees to PT, no complaints of pain. Appearance Patient in wheelchair post tx, going back to his room with family. Mental Status Patient Orientation: Normal For Age Transfers Functional [place] Measure 0=Not Assessed/NA 4=Minimal Assistance 1=Total Assistance 5=Supervision or Setup 2=Maximal Assistance 6=Modified [place] 3=Moderate Assistance 7=Complete IndependenceIRFPAI Quality Coding Scale 6 Independent with activity with or without an assistive device 5 Patient requires set up or clean up by helper. Patient completes activity by themselves 4 Supervision or touching assist (CGA). [place] provide cues , steadying assist 3 The helper provides less than half the effort to complete the activity 2 The helper provides more than half the effort to complete the activity 1 Dependent. The helper does all the effort to complete an activity 7 Patient refused to complete or attempt activity 9 The patient did not perform the activity before the current illness or injury 88 Not attempted due to Medical conditions or safety concerns Transfers (B, C, W/C) (FIM): 4 Sit to/from Stand: 4 Weight Bearing Right Lower Extremity: Right Full Weight Bearing Left Lower Extremity: Left Full Weight Bearing Gait Training Gait (FIM): 4 Distance: 200', 150' Gait Level of Assist: 4 Gait Persons Needed: 1 Gait Assistive Device: Cane Small Base Quad Min assist for occasional LOB, advancing his left leg well but poor foot clearance Exercises Seated Therapy Exercises: Long arc quads, Hip flexion Seated Reps: [address] Ex=Flex, Abd, Ext, Marching, Mini squats Standing Reps: 20 Treatments transfers, ambulation, functional strengthening Assessment Current Status: Fair Progress improved ambulation distance PT Short Term Goals Short Term Goals Time Frame: April 10, 2018 Gait (FIM): 4 Distance (FIM): 3=150 ft Gait Distance Comment: 200' Gait Level of Assist: 4 Gait Assistive Device: Walker Osei Wheelchair (FIM): 5 (met) Wheelchair distance (FIM): 3=150 ft Wheelchair Distance: 150'x2 Wheelchair Level of Assist: 5 Stairs (FIM): 2 # of Steps: 4 Stairs Level of Assist: 4 PT Documentation Spec Goals Documentation Spec Goals PT Documentation Spec Goals Time Frame: April 30, 2018 Transfers (B,C,W/C) (FIM): 6 Sit to Lying (QC): 6 Lying-Sitting on Side/Bed(QC): 6 Sit to Stand (QC): 6 Rollin Roll Left to Right (QC): 6 Chair/Xee-ip-Istot Xfer(QC): 6 Car Transfer (QC): 6 Does the Patient Walk: Yes Gait (FIM): 5 Gait distance (FIM): 3=150 ft Distance: 250' Walk 10 feet (QC): 6 Walk 10ft-Uneven Surface(QC): 5 Walk 50ft with 2 Turns (QC): 6 Walk 150 ft (QC): 6 Gait Level of Assist: 5 Gait Assistive Device: Walker Osei Does the Pt use WC or Scooter?: Yes Wheelchair (FIM): 6 Wheelchair distance (FIM): 3=150 ft Wheelchair Level of Assist: 6 Wheel 50 feet with 2 turns (QC: 6 Stairs (FIM): 5 # of Steps: 12 1 Step (curb) (QC): 5 4 Steps (QC): 5 12 Steps (QC): 5 Stairs Level Of Assist: 5 Picking up an Object (QC): 6 PT Plan Problem List Problem List: Activity Tolerance, Functional Strength, Safety, Balance, Gait, Transfer, Bed Mobility, ROM Treatment/Plan Treatment Plan: Continue Plan of Care Treatment Plan: Bed Mobility, Concurrent Therapy, Education, Functional Activity Aristides, Functional Strength, Group Therapy, Gait, Safety, Therapeutic Exercise, Transfers Treatment Duration: April 30, 2018 Frequency: At least 5 of 7 days/Wk (IRF) Estimated Hrs Per Day: 1.5 hours per day Patient and/or Family Agrees t: Yes Safety Risks/Education Patient Education: Gait Training, Transfer Techniques, Correct Positioning, Safety Issues Teaching Recipient: Patient Teaching Methods: Demonstration, Discussion Response to Teaching: Reinforcement Needed Time/GCodes Time In: 1445 Time Out: 1515 Total Billed Treatment Time: 30 Total Billed Treatment 1 visit GT 15' EX 15' MARY KAY RYDER PT April 14, 2018 15:14
[2018-04-14] MEDS: RIVAROXABAN 20 MG TABLET (XARELTO) PO SCH (17:16)
[2018-04-14 17:47] VITALS: BP 121/75
[2018-04-14] MEDS: ATORVASTATIN 80 MG (LIPITOR) TABLET PO SCH (20:45)
[2018-04-15 05:57] VITALS: BP 129/52
--- NOTE | 2018-04-15 08:21 | Progress Note (SOAP) ---
Subjective Time Seen by Provider: 08:20 Subjective/Events-last exam CVA. Patient doing more things by himself. Patient to be discharged tomorrow and excited to go home Objective Exam Vital Signs Date Time Temp Pulse Resp B/P (MAP) Pulse Ox O2 Delivery O2 Flow Rate FiO2 04/15/18 05:57 98.4 83 17 129/52 (77) 97 Room Air 04/14/18 20:30 Room Air 04/14/18 17:47 96.9 93 16 121/75 (90) 96 I & O 04/15/18 07:00 Intake Total 1360 ml Output Total 1525 ml Balance -165 ml Capillary Refill : General Appearance: No Apparent Distress, Thin Assessment/Plan Assessment/Plan Assess & Plan/Chief Complaint CVA history of tobaccoism History of drinking. . 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 CVA. History of tobaccoism. History of drinking. Patient ready for PT and OT. . 04/03/18. CVA. History of tobaccoism. Patient working to get better. . 04/06/18. Patient improving. Patient moving left leg better. Patient swing with left. . 04/07/18. CVA. Tobacco history. Patient still needing help but improving. . 04/08/18. CVA. Tobacco history. Patient able to get his pants today. Patient having difficulty with upper extremity. . 04/09/18. CVA. Tobacco history. Patient A work IN progress. . 1117. CVA. Tobacco history. Patient more steady on his feet.. . *04/13/18. CVA. Tobacco usage. Patient feels he is improving which he is. . /taking. CVA tobacco usage. Patient continues to improve. Patient voices no complaints. . 04/15/18. CVA. Tobacco usage. Patient be discharged tomorrow. Patient excited to go home Clinical Quality Measures DVT/VTE Risk/Contraindication: Risk Factor Score Per Nursin RFS Level Per Nursing on Admit: 4+=Very High MARITZA ROE DO April 15, 2018 08:21
[2018-04-15] MEDS: ASPIRIN E.C. 81 MG (ECOTRIN) TAB PO SCH (08:37)
[2018-04-15] MEDS: lisINopril 5 MG (PRINIVIL) TABLET PO SCH (08:38)
--- NOTE | 2018-04-15 10:01 | Physical Therapy Daily Note ---
PT Daily Note-Current Subjective Patient in wheelchair pre tx, agrees to PT, no complaints of pain. Appearance Patient in wheelchair post tx. Mental Status Patient Orientation: Normal For Age Transfers Functional [place] Measure 0=Not Assessed/NA 4=Minimal Assistance 1=Total Assistance 5=Supervision or Setup 2=Maximal Assistance 6=Modified [place] 3=Moderate Assistance 7=Complete IndependenceIRFPAI Quality Coding Scale 6 Independent with activity with or without an assistive device 5 Patient requires set up or clean up by helper. Patient completes activity by themselves 4 Supervision or touching assist (CGA). [place] provide cues , steadying assist 3 The helper provides less than half the effort to complete the activity 2 The helper provides more than half the effort to complete the activity 1 Dependent. The helper does all the effort to complete an activity 7 Patient refused to complete or attempt activity 9 The patient did not perform the activity before the current illness or injury 88 Not attempted due to Medical conditions or safety concerns Transfers (B, C, W/C) (FIM): 4 Scootin Rollin Roll Left to Right (QC): 6 Supine to/from Sit: 6 Sit to/from Stand: 4 Sit to Lying (QC): 6 Sit to Stand (QC): 4 Chair/Tic-gz-Tihcn Xfer(QC): 4 Bed to/from Chair: 4 Car Transfer (QC): 4 Patient performs bed mobility with mod I, sit to stand and stand pivot with CGA , car transfer with CGA. Weight Bearing Right Lower Extremity: Right Full Weight Bearing Left Lower Extremity: Left Full Weight Bearing Gait Training Gait (FIM): 4 Distance: 150', 50' Walk 10 feet (QC): 4 Walk 50 ft with 2 Turns(QC): 4 Walk 150 ft (QC): 4 Walking 10ft/uneven surface-QC: 4 Gait Level of Assist: 4 Gait Persons Needed: 1 Gait Assistive Device: Cane Small Base Quad Patient can ambulate 150' with a quad cane with CGA, including 50' with at least 2 turns of 90 degrees and 10' over an uneven surface. Patient needs min assist for occasional LOB, left knee strength decreases with use and eventually starts to buckle unless he takes rest breaks. Wheelchair Training Does the Pt Use a Wheelchair?: Yes Wheelchair (FIM): 6 Distance: 300' Wheel 50 ft with 2 turns (QC): 6 Wheel 150 ft (QC): 6 Type of Wheelchair: Manual Stair Training Stair Training: Handrails/: 1 handrail Stairs (FIM): 2 #of Steps: 4 1 Step (curb) (QC): 4 4 Steps (QC): 4 12 Steps (QC): 88 Stairs: Pattern: Step to Level of Assist: 4 Patient went up and down 4 steps using 1 handrail with CGA. Patient needs cues for foot placement and close guarding. Exercises LAQ left side for 5 min, sit to stand 3 sets of 10 NuStep Minutes: 15 NuStep Workload: 5 Treatments bed mobility and transfers, ambulation, stair training, wheelchair mobility, functional strengthening Assessment Current Status: Fair Progress improving functional mobility, endurance PT Short Term Goals Short Term Goals Time Frame: April 10, 2018 Gait (FIM): 4 Distance (FIM): 3=150 ft Gait Distance Comment: 200' Gait Level of Assist: 4 Gait Assistive Device: Walker Osei Wheelchair (FIM): 5 (met) Wheelchair distance (FIM): 3=150 ft Wheelchair Distance: 150'x2 Wheelchair Level of Assist: 5 Stairs (FIM): 2 # of Steps: 4 Stairs Level of Assist: 4 PT Pattern Maker Goals Pattern Maker Goals PT Pattern Maker Goals Time Frame: April 30, 2018 Transfers (B,C,W/C) (FIM): 6 Sit to Lying (QC): 6 (met) Lying-Sitting on Side/Bed(QC): 6 (met) Sit to Stand (QC): 6 Rollin (met) Roll Left to Right (QC): 6 (met) Chair/Okh-hm-Hyfxu Xfer(QC): 6 Car Transfer (QC): 6 Does the Patient Walk: Yes Gait (FIM): 5 Gait distance (FIM): 3=150 ft Distance: 250' Walk 10 feet (QC): 6 Walk 10ft-Uneven Surface(QC): 5 Walk 50ft with 2 Turns (QC): 6 Walk 150 ft (QC): 6 Gait Level of Assist: 5 Gait Assistive Device: Walker Osei Does the Pt use WC or Scooter?: Yes Wheelchair (FIM): 6 Wheelchair distance (FIM): 3=150 ft Wheelchair Level of Assist: 6 Wheel 50 feet with 2 turns (QC: 6 Stairs (FIM): 5 # of Steps: 12 1 Step (curb) (QC): 5 4 Steps (QC): 5 12 Steps (QC): 5 Stairs Level Of Assist: 5 Picking up an Object (QC): 6 PT Plan Problem List Problem List: Activity Tolerance, Functional Strength, Safety, Balance, Gait, Transfer, ROM Treatment/Plan Treatment Plan: Continue Plan of Care Treatment Plan: Bed Mobility, Concurrent Therapy, Education, Functional Activity [place], Functional Strength, Group Therapy, Gait, Safety, Therapeutic Exercise, Transfers Treatment Duration: April 30, 2018 Frequency: At least 5 of 7 days/Wk (IRF) Estimated Hrs Per Day: 1.5 hours per day Patient and/or Family Agrees t: Yes Safety Risks/Education Patient Education: Gait Training, Transfer Techniques, Steps, Correct Positioning, Safety Issues Teaching Recipient: Patient Teaching Methods: Demonstration, Discussion Response to Teaching: Reinforcement Needed Time/GCodes Time In: 0900 Time Out: 1000 Total Billed Treatment Time: 60 Total Billed Treatment 1 visit EX 30' GT 30' MARY KAY RYDER PT April 15, 2018 10:01
--- NOTE | 2018-04-15 10:30 | Occupational Ther Daily Note ---
OT Current Status-Daily Note Subjective Pt in bed, agrees to treatment. Mental Status/Objective Functional [place] Measure 0=Not Assessed/NA 4=Minimal Assistance 1=Total Assistance 5=Supervision or Setup 2=Maximal Assistance 6=Modified [place] 3=Moderate Assistance 7=Complete [place] ADL-Treatment Pt supine to sit with modified independence. Transfer EOB to w/c with close supervision. Pt retrieved clothing at w/c level. W/c mobility to restroom without assistance. Doff clothing with SBA. Pt transferred w/c <-> shower bench with supervision using grab bar for balance and safety. Seated bathing completed using hand held shower and long handled sponge. Pt is able to complete bathing tasks with SBA. Don pullover shirt with modified independence. Pt donned underwear and shorts with SBA for balance during standing for pant hike. Pt uses grab bar and leans on wall for balance during pant hike. Pt donned socks and shoes with set up and increased time. Grooming tasks completed seated at sink. Pt brushed teeth, shaved, and combed hair with modified independence. Pt demonstrated ability to perform toilet transfer with SBA using grab bar. Pt performed w/c mobility to kitchen area. Able to fill glass with ice and water and transport back to room without assistance. Education provided regarding ADLs and home safety. Pt states understanding of education and has no questions or concerns at this time. Plan is for pt to d/c home tomorrow with sister. Pt sitting in w/c with needs met after session. Functional [place] Measure 0=Not Assessed/NA 4=Minimal Assistance 1=Total Assistance 5=Supervision or Setup 2=Maximal Assistance 6=Modified [place] 3=Moderate Assistance 7=Complete IndependenceIRFPAI Quality Coding Scale 6 Independent with activity with or without an assistive device 5 Patient requires set up or clean up by helper. Patient completes activity by themselves 4 Supervision or touching assist (CGA). [place] provide cues , steadying assist 3 The helper provides less than half the effort to complete the activity 2 The helper provides more than half the effort to complete the activity 1 Dependent. The helper does all the effort to complete an activity 7 Patient refused to complete or attempt activity 9 The patient did not perform the activity before the current illness or injury 88 Not attempted due to Medical conditions or safety concerns Eating (FIM): 6 (by report) Eating (QC): 6 Grooming (FIM): 6 Oral Hygiene (QC): 6 Bathing (FIM): 5 Shower/Bathe Self (QC): 4 Upper Body (FIM): 6 Upper Body Dressing (QC): 6 Lower Body Dressing (FIM): 5 Lower Body Dressing (QC): 4 On/Off Footwear (QC): 5 Toilet/Commode Transfer (FIM): 5 Toilet Transfer (QC): 4 Shower Transfer(FIM): 5 OT Short Term Goals Short Term Goals Time Frame: April 07, 2018 Bathing(FIM): 4 Upper Body Dressing(FIM): 4 Lower Body Dressing(FIM): 4 Toileting(FIM): 4 Shower Transfer(FIM): 4 Additional Short Term Goals: 2-Verbalize Understanding, 3-ImproveStrength/Aristides 1=Demonstrate adherence to instructed precautions during ADL tasks. 2=Patient will verbalize/demonstrate understanding of assistive devices/ modifications for ADL. 3=Patient will improve strength/tolerance for activity to enable patient to perform ADL's. OT Positive Printer Operator Goals Correction Goals Time Frame: April 21, 2018 Eating (FIM): 6 (met 04/15/18) Eating (QC): 6 (6-MET) Groomin (met 04/15/18) Oral Hygiene (QC): 6 (6-MET) Bathing(FIM): 5 (met 04/15/18) Shower/Bathe Self (QC): 5 (4-not met) Upper Body Dressing(FIM): 6 (met 04/15/18) Upper Body Dressing (QC): 6 (6-MET) Lower Body Dressing(FIM): 5 (met 04/15/18) Lower Body Dressing (QC): 5 (4-not met) On/Off Footwear (QC): 5 (5-MET) Toileting(FIM): 6 Toileting Hygiene (QC): 6 Toilet/Commode Transfer(FIM): 6 (not met) Toilet/Commode Transfer (QC): 6 (4-not met) Shower Transfer(FIM): 5 (met 04/15/18) Comprehension(FIM): 7 (MET) Expression (FIM): 7 (MET) Social Interaction(FIM): 7 (MET) Problem Solving(FIM): 7 (MET) Memory(FIM): 7 (MET) Additional Goals: 2-Verbalize Understanding, 3-ImproveStrength/Aristides 1=Demonstrate adherence to instructed precautions during ADL tasks. 2=Patient will verbalize/demonstrate understanding of assistive devices/ modifications for ADL. 3=Patient will improve strength/tolerance for activity to enable patient to perform ADL's. OT Education/Plan Discharge Recommendations Plan/Recommendations: Continue POC Treatment Plan/Plan of Care Patient would benefit from OT for education, treatment and training to promote independence in ADL's, mobility, safety and/or upper extremity function for ADL' s. Plan of Care: ADL Retraining, Functional Mobility, Group Exercise/Act as Ind, UE Funct Exercise/Act, UE Neuromus Re-Ed/Coord Treatment Duration: April 21, 2018 Frequency: At least 5 of 7 days/Wk (IRF) Estimated Hrs Per Day: 1.5 hours per day Agreement: Yes Rehab Potential: Good Time/GCodes Start Time: 08:00 Stop Time: 09:00 Total Time Billed (hr/min): 60 Billed Treatment Time 1 visit, ADLx4(60minutes) GUSTAVO IZAGUIRRE OT April 15, 2018 10:30
--- NOTE | 2018-04-15 14:27 | Therapy Group Daily Note ---
Therapy Daily Group Note Patient Education Topic Other List Below (Spine: anatomy , health, posture and strengthening and stretching exercise) Exercises LE Seated Exercise, UE Exercise, Other (core) Other/Notes Pt. participated in group PT OT session. Pt. came/went with ced cane and CGA. Education regarding spinal health, anatomy and posture was taught utilizing erasmo line and spine model. Pts. contributed personal experiences and participated in spine and trunk exercises and stretches. Pt. to room after with lopez at hand. Start Time: 13:00 Stop Time: 14:10 Total Billed Treatment Time: 70 Total Billed Treatment 1,GRP JENNIFER ASH OFFICE CORRESPONDENT April 15, 2018 14:27
[2018-04-15 17:20] VITALS: BP 127/52
[2018-04-15] MEDS: RIVAROXABAN 20 MG TABLET (XARELTO) PO SCH (17:50)
[2018-04-15] MEDS ORDERED: ATOR80TA76 PO (18:25)
[2018-04-15] MEDS ORDERED: RIVA20TA PO (18:25)
[2018-04-15] MEDS ORDERED: LISI-556 PO (18:25)
[2018-04-15] MEDS ORDERED: ASPI-983 PO (18:25)
[2018-04-15] MEDS: ATORVASTATIN 80 MG (LIPITOR) TABLET PO SCH (20:30)
[2018-04-16 05:23] VITALS: BP 133/67
--- NOTE | 2018-04-16 08:20 | PM & R (SOAP) Progress Note ---
Subjective This was a face to face visit with the patient. Date Seen by Provider: April 16, 2018 Time Seen by Provider: 07:50 Subjective/Events-last exam Patient was seen in his room this AM [place] for discharge to home with his sister near [place] Patient will have f/u with DR Minor PCP in [place] Uncertain what f/u therapies patient will have as he has no medical insurance in force at this time will f/u with SW Review of Systems Neurological: Weakness Objective Physician Exam Last Set of Vital Signs Vital Signs Date Time Temp Pulse Resp B/P (MAP) Pulse Ox O2 Delivery O2 Flow Rate FiO2 04/16/18 05:23 97.6 71 19 133/67 (89) 97 Room Air Capillary Refill : I&O Intake and Output 04/16/18 00:00 Intake Total 1230 ml Output Total 1475 ml Balance -245 ml Intake Oral 1230 ml Output Urine Total 1475 ml # Bowel Movements 1 General: Alert, Oriented X3, Cooperative, No Acute Distress HEENT: Atraumatic, PERRLA, EOMI, Mucous Memb Moist/[place], Other (Coughing with swaloowing liquids) Neck: Supple, No JVD Lungs: Clear to Auscultation Heart: Regular Rate Abdomen: Normal Bowel Sounds, Soft, No Tenderness Extremities: No Edema Neuro: Other (Left HP) Assessment/Plan Assessment and Plan Discharge today as per above F/U with PCP Current meds reviewed See Orders (1) CVA (cerebral vascular accident) Status: Acute Co-Morbidities that are continuing to impact the rehab process: (include details ) ANALY CHRISTY MD April 16, 2018 08:20
--- NOTE | 2018-04-16 08:26 | Progress Note (SOAP) ---
Subjective Time Seen by Provider: 08:25 Subjective/Events-last exam Patient excited about going home. Patient is improved much. CVA Objective Exam Vital Signs Date Time Temp Pulse Resp B/P (MAP) Pulse Ox O2 Delivery O2 Flow Rate FiO2 04/16/18 05:23 97.6 71 19 133/67 (89) 97 Room Air 04/15/18 20:20 Room Air 04/15/18 17:20 98.1 91 18 127/52 (77) 97 Room Air 04/15/18 08:45 Room Air I & O 04/16/18 07:00 Intake Total 1250 ml Output Total 1900 ml Balance -650 ml Capillary Refill : General Appearance: No Apparent Distress, Thin HEENT: Normal ENT Inspection Neck: Full Range of Motion, Normal Inspection, Non Tender Respiratory: Lungs Clear, Normal Breath Sounds, No Accessory Muscle Use, No Respiratory Distress Cardiovascular: Regular Rate, Rhythm, No Murmur Assessment/Plan Assessment/Plan Assess & Plan/Chief Complaint CVA history of tobaccoism History of drinking. . 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 CVA. History of tobaccoism. History of drinking. Patient ready for PT and OT. . 04/03/18. CVA. History of tobaccoism. Patient working to get better. . 04/06/18. Patient improving. Patient moving left leg better. Patient swing with left. . 04/07/18. CVA. Tobacco history. Patient still needing help but improving. . 04/08/18. CVA. Tobacco history. Patient able to get his pants today. Patient having difficulty with upper extremity. . 04/09/18. CVA. Tobacco history. Patient A work IN progress. . 1117. CVA. Tobacco history. Patient more steady on his feet.. . *04/13/18. CVA. Tobacco usage. Patient feels he is improving which he is. . /taking. CVA tobacco usage. Patient continues to improve. Patient voices no complaints. . 04/15/18. CVA. Tobacco usage. Patient be discharged tomorrow. Patient excited to go home. . 04/16/18. CVA. Tobacco usage. Patient excited about going home. Patient has improved. gets around by wheelchair by himself Clinical Quality Measures DVT/VTE Risk/Contraindication: Risk Factor Score Per Nursin RFS Level Per Nursing on Admit: 4+=Very High MARITZA ROE DO April 16, 2018 08:25
[2018-04-16] MEDS: lisINopril 5 MG (PRINIVIL) TABLET PO SCH (08:41)
[2018-04-16] MEDS: ASPIRIN E.C. 81 MG (ECOTRIN) TAB PO SCH (08:41)
--- NOTE | 2018-04-16 10:18 | Therapy Team Discharge Summary ---
Therapy Discharge Summary Discharge Recommendations Date of Discharge 04/16/18 Therapy D/C Recommendations: Home w/ Family Support Physical Therapy this patient has been seen on ARU for skilled therapy intervention post CVA. 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 Upon admission, he was min assist with transfers, ambulated 150 ft with assist, went up/down a step and was SBA with wheelchair mobility. Treatment has focused on functional safety and functional mobility with L LE strength training emphasis. He has made functional progress although his FIM scores have changed little. His primary impairment is decreased safety awareness. At discharge, he is still min assist with transfers , and min assist with gait; he was able to go up/down steps with assist and is mod indep with wheelchair mobility. His mobililty has improved. Recommend follow up care at discharge, but unsure if he will be able to receive it due to insurance complications. Pt to discharge home this date with his sister. Occupational Therapy Decreased UE Strength, Dependent Transfers, Impaired Funct Balance, Impaired Self-Care Skills PT Mcc Goals Mcc Goals PT Synthetic Chemist Goals Time Frame: April 30, 2018 Transfers (B,C,W/C) (FIM): 6 (unmet, scored a 4) Roll Left to Right (QC): 6 (met) Sit to Lying (QC): 6 (met) Lying-Sitting on Side/Bed(QC): 6 (met) Sit to Stand (QC): 6 (unmet) Chair/Qvg-ms-Aejfn Xfer(QC): 6 (unmet) Car Transfer (QC): 6 (unmet) Does the Patient Walk: Yes Gait (FIM): 5 (unmet) Gait distance (FIM): 3=150 ft Distance: 250' Walk 10 feet (QC): 6 (unmet) Walk 10ft-Uneven Surface(QC): 5 (unmet) Walk 50ft with 2 Turns (QC): 6 (unmet) Walk 150 ft (QC): 6 (unmet) Gait Level of Assist: 5 Gait Assistive Device: Walker Osei Does the Pt use WC or Scooter?: Yes Wheelchair (FIM): 6 Wheelchair distance (FIM): 3=150 ft Wheelchair Level of Assist: 6 Wheel 50 feet with 2 turns (QC: 6 (met) Stairs (FIM): 5 (unmet) # of Steps: 12 1 Step (curb) (QC): 5 (unmt) 4 Steps (QC): 5 (unmet) 12 Steps (QC): 5 (unmet) Stairs Level Of Assist: 5 Picking up an Object (QC): 6 (unmet) Pt is generally min assist with standing and transferring activities that require him to stand up; decreased safety awareness noted. OT Mcc Goals Synthetic Chemist Goals Time Frame: April 21, 2018 Eating (FIM): 6 (met 04/15/18) Eating (QC): 6 (6-MET) Oral Hygiene (QC): 6 (6-MET) Grooming(FIM): 6 (met 04/15/18) Bathing(FIM): 5 (met 04/15/18) Shower/Bathe Self (QC): 5 (4-not met) Upper Body Dressing(FIM): 6 (met 04/15/18) Upper Body Dressing (QC): 6 (6-MET) Lower Body Dressing(FIM): 5 (met 04/15/18) Lower Body Dressing (QC): 5 (4-not met) On/Off Footwear (QC): 5 (5-MET) Toileting(FIM): 6 Toileting Hygiene (QC): 6 Toilet/Commode Transfer(FIM): 6 (not met) Toilet/Commode Transfer (QC): 6 (4-not met) Shower Transfer(FIM): 5 (met 04/15/18) Comprehension(FIM): 7 (MET) Expression (FIM): 7 (MET) Social Interaction(FIM): 7 (MET) Problem Solving(FIM): 7 (MET) Memory(FIM): 7 (MET) Additional Goals: 2-Verbalize Understanding, 3-ImproveStrength/Aristides 1=Demonstrate adherence to instructed precautions during ADL tasks. 2=Patient will verbalize/demonstrate understanding of assistive devices/ modifications for ADL. 3=Patient will improve strength/tolerance for activity to enable patient to perform ADL's. Speech Synthetic Chemist Goals Mcc Goals 1. The patient will demonstrate improved expression for increased function and safety with ADL's in the least restrictive setting. Time Frame: Two Weeks Comprehension: 7 (MET) Expression: 7 (MET) Social Interaction: 7 (MET) Problem Solvin (MET) Memory: 7 (MET) CLARISSA HENSLEY PT April 16, 2018 10:18
--- NOTE | 2018-04-16 11:03 | Physical Therapy Daily Note ---
PT Daily Note-Current Subjective Wants to take a short walk this morning. Pt reprots he is not leaving until later this evening. Transfers Functional [place] Measure 0=Not Assessed/NA 4=Minimal Assistance 1=Total Assistance 5=Supervision or Setup 2=Maximal Assistance 6=Modified [place] 3=Moderate Assistance 7=Complete IndependenceIRFPAI Quality Coding Scale 6 Independent with activity with or without an assistive device 5 Patient requires set up or clean up by helper. Patient completes activity by themselves 4 Supervision or touching assist (CGA). [place] provide cues , steadying assist 3 The helper provides less than half the effort to complete the activity 2 The helper provides more than half the effort to complete the activity 1 Dependent. The helper does all the effort to complete an activity 7 Patient refused to complete or attempt activity 9 The patient did not perform the activity before the current illness or injury 88 Not attempted due to Medical conditions or safety concerns Weight Bearing Right Lower Extremity: Right Full Weight Bearing Left Lower Extremity: Left Full Weight Bearing Treatments Gait training 150 ft x 4 with QC with CGA. No noted LOB. SPT x 2 on/off the nu step. Rode the Nu Step x 15 minutes for functional LE strength. Assessment Current Status: Good Progress Pt to discharge this date. PT Short Term Goals Short Term Goals Time Frame: April 10, 2018 Gait (FIM): 4 Distance (FIM): 3=150 ft Gait Distance Comment: 200' Gait Level of Assist: 4 Gait Assistive Device: Walker Osei Wheelchair (FIM): 5 (met) Wheelchair distance (FIM): 3=150 ft Wheelchair Distance: 300' Wheelchair Level of Assist: 5 Stairs (FIM): 2 # of Steps: 4 Stairs Level of Assist: 4 PT Snf Goals Snf Goals PT Snf Goals Time Frame: April 30, 2018 Transfers (B,C,W/C) (FIM): 6 (unmet, scored a 4) Sit to Lying (QC): 6 (met) Lying-Sitting on Side/Bed(QC): 6 (met) Sit to Stand (QC): 6 (unmet) Rollin (met) Roll Left to Right (QC): 6 (met) Chair/Jtt-fv-Ewwmw Xfer(QC): 6 (unmet) Car Transfer (QC): 6 (unmet) Does the Patient Walk: Yes Gait (FIM): 5 (unmet) Gait distance (FIM): 3=150 ft Distance: 250' Walk 10 feet (QC): 6 (unmet) Walk 10ft-Uneven Surface(QC): 5 (unmet) Walk 50ft with 2 Turns (QC): 6 (unmet) Walk 150 ft (QC): 6 (unmet) Gait Level of Assist: 5 Gait Assistive Device: Walker Osei Does the Pt use WC or Scooter?: Yes Wheelchair (FIM): 6 Wheelchair distance (FIM): 3=150 ft Wheelchair Level of Assist: 6 Wheel 50 feet with 2 turns (QC: 6 (met) Stairs (FIM): 5 (unmet) # of Steps: 12 1 Step (curb) (QC): 5 (unmt) 4 Steps (QC): 5 (unmet) 12 Steps (QC): 5 (unmet) Stairs Level Of Assist: 5 Picking up an Object (QC): 6 (unmet) PT Plan Problem List Problem List: Activity Tolerance, Functional Strength, Safety Treatment/Plan Treatment Plan: Discontinue PT Treatment Plan: Bed Mobility, Concurrent Therapy, Education, Functional Activity Aristides, Functional Strength, Group Therapy, Gait, Safety, Therapeutic Exercise, Transfers Treatment Duration: April 30, 2018 Frequency: At least 5 of 7 days/Wk (IRF) Estimated Hrs Per Day: 1.5 hours per day Patient and/or Family Agrees t: Yes Time/GCodes Time In: 1030 Time Out: 1101 Total Billed Treatment Time: 31 Total Billed Treatment visit EX 15 GT 16 CLARISSA HENSLEY PT April 16, 2018 11:03
[2018-04-16] MEDS: RIVAROXABAN 20 MG TABLET (XARELTO) PO SCH (16:33)
[2018-04-16 17:14] VITALS: BP 123/69
[2018-04-16] MEDS: ATORVASTATIN 80 MG (LIPITOR) TABLET PO SCH (20:15)
--- NOTE | 2018-04-20 15:32 | Therapy Team Discharge Summary ---
Therapy Discharge Summary Discharge Recommendations Date of Discharge April 16, 2018 at 20:55 Therapy D/C Recommendations: Home w/ Family Support Occupational Therapy Pt was seen for skilled OT to increase his independence in basic self care after CVA with resultant hemiparesis. On admission he needed setup for eating, supervision for grooming, min assist toilet and shower transfers, mod assist bathing upper body dressing and max assist lower body dressing. By discharge he was modified independent with eating, upper body dressing and grooming, SBA bathing, lower body dressing, toilet and shower transfers. Nursing reported he was modified indep with toileting. Equipment used included shower bench, grab bars, hand held shower, long handled sponge, w/c. See tx plan for goals met. Recommend home health OT. DC OT. Decreased UE Strength, Dependent Transfers, Impaired Funct Balance, Impaired Self-Care Skills PT Outbound Sales Professional Goals Outbound Sales Professional Goals PT Outbound Sales Professional Goals Time Frame: April 30, 2018 Transfers (B,C,W/C) (FIM): 6 (unmet, scored a 4) Roll Left to Right (QC): 6 (met) Sit to Lying (QC): 6 (met) Lying-Sitting on Side/Bed(QC): 6 (met) Sit to Stand (QC): 6 (unmet) Chair/Mfy-ln-Ozyfl Xfer(QC): 6 (unmet) Car Transfer (QC): 6 (unmet) Does the Patient Walk: Yes Gait (FIM): 5 (unmet) Gait distance (FIM): 3=150 ft Distance: 250' Walk 10 feet (QC): 6 (unmet) Walk 10ft-Uneven Surface(QC): 5 (unmet) Walk 50ft with 2 Turns (QC): 6 (unmet) Walk 150 ft (QC): 6 (unmet) Gait Level of Assist: 5 Gait Assistive Device: Walker Osei Does the Pt use WC or Scooter?: Yes Wheelchair (FIM): 6 Wheelchair distance (FIM): 3=150 ft Wheelchair Level of Assist: 6 Wheel 50 feet with 2 turns (QC: 6 (met) Stairs (FIM): 5 (unmet) # of Steps: 12 1 Step (curb) (QC): 5 (unmt) 4 Steps (QC): 5 (unmet) 12 Steps (QC): 5 (unmet) Stairs Level Of Assist: 5 Picking up an Object (QC): 6 (unmet) OT Senior Living Goals Outbound Sales Professional Goals Time Frame: April 21, 2018 Eating (FIM): 6 (met 04/15/18) Eating (QC): 6 (6-MET) Oral Hygiene (QC): 6 (6-MET) Grooming(FIM): 6 (met 04/15/18) Bathing(FIM): 5 (met 04/15/18) Shower/Bathe Self (QC): 5 (4-not met) Upper Body Dressing(FIM): 6 (met 04/15/18) Upper Body Dressing (QC): 6 (6-MET) Lower Body Dressing(FIM): 5 (met 04/15/18) Lower Body Dressing (QC): 5 (4-not met) On/Off Footwear (QC): 5 (5-MET) Toileting(FIM): 6 (met per nursing report) Toileting Hygiene (QC): 6 (met per nursing report) Toilet/Commode Transfer(FIM): 6 (not met) Toilet/Commode Transfer (QC): 6 (4-not met) Shower Transfer(FIM): 5 (met 04/15/18) Comprehension(FIM): 7 (MET) Expression (FIM): 7 (MET) Social Interaction(FIM): 7 (MET) Problem Solving(FIM): 7 (MET) Memory(FIM): 7 (MET) Additional Goals: 2-Verbalize Understanding, 3-ImproveStrength/Aristides 1=Demonstrate adherence to instructed precautions during ADL tasks. 2=Patient will verbalize/demonstrate understanding of assistive devices/ modifications for ADL. 3=Patient will improve strength/tolerance for activity to enable patient to perform ADL's. Speech Outbound Sales Professional Goals Senior Living Goals 1. The patient will demonstrate improved expression for increased function and safety with ADL's in the least restrictive setting. Time Frame: Two Weeks Comprehension: 7 (MET) Expression: 7 (MET) Social Interaction: 7 (MET) Problem Solvin (MET) Memory: 7 (MET) JOVAN DENIS OT April 20, 2018 15:31
--- NOTE | 2018-05-06 02:47 | DISCHARGE SUMMARY ---
DATE OF SERVICE: 04/16/2018 HISTORY OF PRESENT ILLNESS: The patient is a 43-year-old male who has been working in [place], [place] and living with his and was independent, who sustained a right CVA with resulting left hemiparesis and had a decline in his functional independence. He was treated acutely at [facility] in [place], [place] and was placed on aspirin and Lipitor and his Xarelto was resumed, which he had not been taken due to financial reasons. His lisinopril for hypertension was continued as well. He is without any medical insurance currently, I believe he has Medicaid pending. He was outside the window for TPA. MRI revealed a right internal capsular stroke. The patient does have a history of [place] type B dissection of the aorta being followed by serial CTAs and that is why he had been on Xarelto. PAST MEDICAL HISTORY: Hypertension and Kend[place] type B dissection of the aorta. 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 MEDICAL COURSE: The patient was followed by Dr. Tovar and Dr. Hackett while on rehab unit. He was afebrile during his stay. His pulse was 87 on 04/16/2018, blood pressure 123/69, O2 sat 98% on room air. He was continued on his medications for his hypertension and the patient continued to abstain from tobacco use as he has a history of tobaccoism. REHABILITATION COURSE: He progressed well with his therapies. He had increased strength and endurance. OT notes upon admission, he needed set up for eating, supervision for grooming, min assist for toileting and shower transfers, mod assist for bathing and upper body dressing, and max assist for lower body dressing. By discharge, he was modified independent with eating, upper body dressing and grooming; standby assist for bathing, lower body dressing, toilet and shower transfers. Speech therapy notes that they focused on oral motor exercises as well as intelligibility strategies. The patient was able to demonstrate all exercises independently and with high accuracy and speech and swallow had improved to functional levels. PT notes upon admission, he was min assist with transfers, could ambulate 150 feet with assist, went up and down one step and was standby assist with wheelchair mobility. His primary impairment is decreased safety awareness. At discharge, he is still min assist with transfers and min assist with gait due to this, but he is modified independent with wheelchair mobility. His mobility in general has improved. It was recommended that he have followup care and therapies, but his health insurance is still pending. DISCHARGE INSTRUCTIONS: The patient is discharged to home with family and will follow up with PCP, Dustin Rae DO. Continue current diet. DISCHARGE MEDICATIONS: ASA 81 mg p.o. daily, Lipitor 80 mg p.o. each day at bedtime, lisinopril 5 mg p.o. daily, Xarelto 20 mg p.o. daily. DISCHARGE DIAGNOSES: 1. 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 2. Hypertension, controlled with medication. 3. Stroke prophylaxis, on aspirin and Xarelto and statin. 4. [place] type B dissection of aorta followed with serial MRIs and on Xarelto. 5. Left hemiplegia. 6. Dysphagia. 7. Hypertension. 8. Dissection aorta. 9. Long-term use anticoagulant. 10. Long-term use aspirin. 11. Facial weakness. 12. Nicotine dependence. CONDITION AT DISCHARGE: Improved and stable. PROGNOSIS: Rehab prognosis appears good for continued improvement. Hopefully, he will be able to obtain some ongoing therapies once he has obtained a [place] Medicaid card. Job ID: [id number] DocumentID: [id number] Dictated Date: 05/05/2018 15:24:14 Adjunct Professor Of [employer] History Date: 05/06/2018 02:47:34 Dictated By: ANALY TOVAR MD
== END 2018-04-16 20:55 | disposition home or self-care (01) | DRG 56 ==
PROVIDERS: ADMIT Physical Medicine & Rehabilitation; ATTEND Physical Medicine & Rehabilitation
DX: I69.354 Hemiplegia and hemiparesis following cerebral infarction affecting left non-dominant side (principal); I69.391 Dysphagia following cerebral infarction; I69.392 Facial weakness following cerebral infarction; I10 Essential (primary) hypertension; I71.02 Dissection of abdominal aorta; Z79.01 Long term (current) use of anticoagulants; Z79.82 Long term (current) use of aspirin; F17.210 Nicotine dependence, cigarettes, uncomplicated
CPT/HCPCS: 36415; 80053; 85027